=== PATIENT | male | born 1950 | race Caucasian/White ===

== ENCOUNTER → 2017-10-02 21:44 | Outpatient (CLI) | payer OTHER, MEDICARE, SELFPAY ==
[2017-10-02 22:01] LABS: Absolute Lymphocyte Count 2.99 X10^3/ul (0.83-4.51); Absolute Neutrophil Count 3.7 X10^3/uL (2.0-7.7); Basophil# 0.03 X10^3/uL; Basophil% 0.4 % (0-1); Eosinophil# 0.13 X10^3/uL; Eosinophils% 1.7 % (0-5); Hematocrit 38.5 % (40-54); Hemoglobin 12.8 g/dl (13.0-16.5); Lymphocyte # 2.99 X10^3/ul (4.0); Lymphocyte % 39.9 % (19-41); Mean Corp Hgb Conc 33.2 g/gl (32-36); Mean Corpuscular Volume 90.4 fL (80-94); Monocyte# 0.62 X10^3/uL; Monocyte% 8.3 % (0-10); Neutrophil # 3.71 X10^3/uL (2.7-7.7); Neutrophil % 49.6 % (47-70); Platelet Count 204 K/mm3 (150-450); RBC Distribution Width CV 13.9 % (11.6-14.6); RBC Distribution Width SD 45.6 fl (35.1-43.9); Red Blood Count 4.26 M/mm3 (4.6-6.2); White Blood Count 7.5 K/mm3 (4.4-11.0)
[2017-10-02 22:18] LABS: PSA,Total - Annual Screen 8.93 ng/mL (0.00-4.00)
[2017-10-02 22:22] LABS: POSITIVE COUNT NO; POSITIVE DIFFERENTIAL NO; POSITIVE MORPHOLOGY NO
[2017-10-04 11:11] LABS: PSA, Free 1.65 ng/mL; PSA, Free % 20.4 % (.); PSA, Total Ultrasensitive 8.1 ng/mL (0.0-4.0)
== END ==
PROVIDERS: Visit Provider Nurse Practitioner
DX: N40.0 Benign prostatic hyperplasia without lower urinary tract symptoms (principal); R97.20 Elevated prostate specific antigen [PSA]; D64.9 Anemia, unspecified
CPT/HCPCS: 84153; 84154; 85025; G0103

== ENCOUNTER → 2018-03-19 23:19 | Outpatient (CLI) | payer OTHER, MEDICARE, SELFPAY ==
[2018-03-22 09:53] LABS: PSA, Free 2.08 ng/mL; PSA, Free % 25.7 % (.); PSA, Total Ultrasensitive 8.1 ng/mL (0.0-4.0)
--- OUTSIDE RECORDS SUMMARY | 2018-05-22 00:01 | XMS RPT_ITS ---
:1950 Author Organization [facility] Care Team Providers Name Role Phone Alfonso Baptiste [facility] Attending Unavailable Alfonso Baptiste [facility] Referring Unavailable Alfonso Baptiste [facility] Primary Care Unavailable Alfonso Baptiste [facility] Attending Unavailable Alfonso Baptiste [facility] Primary Care Unavailable Alfonso Baptiste [facility] Attending Unavailable Alfonso Baptiste [facility] Referring Unavailable PADILLA FENTON MD Attending Unavailable ALFONSO BAPTISTE Primary Care Unavailable PADILLA FENTON MD Attending Unavailable BAPTISTE, ALFONSO Primary Care Unavailable LENNY GOODMAN MD Attending Unavailable BAPTISTE, ALFONSO Primary Care Unavailable LENNY GOODMAN MD Attending Unavailable BAPTISTE, ALFONSO Primary Care Unavailable JOSSY CISSE, PADILLA Attending Unavailable BAPTISTE, ALFONSO Primary Care Unavailable JOSSY CISES, PADILLA Attending Unavailable BAPTISTE, ALFONSO Primary Care Unavailable PROBLEMS PROBLEMS DATE TYPE CONDITION / CODE ATTENDING STATUS SOURCE 03/20/2018 Unknown N40.0 - Benign Baptiste, Active [place] prostatic Alfonso [facility] hyperplasia Hospital without lower Repository urinary tract symptoms / N40.0(ICD-10) 03/20/2018 Unknown R97.20 - Elevated Baptiste, Active [place] prostate specific Alfonso [facility] Community antigen [PSA] / Hospital R97.20(ICD-10) Repository 10/03/2017 Unknown D64.9 - Anemia, Baptiste, Active [place] unspecified / Alfonso [facility] Community D64.9(ICD-10) Hospital Repository PROCEDURES PROCEDURES No Procedure Records FoundRESULTS RESULTS OFFICE VISIT Observed: 03/22/2018 Status: F Source: [place] 6:40 PM [facility] REPOSITORY [facility] [address] [place] [address] OFFICE VISIT Date of Service: 03/22/18 MR#: [id number] Acct: [id number] Name: IMTIAZ POSADAS Jr. Rep #: [id number] : 1950 Provider: ALON Baptiste Age/Sex: 67/M Location: [facility] Status: Signed Intake Vital Signs03/22/18 Height 5 ft 9 in 03/22/18 Weight: 190 lb Intake Visit Reasons: RX REFILL Accompanied by: self Is patient in pain?: No Allergies Penicillins Allergy (Severe, Verified 03/20/18 17:16) RASH Qmohzha-Mnk-Lgr Reductase Inhibitor Allergy (Severe, Verified 03/20/18 17:16) MUSCLE ACHES Medications VITAMIN E See Rx Instructions .ROUTE .COMPLEX 03/20/18 [History Confirmed 03/20/18] amlodipine 10 mg tablet 10 mg PO DAILY 03/20/18 [History Confirmed 03/20/18] ascorbic acid (vitamin C) 500 mg capsule mg PO cap 03/20/18 [History Confirmed 03/20/18] aspirin 325 mg tablet 325 mg PO DAILY 03/20/18 [History Confirmed 03/20/18] cholecalciferol (vitamin D3) 1,000 unit capsule 1,000 unit PO DAILY 03/20/18 [History Confirmed 03/20/18] coenzyme Q10 100 mg capsule 100 mg PO DAILY 03/20/18 [History Confirmed 03/20/18] meclizine 12.5 mg tablet 12.5 mg PO TID PRN 03/20/18 [History Confirmed 03/20/18] niacin ER 500 mg tablet,extended release 24 hr 500 mg PO QHS 03/20/18 [History Confirmed 03/20/18] vitamin B complex tablet 1 tab PO DAILY 03/20/18 [History Confirmed 03/20/18] atorvastatin 40 mg tablet 40 mg PO DAILY #30 tab 03/22/18 [Rx Confirmed 03/22/18] lisinopril 10 mg tablet 10 mg PO DAILY #30 tab 03/22/18 [Rx Confirmed 03/22/18] metoprolol tartrate 25 mg tablet 25 mg PO BID #60 tab 03/22/18 [Rx Confirmed 03/22/18] rivaroxaban 20 mg tablet 20 mg PO DAILY #30 tab 03/22/18 [Rx Confirmed 03/22/18] tamsulosin 0.4 mg capsule 0.8 mg PO DAILY #60 cap 03/22/18 [Rx Confirmed 03/22/18] [facility] Medical History 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 (Acute) S/P triple vessel bypass (Acute) Social History Smoking Status: Current every day smoker second hand exposure: Yes alcohol intake: current substance use type: does not use HPI HPI (General) HPI HPI: KEN POSADAS, is a 67 M who presents to the office today for medication refills doing well no c/o feels well. Done with PT and still does his exercises and lifting weights . working on finding words and puzzles ROS Const Constitutional: No anorexia, body ache, chills, excessive sweating, fatigue, fever(s), frequent falls, headache(s), decreased energy, malaise, night sweats, snoring, weakness, weight change, sleep problems, abnormal sleep pattern, change in appetite or other Eyes Eyes: No blurry vision, change in vision, double vision, discharge, dry eyes, bulging eyes, floaters, visual disturbances, eye pain, light sensitivity, spots in vision, tunnel vision or other ENT ENT: No headache(s), abnormal hearing, ear pain, ear discharge, ear pressure, hearing loss, tinnitus, dizziness/vertigo, balance problems, nosebleed/epistaxis, nasal congestion, nasal obstruction, nose pain, sinus pressure, sinus pain, nasal discharge, post nasal drip, facial pain, dental pain, dry mouth, difficulty swallowing, bad breath, hoarseness, lip swelling, mouth lesions, mouth pain, neck pain, sore throat, tongue swelling, throat swelling or other Resp Respiratory: No snoring, cough, change in phlegm color, chest congestion, excessive phlegm production, hemoptysis, pain on inspiration, shortness of breath, pain with cough, stridor, wheezing or other Cardio Cardiology: No excessive sweating, chest pain at rest, chest pain with exertion, leg pain with exertion, shortness of breath, dyspnea on exertion, generalized swelling, irregular heart rhythm, lightheadedness, orthopnea, radiating jaw, neck or arm pain, fast heart rate, slow heart rate, palpitations or other Gastro GI: No other, No Difficulty Swallowing, No abdominal pain, No belching, No bloating, No change in bowel habits, No change in stool character, No coffee ground emesis, No constipation, No cramping, No diarrhea, No heartburn, No feeling full early, No excessive flatus, No incontinent of stools, No Vomiting blood/hematemesis, No Blood in stool, No loose stools, No Black,tarry stools, No nausea/dyspepsia, No pain with swallowing, No vomiting, No hemorrhoids, No rectal pain Genitourinary: No urinary frequency, difficulty urinating, burning urination, painful urination, urinary urgency or blood in urine Musc Musculoskeletal: No neck pain, abnormal walking, joint pain, back pain, deformity, joint swelling, limited range of motion, loss of height, muscle cramps, muscle weakness, decreased muscle mass, body aches, numbness, radiating pain into limb, stiffness, tingling or other Skin Skin: No acne, hair loss, change in hair, nail changes, boil, change in skin color, dry skin, redness, excessive hair growth, yellowing of the skin, lesions, itching, rash, skin pain, skin ulcer, sores, skin swelling, wounds or other Breast Breast: No other Neuro Neurology: No frequent falls, headache(s), weakness, visual disturbances, abnormal hearing, abnormal walking, numbness, tingling, abnormal movements, abnormal speech, behavioral changes, confusion, unsteady gait/balance, dizziness, lack of coordination, loss of vision, memory loss, restless legs, fainting, tremor(s) or other Psych Psychiatric: No abnormal sleep pattern, No change in appetite, No behavioral changes, No confusion, No memory loss, No lack of enjoyment, No anxiety, No depression, No difficulty concentrating, No hopelessness, No irritability, No mood swings, No panic attacks, No paranoia, No Thoughts of harming yourself/Others, No hallucinations, No other Endo Endo: No excessive sweating, No fatigue, No other Aller/Imm Allergy/Immunologic: No lip swelling, tongue swelling, throat swelling, wheezing or itchy eyes Exam Const Constitutional: Yes cooperative, Yes healthy appearing Orientation: Yes alert, awake and oriented x3 Chest Chest palpation AND inspection: Yes normal inspection of the chest Resp Effort AND Inspection: No stridor Auscultation: Yes clear to auscultation bilaterally Cardio Palpitation: Yes normal PMI Rate: Yes regular rate Rhythm: Yes regular rhythm GI Inspection: Yes normal to inspection Auscultation: Yes normal bowel sounds Rectal Exam: No hemorrhoids Extrem General: Yes normal to inspection Neuro General: Yes alert and oriented x3 Motor: No weakness Psych Appearance: Positive grossly normal Mood: Positive congruent mood Affect: Positive normal affect Assessment AND Plan Problems 1. Benign prostatic hyperplasia without lower urinary tract symptoms N40.0 2. Essential hypertension I10 3. Mixed hyperlipidemia E78.2 4. Anemia, unspecified type D64.9 Patient Instructions continue the medications as prescribed follow up as needed Will call with the lab results Orders Orders: Medications New: Discontinued: Coding Level of Care Code Off vis,est,level 3 Diagnoses Benign prostatic hyperplasia without lower urinary tract symptoms N40.0 Lower urinary tract symptom presence: symptoms absent Essential hypertension I10 Hypertension type: essential hypertension Mixed hyperlipidemia E78.2 Hyperlipidemia type: mixed hyperlipidemia Anemia, unspecified type D64.9 Anemia type: unspecified type 03/22/18 1840 <Electronically signed by Alfonso STANLEYC> Date Alfonso BRANDT CC: CBC W/DIFF, AUTOMATED Collected: 03/22/2018 Status: F Source: [place] 5:25 PM [facility] REPOSITORY TYPE CODE TESTS RESULT OUT OF RANGE REFERENCE UNITS LAB L100.1000 4.4-11.0 K/mm3 Normal WBC 7.6 LAB L100.1200 4.6-6.2 M/mm3 Normal RBC 4.63 LAB L100.1300 13.0-16.5 g/dl Normal HGB 14.0 LAB L100.1400 40-54 % Normal HCT 42.8 LAB L100.1500 80-94 fL Normal MCV 92.4 LAB L100.1600 27.0-32.0 pg Normal MCH 30.2 LAB L100.1700 32-36 g/gl Normal MCHC 32.7 LAB L100.1810 11.6-14.6 % Normal RDW CV 13.1 LAB L100.1820 35.1-43.9 fl Normal RDW SD 43.7 LAB L100.1900 150-450 K/mm3 Normal PLT 164 LAB L100.2000 6.2-12.0 fl Normal MPV 11.1 LAB L100.2100 47-70 % Normal NEUT% 55.4 LAB L100.2200 19-41 % Normal LY% 32.7 LAB L100.2300 0-10 % Normal MONO% 9.2 LAB L100.2400 0-5 % Normal EO% 2.0 LAB L100.2500 0-1 % Normal BASO% 0.4 LAB L100.2550 0.0-0.9 % Normal IM GRAN % 0.300 Result Comment: IG% - Immature Granulocytes (promyelocytes, myelocytes and metamyelocytes) > 1% indicates that a LEFT SHIFT is Present. LAB L100.2620 2.0-7.7 X10 3/uL Normal Absolute Neut 4.2 LAB L100.2720 0.83-4.51 X10 3/ul Normal Absolute Lymph 2.49 Performed By: #### L100.0100, L500.4050, L500.4100 #### [facility] [address] [place], [place], [address] COMPREHENSIVE METABOLIC Collected: 03/22/2018 Status: F Source: [place] [facility] 5:25 PM [facility] REPOSITORY TYPE CODE TESTS RESULT OUT OF RANGE REFERENCE UNITS LAB L501.0100 74-106 mg/dL Normal GLU 88 Result Comment: Please note revised GLUCOSE reference range effective 2017. LAB L501.1000 7-18 mg/dL High BUN 25 LAB L501.1100 0.70-1.30 mg/dL High CREAT,SERUM 1.48 Result Comment: The validity of the calculated GFR AND GFRAA in patients over 70 years has not been determined. Clinical correlation is essential. LAB L501.1110 >60 mL/min Low EST GFR 50 Result Comment: Non- GFR Calc LAB L501.1115 >60 mL/min Normal EST GFR - AA 61 Result Comment: GFR Calc LAB L501.1300 10-20 RATIO Normal BUN/CRE 16.9 LAB L501.1500 6.4-8.2 g/dL T Normal PROT 7.7 LAB L501.1800 3.2-5.0 g/dL Normal ALB 4.2 LAB L501.1950 2.2-4.2 g/dL Normal GLOB 3.5 LAB L501.2000 0.9-2.4 RATIO Normal A/G 1.2 LAB L501.2200 8.5-10.1 mg/dL CA Normal 8.9 LAB L501.4100 15-37 U/L Normal AST 31 LAB L501.4305 45-117 U/L Normal ALK P 74 LAB L501.4405 16-61 U/L High ALT 62 LAB L501.4600 0.20-1.00 mg/dL T Normal BILI 0.60 LAB L501.5300 136-145 mmol/L NA Normal 139 LAB L501.5600 3.5-5.1 mmol/L K Normal 4.2 LAB L501.5900 98-107 mmol/L CL Normal 106 LAB L501.6100 21.0-32.0 mmol/L Normal CO2 26.0 LAB L501.6200 5-15 Normal GAP 7 Performed By: #### L100.0100, L500.4050, L500.4100 #### [facility] [address] [place], [place], [address] LIPID PROFILE Collected: 03/22/2018 Status: F Source: [place] 5:25 PM [facility] REPOSITORY TYPE CODE TESTS RESULT OUT OF RANGE REFERENCE UNITS LAB L501.4900 200 mg/dL Normal CHOL 152 Result Comment: <200 mg/dL Desirable 200-240 mg/dL Borderline >240 mg/dL High Risk LAB L501.5000 mg/dL High TRIG 248 Result Comment: The drugs N-Acetylcysteine and Metamizole may falsely depress this assay. Serum Triglycerides Reference Interval Normal <150 mg/dL Borderline high 150 - 199 mg/dL High 200 - 499 mg/dL Very High > or = 500 mg/dL LAB L501.6400 mg/dL Low HDL 35 Result Comment: The drugs N-Acetylcysteine and Metamizole may falsely depress this assay. Reference Range HDL <40 mg/dL Low HDL Cholesterol HDL >or= 60 mg/dL High HDL Cholesterol LAB L501.6500 0-130 mg/dL Normal LDL 67 LAB L501.6600 5-40 mg/dL High VLDL 50 Performed By: #### L100.0100, L500.4050, L500.4100 #### [facility] [address] [place], [address] PSA TOTAL+%FREE Collected: 03/19/2018 Status: F Source: [place] 5:10 PM [facility] REPOSITORY TYPE CODE TESTS RESULT OUT OF RANGE REFERENCE UNITS LAB L3110.0700 0.0-4.0 ng/mL High PSA, 8.1 TOTAL Result Comment: Aileen ECLIA methodology. According to the [employer], Serum PSA should decrease and remain at undetectable levels after radical prostatectomy. The AUA defines biochemical recurrence as an initial PSA value 0.2 ng/mL or greater followed by a subsequent confirmatory PSA value 0.2 ng/mL or greater. Values obtained with different assay methods or kits cannot be used interchangeably. Results cannot be interpreted as absolute evidence of the presence or absence of malignant disease. LAB L3110.0800 N/A ng/mL Normal PSA, 2.08 FREE Result Comment: Aileen ECLIA methodology. LAB L3110.0900 . % Normal PSA, FREE 25.7 % Result Comment: The table below lists the probability of prostate cancer for men with non-suspicious LIU results and total PSA between 4 and 10 ng/mL, by patient age (Louie et al, CATHERINE 1998, 279:1542). % Free PSA 50-64 yr 65-75 yr 0.00-10.00% 56% 55% 10.01-15.00% 24% 35% 15.01-20.00% 17% 23% 20.01-25.00% 10% 20% >25.00% 5% 9% Please note: Louie et al did not make specific recommendations regarding the use of percent free PSA for any other population of men. Performed at: [facility] [address] [id number] Director Biologics: Robbie Mulligan PhD, Phone: [phone] Performed By: #### L3110.0500 #### [facility] (refer to report for specific site) refer to report for address and phone number AMB OFFICE-PROGRESS Observed: 12/11/2017 Status: F Source: [facility] NOTES-PROVIDER 8:39 AM [facility] REPOSITORY Patient: IMTIAZ POSADAS Age: 67 years Sex: Male : 1950 Associated Diagnoses: None Author: JOSSY CISSE, [facility] Visit Information Visit type: Scheduled follow-up. Accompanied by: No one. Source of history: Self. History limitation: None. Chief Complaint 12/10/2017 10:21 EDT HLD, CAD History of Present Illness Cuauhtemoc is here for follow-up for his coronary artery disease hypertension and hyperlipidemia. He lost to 60% of his vision in the right eye and his balance is getting better and is looks much michael r since last visit. He is able to walk, drive and take care of the cooking in the kitchen and does household work. No chest pain no shortness of breath no jaw pain no lightheadedness but feels rather unsteady at times. Blood pressure 138/73 and is very compliant with his diet and medications. He is beginning to accept that he had a stroke but is recovering pretty well. Review of Systems Constitutional: Negative. Eye: Negative. Ear/Nose/Mouth/Throat: Negative. Respiratory: No shortness of breath, No cough, No wheezing. Cardiovascular: No chest pain, No palpitations, No peripheral edema. Gastrointestinal: No nausea, No vomiting, No heartburn, No abdominal pain. Genitourinary: Negative. Hematology/Lymphatics: Negative. Endocrine: Negative. Immunologic: Negative. Musculoskeletal: Negative. Integumentary: Negative. Psychiatric: Negative. Health Status Allergies: Allergic Reactions (All) Severity Not Documented Penicillins- Childhood rxn -rash. Canceled/Inactive Reactions (All) No Known Medication Allergies, Allergies (1) Active Reaction penicillins childhood rxn -rash Current medications: (Selected) Prescriptions Prescribed Antivert 12.5 mg oral tablet: 12.5 mg = 1 tabs, ORAL, TID, PRN: as needed for dizziness, 90 tabs, 0 Refill(s) Flomax 0.4 mg oral capsule: 0.8 mg = 2 caps, ORAL, QHS, 60 caps, 0 Refill(s) Xarelto 20 mg oral tablet: 20 mg = 1 tabs, ORAL, DAILY WITH SUPPER, 30 tabs, 0 Refill(s) atorvastatin 40 mg oral tablet: 40 mg = 1 tabs, ORAL, DAILY, 30 tabs, 0 Refill(s) lisinopril 10 mg oral tablet: 10 mg = 1 tabs, ORAL, DAILY, 30 tabs, 0 Refill(s) metoprolol tartrate 25 mg oral tablet: 25 mg = 1 tabs, ORAL, BID, 60 tabs, 0 Refill(s) senna 17.2 mg oral tablet: 34.4 mg, ORAL, QHS, 2 tabs oral at bedtime, PRN: as needed for constipation, 60 tabs, 0 Refill(s) Documented Medications Documented Tylenol 325 mg oral capsule: 650 mg, Nasogastric Tube, [id number], PRN: as needed for pain, 0 Refill(s) amLODIPine 10 mg oral tablet: 10 mg = 1 tabs, ORAL, DAILY, 90 tabs, 3 Refill(s) aspirin 81 mg oral tablet, chewable: 81 mg = 1 tabs, ORAL, DAILY WITH BREAKFAST, 0 Refill(s) Problem list: Active Problems (7) At risk for falls CAD (coronary artery disease) Cerebrovascular accident (CVA) HLD (hyperlipidemia) HTN (hypertension) Retinal disorder S/p CABG (coronary artery bypass graft) Histories Past Medical History: No qualifying data available Family History: Father High blood pressure.... Mother High blood pressure.... Procedure history: Transesophageal Echocardiogram. ([id number]) on 11/03/2016 at 66 Years. Cardioversion. ([id number]) on 11/03/2016 at 66 Years. Coronary Artery Bypass Graft (CABG). ([id number]) on 10/27/2016 at 66 Years. Comments: 10/27/2016 12:27 - Daren Diop RN RIGHT RADIAL ARTERY HARVEST. Coronary Angiograms. ([id number]) on 10/26/2016 at 66 Years. laser rt eye. Comments: 10/26/2016 18:50 - Tere Helton RN 4 mo cardiac stents x2. Comments: 10/26/2016 18:51 - Tere Helton RN 13 yr ago Social History Social & Psychosocial Habits Alcohol 10/26/2016 Use: Current Type: Beer Frequency: 1-2 times per week Exercise 01/04/2017 Risk Assessment: Regular exercise Home/Environment 10/26/2016 Lives with: Spouse *Living Situation Prior to Admission Home/Independent Home equipment: None Monitoring Equipment in home bp machine *Special Services and Community Resources Prior to Admission None *Mobility Assistance Prior to Admission Independent Home Barriers None *Will patient require additional/new services upon discharge Yes Comment: ss for dc planning. going for open heart in am - 10/26/2016 18:49 - Tere Helton RN Other 06/13/2017 Name: caffiene Comment: 2-3 cups coffee daily - 06/13/2017 14:14 - Phyllis Griffin MA Substance Abuse 10/26/2016 Risk Assessment: Denies Substance Abuse Tobacco 10/26/2016 Use: Former smoker Type: Cigarettes Stopped at age: 29 Years *Exposure to Tobacco Smoke No Exposure Comment: stopped cigars 1 yr ago - 10/26/2016 18:48 - Danie RN, Tere Domestic Concerns 10/26/2016 Feels highly stressed: No *Requesting to speak to someone regarding stress No Emotional Support Available Yes Coping Effective *Patient's Responsibilities Driving, Hobbies/Play/Sports, Housework, Laundry, Meal preparation, Yard work *Financial Concerns Regarding Hospitalization/Discharge No Financial Concerns No *Requesting to speak to someone regarding financial concerns No Concern for family members at home: No Major illness in household: No *Family/Friends available to help: Yes . Physical Examination Temperature 97 (10:22) Systolic Blood Pressure No result Diastolic Blood Pressure No result Pulse 64 (10:22) SpO2 No result Respiratory Rate No result VS/Measurements Documented vital signs: Blood Pressure ( Systolic 138 mmHg, Diastolic 73 mmHg ) General: Alert and oriented, No acute distress. Eye: Normal conjunctiva, Vision unchanged. HENT: Normal hearing. Neck: Supple, Non-tender, No carotid bruit, No jugular venous distention, No lymphadenopathy. Respiratory: Lungs are clear to auscultation, Breath sounds are equal, Symmetrical chest wall expansion. Cardiovascular: Normal rate, No gallop, Good pulses equal in all extremities, Normal peripheral perfusion, No edema. Bruit: None. Gastrointestinal: Soft, Non-tender, Normal bowel sounds. Genitourinary: No costovertebral angle tenderness. Musculoskeletal: No tenderness, No swelling. Integumentary: Warm, Dry. Neurologic: Alert, Normal sensory, Normal motor function, Cranial Nerves II-XII are grossly intact. Review / Management No qualifying data available Impression and Plan 1.CAD 2.CABG and status post AF but now in sinus 3.Right cerebellar CVA: recovering well 4.Hypertension 5.Hyperlipidemia 6.Continue current activity 7.Continue current medicatoins 8.Follow up in six months 9.Copy to Alfonso Baptiste PROVIDER LETTER - Observed: 12/11/2017 Status: F Source: [facility] AMBULATORY 8:34 AM [facility] REPOSITORY ALFONSO BAPTISTE, [address] [facility] [address] [place] [id number] RE: IMTIAZ CUAUHTEMOC - 1950 12/10/2017 Dear ALFONSO BAPTISTE This document is confidential and intended solely for the use of the individual or entity to which they are addressed. If you are not the named addressee, please disregard and do not disseminate, distr ibute or copy this information. If you are not the intended recipient you are notified that any disclosure of this information and its contents are strictly prohibited. If you have any questions about this document, please contact the office. Sincerely, Rachel Reynolds [facility] The following document(s) were included in the letter: December 10, 2017 15:13:00 EDT - (12/10/2017) Cardiiology Office Notes OFFICE VISIT Observed: 10/11/2017 Status: F Source: [place] 1:30 PM [facility] REPOSITORY [facility] [address] [place] [address] OFFICE VISIT Date of Service: 10/02/17 MR#: [id number] Acct: [id number] Name: KEN POSADAS Rep #: [id number] : 1950 Provider: [place] Nurse RN Age/Sex: 67/M Location: [facility] Status: Signed Intake Intake Visit Reasons: blood draw HPI HPI (General) HPI HPI: KEN POSADAS, is a 67 M who presents to the office today for Assessment AND Plan Orders Orders: 10/11/17 1330 <Electronically signed by Alfonso BRANDT> Date Alfonso BRANDT CC: PSA,TOTAL - ANNUAL Collected: 10/02/2017 Status: F Source: [place] SCREEN 5:20 PM [facility] REPOSITORY TYPE CODE TESTS RESULT OUT OF REFERENCE UNITS RANGE LAB L501.9910 0.00-4.00 ng/mL High PSA,TOT 8.93 SCREEN Result Comment: This test was performed using the TPSA assay method for the Towi chemistry system. Values obtained with different assay methods cannot be used interchangably. When changing PSA assays in the course of monitoring a patient, additional sequential testing should be carried out to confirm baseline values. Performed By: #### L501.9910 #### [facility] [address] [place], [address] #### L3110.0500 #### [facility] (refer to report for specific site) refer to report for address and phone number PSA TOTAL+%FREE Collected: 10/02/2017 Status: F Source: [place] 5:20 PM [facility] REPOSITORY TYPE CODE TESTS RESULT OUT OF RANGE REFERENCE UNITS LAB L3110.0700 0.0-4.0 ng/mL High PSA, 8.1 TOTAL Result Comment: Aileen ECLIA methodology. According to the [employer], Serum PSA should decrease and remain at undetectable levels after radical prostatectomy. The AUA defines biochemical recurrence as an initial PSA value 0.2 ng/mL or greater followed by a subsequent confirmatory PSA value 0.2 ng/mL or greater. Values obtained with different assay methods or kits cannot be used interchangeably. Results cannot be interpreted as absolute evidence of the presence or absence of malignant disease. LAB L3110.0800 N/A ng/mL Normal PSA, 1.65 FREE Result Comment: Aileen ECLIA methodology. LAB L3110.0900 . % Normal PSA, FREE 20.4 % Result Comment: The table below lists the probability of prostate cancer for men with non-suspicious LIU results and total PSA between 4 and 10 ng/mL, by patient age (Louie et al, CATHERINE 1998, 279:1542). % Free PSA 50-64 yr 65-75 yr 0.00-10.00% 56% 55% 10.01-15.00% 24% 35% 15.01-20.00% 17% 23% 20.01-25.00% 10% 20% >25.00% 5% 9% Please note: Louie et al did not make specific recommendations regarding the use of percent free PSA for any other population of men. Performed at: [facility] [id number] Director Biologics: Robbie Mulligan PhD, Phone: [phone] Performed By: #### L501.9910 #### [facility] [place], [address] #### L3110.0500 #### [facility] (refer to report for specific site) refer to report for address and phone number CBC W/DIFF, AUTOMATED Collected: 10/02/2017 Status: F Source: [place] 5:20 PM [facility] REPOSITORY TYPE CODE TESTS RESULT OUT OF RANGE REFERENCE UNITS LAB L100.1000 4.4-11.0 K/mm3 Normal WBC 7.5 LAB L100.1200 4.6-6.2 M/mm3 Low RBC 4.26 LAB L100.1300 13.0-16.5 g/dl Low HGB 12.8 LAB L100.1400 40-54 % Low HCT 38.5 LAB L100.1500 80-94 fL Normal MCV 90.4 LAB L100.1600 27.0-32.0 pg Normal MCH 30.0 LAB L100.1700 32-36 g/gl Normal MCHC 33.2 LAB L100.1810 11.6-14.6 % Normal RDW CV 13.9 LAB L100.1820 35.1-43.9 fl High RDW SD 45.6 LAB L100.1900 150-450 K/mm3 Normal PLT 204 LAB L100.2000 6.2-12.0 fl Normal MPV 11.0 LAB L100.2100 47-70 % Normal NEUT% 49.6 LAB L100.2200 19-41 % Normal LY% 39.9 LAB L100.2300 0-10 % Normal MONO% 8.3 LAB L100.2400 0-5 % Normal EO% 1.7 LAB L100.2500 0-1 % Normal BASO% 0.4 LAB L100.2550 0.0-0.9 % Normal IM GRAN % 0.100 Result Comment: IG% - Immature Granulocytes (promyelocytes, myelocytes and metamyelocytes) > 1% indicates that a LEFT SHIFT is Present. LAB L100.2620 2.0-7.7 X10 3/uL Normal Absolute Neut 3.7 LAB L100.2720 0.83-4.51 X10 3/ul Normal Absolute Lymph 2.99 Performed By: #### L100.0100 #### [facility] [address] [facility] [facility], [address] [facility] OFFICE-PROGRESS Observed: 06/18/2017 Status: F Source: [facility] NOTES-PROVIDER 8:39 AM [facility] REPOSITORY Patient: IMTIAZ POSADAS Age: 66 years Sex: Male : 1950 Associated Diagnoses: None Author: JOSSY CISSE, PADILLA Visit Information Visit type: Scheduled follow-up. Accompanied by: No one. Source of history: Self. History limitation: None. Chief Complaint History of Present Illness This is follow uop visit for Imtiaz for his CAD and CABG and he is doing much better now. He completely recovered from his CVA though his balance is not perfect yet. He id driving now but his blood press ure is high today at 150/85 and I am going to increase his amlodipine to 10mg. He remains in sinus. No chest pain or dyspnea or palpitations. Review of Systems Constitutional: Negative. Eye: Negative. Ear/Nose/Mouth/Throat: Negative. Respiratory: No shortness of breath, No cough, No wheezing. Cardiovascular: No chest pain, No palpitations, No peripheral edema. Gastrointestinal: No nausea, No vomiting, No heartburn, No abdominal pain. Genitourinary: Negative. Hematology/Lymphatics: Negative. Endocrine: Negative. Immunologic: Negative. Musculoskeletal: Negative. Integumentary: Negative. Psychiatric: Negative. Health Status Allergies: Allergic Reactions (All) Severity Not Documented Penicillins- Childhood rxn -rash. Canceled/Inactive Reactions (All) No Known Medication Allergies, Allergies (1) Active Reaction penicillins childhood rxn -rash Current medications: (Selected) Prescriptions Prescribed Antivert 12.5 mg oral tablet: 12.5 mg = 1 tabs, ORAL, TID, PRN: as needed for dizziness, 90 tabs, 0 Refill(s) Flomax 0.4 mg oral capsule: 0.8 mg = 2 caps, ORAL, QHS, 60 caps, 0 Refill(s) Xarelto 20 mg oral tablet: 20 mg = 1 tabs, ORAL, DAILY WITH SUPPER, 30 tabs, 0 Refill(s) amLODIPine 5 mg oral tablet: 5 mg = 1 tabs, ORAL, DAILY, 30 tabs, 0 Refill(s) atorvastatin 40 mg oral tablet: 40 mg = 1 tabs, ORAL, DAILY, 30 tabs, 0 Refill(s) lisinopril 10 mg oral tablet: 10 mg = 1 tabs, ORAL, DAILY, 30 tabs, 0 Refill(s) metoprolol tartrate 25 mg oral tablet: 25 mg = 1 tabs, ORAL, BID, 60 tabs, 0 Refill(s) senna 17.2 mg oral tablet: 34.4 mg, ORAL, QHS, 2 tabs oral at bedtime, PRN: as needed for constipation, 60 tabs, 0 Refill(s) Documented Medications Documented Senokot 8.6 mg oral tablet: 17.2 mg = 2 tabs, ORAL, QHS, PRN: Constipation, 0 Refill(s) Tylenol 325 mg oral capsule: 650 mg, Nasogastric Tube, [id number], PRN: as needed for pain, 0 Refill(s) amLODIPine 10 mg oral tablet: 10 mg = 1 tabs, ORAL, DAILY, 90 tabs, 3 Refill(s) aspirin 81 mg oral tablet, chewable: 81 mg = 1 tabs, ORAL, DAILY WITH BREAKFAST, 0 Refill(s) Problem list: Active Problems (7) At risk for falls CAD (coronary artery disease) Cerebrovascular accident (CVA) HLD (hyperlipidemia) HTN (hypertension) Retinal disorder S/p CABG (coronary artery bypass graft) Histories Past Medical History: No qualifying data available Family History: Father High blood pressure.... Mother High blood pressure.... Procedure history: Transesophageal Echocardiogram. (23908) on 11/03/2016 at 66 Years. Cardioversion. (98480) on 11/03/2016 at 66 Years. Coronary Artery Bypass Graft (CABG). (20161) on 10/27/2016 at 66 Years. Comments: 10/27/2016 12:27 - Daren Diop RN RIGHT RADIAL ARTERY HARVEST. Coronary Angiograms. (77633) on 10/26/2016 at 66 Years. laser rt eye. Comments: 10/26/2016 18:50 - Tere Helton RN 4 mo cardiac stents x2. Comments: 10/26/2016 18:51 - Tere Helton RN 13 yr ago Social History Social & Psychosocial Habits Alcohol 10/26/2016 Use: Current Type: Beer Frequency: 1-2 times per week Exercise 01/04/2017 Risk Assessment: Regular exercise Home/Environment 10/26/2016 Lives with: Spouse *Living Situation Prior to Admission Home/Independent Home equipment: None Monitoring Equipment in home bp machine *Special Services and Community Resources Prior to Admission None *Mobility Assistance Prior to Admission Independent Home Barriers None *Will patient require additional/new services upon discharge Yes Comment: for dc planning. going for open heart in am - 10/26/2016 18:49 - Tere Helton RN Other 06/13/2017 Name: caffiene Comment: 2-3 cups coffee daily - 06/13/2017 14:14 - Gaby FRANCO Phyllis Hunter Substance Abuse 10/26/2016 Risk Assessment: Denies Substance Abuse Tobacco 10/26/2016 Use: Former smoker Type: Cigarettes Stopped at age: 29 Years *Exposure to Tobacco Smoke No Exposure Comment: stopped cigars 1 yr ago - 10/26/2016 18:48 - Tere Helton RN Domestic Concerns 10/26/2016 Feels highly stressed: No *Requesting to speak to someone regarding stress No Emotional Support Available Yes Coping Effective *Patient's Responsibilities Driving, Hobbies/Play/Sports, Housework, Laundry, Meal preparation, Yard work *Financial Concerns Regarding Hospitalization/Discharge No Financial Concerns No *Requesting to speak to someone regarding financial concerns No Concern for family members at home: No Major illness in household: No *Family/Friends available to help: Yes . Physical Examination No qualifying data available. VS/Measurements Documented vital signs: Blood Pressure ( Systolic 150 mmHg, Diastolic 85 mmHg ) General: Alert and oriented, No acute distress. Eye: Normal conjunctiva, Vision unchanged. HENT: Normal hearing. Neck: Supple, Non-tender, No carotid bruit, No jugular venous distention, No lymphadenopathy. Respiratory: Lungs are clear to auscultation, Breath sounds are equal, Symmetrical chest wall expansion. Cardiovascular: Normal rate, No gallop, Good pulses equal in all extremities, Normal peripheral perfusion, No edema. Bruit: None. Gastrointestinal: Soft, Non-tender, Normal bowel sounds. Genitourinary: No costovertebral angle tenderness. Musculoskeletal: No tenderness, No swelling. Integumentary: Warm, Dry. Neurologic: Alert, Normal sensory, Normal motor function, Cranial Nerves II-XII are grossly intact. Review / Management No qualifying data available Impression and Plan 1.CAD 2.CABG and status post AF but now in sinus 3.Right cerebellar CVA: recovering well 4.Hypertension 5.Hyperlipidemia 6.Will continue physical therapy 7.Continue current medicatoins 8.Follow up in six months but BP check in one month 9.Copy to Alfonso Baptiste PROVIDER LETTER - Observed: 06/18/2017 Status: F Source: [facility] 8:39 AM [facility] REPOSITORY ALFONSO BAPTISTE, [address] [facility] [address] [place] [address] RE: IMTIAZ POSADAS - 1950 06/13/2017 Dear ALFONSO BAPTISTE This document is confidential and intended solely for the use of the individual or entity to which they are addressed. If you are not the named addressee, please disregard and do not disseminate, distr ibute or copy this information. If you are not the intended recipient you are notified that any disclosure of this information and its contents are strictly prohibited. If you have any questions about this document, please contact the office. Sincerely, Gaby FRANCO, [facility] The following document(s) were included in the letter: June 13, 2017 03:39:00 EDT - (06/13/2017) Cardiiology Office Notes PROGRESS Observed: 05/24/2017 Status: COMPLETED Source: [place] 10:12 AM [facility] REPOSITORY HNO ID: [id number] Author: Que Pederson Nr-Cup Trimming Machine Operator Service: (none) Author Type: (none) Type: Progress Notes Filed: 05/24/2017 10:13 AM Note Text: Noted Encounter now closed. PROGRESS Observed: 05/16/2017 Status: COMPLETED Source: [place] 12:13 PM [facility] REPOSITORY HNO ID: [id number] Author: Kip Barry Service: (none) Author Type: Physician Type: Progress Notes Filed: 05/24/2017 10:13 AM Note Text: >>> The notes/labs/tests related to this encounter have been reviewed. >>>. I concur PROGRESS Observed: 05/16/2017 Status: COMPLETED Source: [place] 10:55 AM [facility] REPOSITORY HNO ID: [id number] Author: Que Pederson Nr-Cup Trimming Machine Operator Service: (none) Author Type: (none) Type: Progress Notes Filed: 05/24/2017 10:13 AM Note Text: PHMA TEAMLET DOCUMENTATION Provider Action/FYI: Patient has not been seen in office since 11/14/2012. Per PCP remove from PCP list. PSR Action/FYI: NA Teamlet has identified patient by name and date of . Team: Diana Pereira MA; Riddhi Kimball RN and TRAV Enrique ? Last Office Visit:11/14/2012 ? Next Office Visit: Visit date not found ? Last BP/Labs: Blood Pressure: Last 3 Encounter BP Readings: Date: BP: 11/16/2016 143/83 11/14/2012 176/92 11/30/2011 128/84 Lipids: Cholesterol, Total (mg/dL) Date Value 08/29/2011 203 02/09/2011 209 HDL Cholesterol (mg/dL) Date Value 08/29/2011 39 02/09/2011 47 LDL Cholesterol (mg/dL) Date Value 08/29/2011 140 LDL Calculated (mg/dL) Date Value 02/09/2011 144 05/28/2008 82 Triglyceride (mg/dL) Date Value 08/29/2011 119 02/09/2011 92 HGB A1C: No results found for: HBA1C TSH: TSH (uU/mL) Date Value 08/29/2011 3.200 02/09/2011 5.310 ) Care Gap: CVD - Needs Lipid panel, has not had one in the last year. No PCP appointment in last year Plan: Remove PCP name from record Routing encounter to PCP to approve removal of PCP from record. [facility] CNPTOUTREACH Observed: 05/16/2017 Status: COMPLETED Source: [place] 12:00 AM [facility] REPOSITORY Patient Outreach (INTMBR) IMTIAZ POSADAS ([id number]) 1950 M Date Time Provider Department 05/16/17 QUE PEDERSON (JOAN) ALFRED During your visit today, we recorded the following information about you: Que Sherwood 05/24/2017 10:13 AM Signed LOCATED WITHIN [facility] TEAMLET DOCUMENTATION Provider Action/FYI: Patient has not been seen in office since 11/14/2012. Per PCP remove from PCP list. PSR Action/FYI: NA Teamlet has identified patient by name and date of . Team: Diana Pereira MA; Riddhi Kimball RN and TRAV Enrique ? Last Office Visit:11/14/2012 ? Next Office Visit: Visit date not found ? Last BP/Labs: Blood Pressure: Last 3 Encounter BP Readings: Date: BP: 11/16/2016 143/83 11/14/2012 176/92 11/30/2011 128/84 Lipids: Cholesterol, Total (mg/dL) Date Value 08/29/2011 203 02/09/2011 209 HDL Cholesterol (mg/dL) Date Value 08/29/2011 39 02/09/2011 47 LDL Cholesterol (mg/dL) Date Value 08/29/2011 140 LDL Calculated (mg/dL) Date Value 02/09/2011 144 05/28/2008 82 Triglyceride (mg/dL) Date Value 08/29/2011 119 02/09/2011 92 HGB A1C: No results found for: HBA1C TSH: TSH (uU/mL) Date Value 08/29/2011 3.200 02/09/2011 5.310 ) Care Gap: CVD - Needs Lipid panel, has not had one in the last year. No PCP appointment in last year Plan: Remove PCP name from record Routing encounter to PCP to approve removal of PCP from record. Que Pederson [facility] Kip Barry MD 05/24/2017 10:13 AM Signed ANDgt;ANDgt;ANDgt; The notes/labs/tests related to this encounter have been reviewed. ANDgt;ANDgt;ANDgt;. I concur [facility] 05/24/2017 10:13 AM Signed Noted Encounter now closed. Allergies As of Date: 05/16/2017 Noted Allergy Reaction PENICILLINS 08/09/2009 Date Reviewed: 11/17/2016 Reviewed by: Mayco Kerr) HEATH Martinez - Fully Assessed Reason for Visit: PHMA/Care Gap Outreach [7076] Cmt: Remove PCP from record no visit since 11/14/2012 Prescriptions as of 05/16/2017 Sig: ASPIRIN 81 MG CHEWABLE TABLET Take 81 mg by mouth once dahiana* AMIODARONE 200 MG TABLET Take 200 mg by mouth once hasmukh* HYDROCODONE 5 MG-ACETAMINOPHE* Take 1 tablet by mouth every * DILTIAZEM SR 120 MG 24 HR CAP Take 120 mg by mouth once hasmukh* COENZYME Q10 100 MG CAPSULE Take 100 mg by mouth once hasmukh* XARELTO ORAL Take by mouth. LISINOPRIL 40 MG TABLET Take 2 tablets by mouth once * CLONIDINE HCL 0.2 MG TABLET Take 1 tablet by mouth twice * METOPROLOL SUCCINATE ER 100 M* Take 2 tablets by mouth once * Patient taking differently: Take 25 mg by mouth twice hasmukh* * ASCORBIC ACID (VITAMIN C) 500* Take 1 tablet by mouth once d* * CHOLECALCIFEROL (VITAMIN D3) * Take 1 capsule by mouth once * * VIT B COMPLEX-FOLIC ACID 0.4 * Take by mouth daily * OMEGA 1-IBZ-VBH-FISH OIL 1,00* Take one by mouth daily * UBIDECARENONE-OMEGA 3-VIT E 5* Take by mouth daily * RESVERATROL 100 MG CAPSULE 37.5mg daily * CALCIUM 500 MG TABLET Take 1 tablet by mouth twice * Problem List As Of Date 05/16/2017 Noted Resolved CAD (Coronary Artery Disease) [I25.10] Hyperlipidemia [E78.5] HTN (Hypertension) [I10] Encounter Status:Closed by QUE PHAN on 05/24/17 ALLERGIES ALLERGIES DATE TYPE / CODE NAME / CODE REACTION SEVERITY SOURCE 03/20/2018 Drug Penicillins/F001 Rash [facility] Allergy/416 017858(RXNORM) Hospital 933746(SNOM Repository ED CT) 03/20/2018 Drug Lvknrdo-Sfo-Yda MUSCLE ACHES [facility] Allergy/416 [facility] 081402(SNOM Inhibitor/S15088 Repository ED CT) 0095(RXNORM) ENCOUNTERS ENCOUNTERS ADMIT/DISCHARGE ACCOUNT NUMBER ADMITTING ENCOUNTER LOCATION SOURCE CLASS 03/22/2018 [id number] Ambulatory [facility] ding:[facility]SPEC Repository 03/19/2018 [id number] Ambulatory [facility] ding:[facility]SPEC Repository 12/10/2017 [id number] [facility] Repository 12/10/2017/12/11/19 [id number] [facility] 18 ing:AMBCARMR General oom: EX02 Health Center Repository 10/02/2017 [id number] Ambulatory [facility] ding:[facility]SPEC Repository 06/13/2017/06/14/19 [id number] [address] [facility] 18 ing:AMBCARMR General oom: 01 Health Center Repository 05/26/2017/05/27/19 [id number] Ambulatory [id number] [facility] 18 g:[facility] Repository 05/17/2017/05/18/19 [id number] [facility] 18 ing:[facility] Repository 03/29/2017/04/25/19 [id number] Ambulatory [id number] [facility] 18 g:[facility] Repository PAYERS PAYERS ENCOUNTER GUARANTOR PAYER SUBSCRIBER SOURCE 03/22/2018 IMTIAZ Yvette Primary Haily MOFFETTDARCY [address] Insurance:[facility]: [facility] [id number] [id number] Number: Repository [address]Nyb: [phone] [id number] [phone] () Date:[id number], [place] [address]DL: 03/22/2018 Secondary IMTIAZ Linda Insurance:MEDICARE Jr.: Community PART A [facility] Number: [id number] Hospital [id number] Repository Date:2018-03-22 03/22/2018 Tertiary NOT GIVENUNK Alexei Insurance:SELF PAY [facility] Number: Effective Repository Date:2018-03-22 03/19/2018 KEN G Primary Haily MOFFETTDARCY [id number] Insurance:[facility]: [facility] [id number] [place], [place] [address], [place] Number: Repository [address]Qvd: [phone] [id number] [phone] () Date:8579-00-67RL [address] [place] [address]GA: 03/19/2018 Secondary KEN G CARRIKER [place] Insurance:MEDICARE .: Community PART A BPolicy Number: [id number] Hospital [id number] Repository Date:2018-03-19 03/19/2018 Tertiary NOT GIVENUNK Alexei Insurance:SELF PAY [facility] Number: Effective Repository Date:2018-03-19 12/10/2017 IMTIAZ Crawford Primary HAILY NAJERA [facility] CARRIKERDOB: Insurance:UNITED CARRIKERDOB: General Health [facility] [id number] [place] Number: Effective [place], [place] Date:2008-02-27 - [place], [place] [address]Mow: [phone] [phone]~No Email [phone] () Name:CPDank BOX AddressTel: [address] [place] [address] [id number]: [phone] (WP) 12/10/2017 Secondary IMTIAZ Mann Insurance:MEDICAREPoli CARRIKERDOB: General Health cy Number: Effective [id number] Center Date:2008-02-27 - [place] Repository [id number], [place] Name:ALISSA [id number]~[email or web address] Email AddressTel: () (WP) 12/10/2017 IMTIAZ Crawford Primary HAILY NAJERA [facility] CARRIKERDOB: Insurance:UNITED CARRIKERDOB: General Health [facility] [id number] Center LUZ Number: Effective [place], [place] Date:2008[birth year]02-27 [place], [place] [address]Oga: [phone]~No Email [phone] () Name:TEDDY BLANCHARD AddressTel: [address]LLST[address] [place] [address] [phone]: [phone] (WP) 12/10/2017 Secondary IMTIAZ Yvette Mann Insurance:MEDICAREPoli CARRIKERDOB: General Health cy Number: Effective [id number] Center Date:2008-02-27 - [facility] Repository [id number], [place] Name:ALISSA [email or web address] Email AddressTel: () (WP) 10/02/2017 KEN G Primary Haily POSADAS Jr.649 [facility] [address]Kovity [id number] Number: Repository [address]Hhb: [phone] [id number] [phone] () Date:6912-06-30[address], [place] [address]QT: 10/02/2017 Secondary KEN G CARRIDARCY [place] Insurance:MEDICARE Jr.: Community PART A BPolicy Number: [id number] Hospital [id number] Repository Date:2017-10-02 10/02/2017 Tertiary NOT GIVENUNK Alexei Insurance:SELF PAY [facility] Number: Effective Repository Date:2017-10-02
== END ==
PROVIDERS: Family Provider Nurse Practitioner; PCP Nurse Practitioner; Referring Provider Nurse Practitioner; Visit Provider Nurse Practitioner
DX: N40.0 Benign prostatic hyperplasia without lower urinary tract symptoms (principal); R97.20 Elevated prostate specific antigen [PSA]
CPT/HCPCS: 84153; 84154

== ENCOUNTER → 2018-03-22 23:15 | Outpatient (CLI) | payer OTHER, MEDICARE, SELFPAY ==
[2018-03-22 16:55] VITALS: BMI 28.0
[2018-03-22 23:26] LABS: Absolute Lymphocyte Count 2.49 X10^3/ul (0.83-4.51); Absolute Neutrophil Count 4.2 X10^3/uL (2.0-7.7); Basophil# 0.03 X10^3/uL; Basophil% 0.4 % (0-1); Eosinophil# 0.15 X10^3/uL; Hematocrit 42.8 % (40-54); Lymphocyte # 2.49 X10^3/ul (4.0); Lymphocyte % 32.7 % (19-41); Mean Corp Hgb Conc 32.7 g/gl (32-36); Mean Corpuscular Hgb 30.2 pg (27.0-32.0); Mean Corpuscular Volume 92.4 fL (80-94); Mean Platelet Vol. 11.1 fl (6.2-12.0); Monocyte% 9.2 % (0-10); Neutrophil # 4.22 X10^3/uL (2.7-7.7); Neutrophil % 55.4 % (47-70); POSITIVE COUNT NO; POSITIVE DIFFERENTIAL NO; POSITIVE MORPHOLOGY NO; Platelet Count 164 K/mm3 (150-450); RBC Distribution Width CV 13.1 % (11.6-14.6); RBC Distribution Width SD 43.7 fl (35.1-43.9); Red Blood Count 4.63 M/mm3 (4.6-6.2); White Blood Count 7.6 K/mm3 (4.4-11.0)
[2018-03-22 23:39] LABS: ALB/GLOB Ratio 1.2 RATIO (0.9-2.4); AST(SGOT) 31 U/L (15-37); Alanine Aminotransfer ALT/SGPT 62 U/L (16-61); Albumin, Serum 4.2 g/dL (3.2-5.0); Alkaline Phosphatase 74 U/L (45-117); Anion Gap 7 (5-15); BUN 25 mg/dL (7-18); BUN/Creat Ratio 16.9 RATIO (10-20); Calcium,Total 8.9 mg/dL (8.5-10.1); Chloride 106 mmol/L (98-107); Cholesterol 152 mg/dL (200); Creatinine, Serum 1.48 mg/dL (0.70-1.30); EST Glomerular Filtration Rate 50 mL/min (>60); Est Glom Filt Rate - Afr Amer 61 mL/min (>60); Globulin 3.5 g/dL (2.2-4.2); Glucose 88 mg/dL (74-106); High Density Lipoprotein 35 mg/dL; Potassium 4.2 mmol/L (3.5-5.1); Protein, Total 7.7 g/dL (6.4-8.2); Sodium Level 139 mmol/L (136-145); Triglycerides 248 mg/dL; Very Low Density Lipoprotein 50 mg/dL (5-40)
== END ==
PROVIDERS: Referring Provider Nurse Practitioner; Visit Provider Nurse Practitioner
DX: I10 Essential (primary) hypertension (principal); E78.5 Hyperlipidemia, unspecified
CPT/HCPCS: 80053; 80061; 85025

== ENCOUNTER → 2019-03-14 21:17 | Outpatient (CLI) | payer OTHER, MEDICARE, SELFPAY ==
[2019-03-14 16:32] VITALS: BMI 27.3
[2019-03-14 21:21] LABS: Absolute Lymphocyte Count 2.37 X10^3/uL (0.83-4.51); Basophil# 0.04 X10^3/uL; Basophil% 0.6 % (0-1); Eosinophil# 0.16 X10^3/uL; Eosinophils% 2.2 % (0-5); Hematocrit 39.4 % (40-54); Hemoglobin 12.9 g/dL (13.0-16.5); Lymphocyte # 2.37 X10^3/ul (4.0); Lymphocyte % 32.6 % (19-41); Mean Corp Hgb Conc 32.7 g/dL (32-36); Mean Corpuscular Hgb 30.4 pg (27.0-32.0); Mean Corpuscular Volume 92.7 fL (80-94); Monocyte# 0.65 X10^3/uL; NRBC Flagged by Analyzer 0 % (0-5); Neutrophil # 4.03 X10^3/uL (2.7-7.7); Neutrophil % 55.5 % (47-70); Platelet Count 178 K/mm3 (150-450); RBC Distribution Width CV 12.7 % (11.6-14.6); RBC Distribution Width SD 43.3 fl (35.1-43.9); Red Blood Count 4.25 M/mm3 (4.6-6.2); White Blood Count 7.3 K/mm3 (4.4-11.0)
[2019-03-14 21:38] LABS: ALB/GLOB Ratio 1.2 RATIO (0.9-2.4); AST(SGOT) 24 U/L (15-37); Alanine Aminotransfer ALT/SGPT 42 U/L (16-61); Albumin, Serum 3.9 g/dL (3.2-5.0); Alkaline Phosphatase 62 U/L (45-117); Anion Gap 3 (5-15); BUN 19 mg/dL (7-18); Calcium,Total 8.5 mg/dL (8.5-10.1); Chloride 107 mmol/L (98-107); Cholesterol 122 mg/dL (200); Creatinine, Serum 1.19 mg/dL (0.70-1.30); EST Glomerular Filtration Rate 65 mL/min (>60); Est Glom Filt Rate - Afr Amer 78 mL/min (>60); Globulin 3.3 g/dL (2.2-4.2); Glucose 93 mg/dL (74-106); High Density Lipoprotein 37 mg/dL; PSA,Total- Diagnostic 9.25 ng/mL (0.0-4.0); Potassium 4.3 mmol/L (3.5-5.1); Protein, Total 7.2 g/dL (6.4-8.2); Sodium Level 139 mmol/L (136-145); Triglycerides 190 mg/dL; Very Low Density Lipoprotein 38 mg/dL (5-40)
== END ==
PROVIDERS: PCP Nurse Practitioner; Visit Provider Nurse Practitioner
DX: E78.5 Hyperlipidemia, unspecified (principal); I10 Essential (primary) hypertension; N40.0 Benign prostatic hyperplasia without lower urinary tract symptoms
CPT/HCPCS: 80053; 80061; 84153; 85025

== ENCOUNTER → 2020-04-01 22:24 | Outpatient (CLI) | payer OTHER, MEDICARE, SELFPAY ==
[2020-04-01 16:32] VITALS: BMI 25.2
[2020-04-01 22:42] LABS: Absolute Lymphocyte Count 2.57 X10^3/uL (0.83-4.51); Absolute Neutrophil Count 3.8 X10^3/uL (2.0-7.7); Basophil# 0.04 X10^3/uL; Basophil% 0.6 % (0-1); Eosinophil# 0.08 X10^3/uL; Eosinophils% 1.1 % (0-5); Hematocrit 37.4 % (40-54); Hemoglobin 12.8 g/dL (13.0-16.5); Lymphocyte # 2.57 X10^3/ul (4.0); Lymphocyte % 36.8 % (19-41); Mean Corp Hgb Conc 34.2 g/dL (32-36); Mean Corpuscular Hgb 31.9 pg (27.0-32.0); Mean Corpuscular Volume 93.3 fL (80-94); Mean Platelet Vol. 10.9 fl (6.2-12.0); Monocyte# 0.51 X10^3/uL; Monocyte% 7.3 % (0-10); NRBC Flagged by Analyzer 0 % (0-5); Neutrophil # 3.76 X10^3/uL (2.7-7.7); Neutrophil % 53.9 % (47-70); Platelet Count 197 K/mm3 (150-450); RBC Distribution Width CV 12.4 % (11.6-14.6); RBC Distribution Width SD 42.9 fl (35.1-43.9); Red Blood Count 4.01 M/mm3 (4.6-6.2)
[2020-04-01 22:58] LABS: ALB/GLOB Ratio 1.4 RATIO (0.9-2.4); AST(SGOT) 33 U/L (15-37); Alanine Aminotransfer ALT/SGPT 51 U/L (16-61); Albumin, Serum 4.2 g/dL (3.2-5.0); Alkaline Phosphatase 61 U/L (45-117); Anion Gap 6 (5-15); BUN 16 mg/dL (7-18); BUN/Creat Ratio 13.2 RATIO (10-20); Calcium,Total 9.1 mg/dL (8.5-10.1); Chloride 105 mmol/L (98-107); Cholesterol 141 mg/dL (200); Creatinine, Serum 1.21 mg/dL (0.70-1.30); EST Glomerular Filtration Rate 63 mL/min (>60); Est Glom Filt Rate - Afr Amer 77 mL/min (>60); Glucose 84 mg/dL (74-106); High Density Lipoprotein 45 mg/dL; PSA,Total - Annual Screen 7.97 ng/mL (0.00-4.00); Potassium 3.9 mmol/L (3.5-5.1); Protein, Total 7.2 g/dL (6.4-8.2); Sodium Level 138 mmol/L (136-145); Triglycerides 110 mg/dL; Very Low Density Lipoprotein 22 mg/dL (5-40)
== END ==
PROVIDERS: PCP Nurse Practitioner; Visit Provider Nurse Practitioner
DX: E78.5 Hyperlipidemia, unspecified (principal); I10 Essential (primary) hypertension; N40.0 Benign prostatic hyperplasia without lower urinary tract symptoms
CPT/HCPCS: 80053; 80061; 84153; 85025; G0103

== ENCOUNTER → 2020-04-29 21:44 | Outpatient (CLI) | payer OTHER, MEDICARE, SELFPAY ==
[2020-04-28 18:05] VITALS: BMI 25.2
[2020-04-29 22:02] LABS: Absolute Neutrophil Count 3.4 X10^3/uL (2.0-7.7); Basophil# 0.03 X10^3/uL; Basophil% 0.4 % (0-1); Eosinophil# 0.11 X10^3/uL; Eosinophils% 1.6 % (0-5); Hematocrit 40.7 % (40-54); Hemoglobin 13.3 g/dL (13.0-16.5); Lymphocyte % 41.1 % (19-41); Mean Corp Hgb Conc 32.7 g/dL (32-36); Mean Corpuscular Hgb 30.9 pg (27.0-32.0); Mean Corpuscular Volume 94.7 fL (80-94); Mean Platelet Vol. 11.4 fl (6.2-12.0); Monocyte# 0.47 X10^3/uL; Monocyte% 6.9 % (0-10); NRBC Flagged by Analyzer 0 % (0-5); Neutrophil # 3.39 X10^3/uL (2.7-7.7); Neutrophil % 49.7 % (47-70); Platelet Count 183 K/mm3 (150-450); RBC Distribution Width CV 12.3 % (11.6-14.6); RBC Distribution Width SD 43.1 fl (35.1-43.9); White Blood Count 6.8 K/mm3 (4.4-11.0)
[2020-04-29 22:39] LABS: PSA,Total- Diagnostic 9.11 ng/mL (0.0-4.0)
== END ==
PROVIDERS: PCP Nurse Practitioner; Visit Provider Nurse Practitioner
DX: D64.9 Anemia, unspecified (principal); N40.0 Benign prostatic hyperplasia without lower urinary tract symptoms; R97.20 Elevated prostate specific antigen [PSA]
CPT/HCPCS: 84153; 85025

== ENCOUNTER → 2020-06-07 22:38 | Outpatient (CLI) | payer OTHER, MEDICARE, SELFPAY ==
[2020-06-07 16:37] VITALS: BMI 25.7
[2020-06-07 22:52] LABS: Absolute Neutrophil Count 6.8 X10^3/uL (2.0-7.7); Basophil# 0.04 X10^3/uL; Basophil% 0.4 % (0-1); Eosinophil# 0.24 X10^3/uL; Eosinophils% 2.7 % (0-5); Hematocrit 30.2 % (40-54); Hemoglobin 9.6 g/dL (13.0-16.5); Lymphocyte % 13.5 % (19-41); Mean Corp Hgb Conc 31.8 g/dL (32-36); Mean Corpuscular Hgb 31.3 pg (27.0-32.0); Mean Corpuscular Volume 98.4 fL (80-94); Monocyte# 0.56 X10^3/uL; Monocyte% 6.3 % (0-10); NRBC Flagged by Analyzer 0 % (0-5); Neutrophil # 6.81 X10^3/uL (2.7-7.7); Neutrophil % 76.7 % (47-70); Platelet Count 294 K/mm3 (150-450); RBC Distribution Width CV 13.2 % (11.6-14.6); RBC Distribution Width SD 47.2 fl (35.1-43.9); Red Blood Count 3.07 M/mm3 (4.6-6.2); White Blood Count 8.9 K/mm3 (4.4-11.0)
[2020-06-07 23:14] LABS: ALB/GLOB Ratio 0.8 RATIO (0.9-2.4); AST(SGOT) 140 U/L (15-37); Alanine Aminotransfer ALT/SGPT 457 U/L (16-61); Albumin, Serum 2.9 g/dL (3.2-5.0); Alkaline Phosphatase 157 U/L (45-117); Anion Gap 7 (5-15); BUN 23 mg/dL (7-18); BUN/Creat Ratio 15.4 RATIO (10-20); Calcium,Total 8.6 mg/dL (8.5-10.1); Chloride 101 mmol/L (98-107); Creatinine, Serum 1.49 mg/dL (0.70-1.30); EST Glomerular Filtration Rate 50 mL/min (>60); Est Glom Filt Rate - Afr Amer 60 mL/min (>60); Globulin 3.6 g/dL (2.2-4.2); Glucose 111 mg/dL (74-106); Potassium 4.6 mmol/L (3.5-5.1); Protein, Total 6.5 g/dL (6.4-8.2); Sodium Level 133 mmol/L (136-145); Thyroid Stim Hormone (TSH) 2.52 uIU/mL (0.358-3.74)
[2020-06-10 16:15] LABS: SAR-COV-2 IGA ANTIBODY Negative (Negative)
== END ==
PROVIDERS: PCP Nurse Practitioner; Visit Provider Nurse Practitioner
DX: Z20.822 Contact with and (suspected) exposure to COVID-19 (principal); N40.0 Benign prostatic hyperplasia without lower urinary tract symptoms; R53.83 Other fatigue; R42 Dizziness and giddiness; R06.00 Dyspnea, unspecified; D64.9 Anemia, unspecified
CPT/HCPCS: 80053; 83970; 84153; 84443; 85025; 86769

== ENCOUNTER → 2020-06-23 21:19 | Outpatient (CLI) | payer OTHER, MEDICARE, SELFPAY ==
[2020-06-07 16:37] VITALS: BMI 25.7
== END ==
PROVIDERS: Visit Provider Nurse Practitioner
DX: R97.20 Elevated prostate specific antigen [PSA] (principal); N40.0 Benign prostatic hyperplasia without lower urinary tract symptoms
CPT/HCPCS: 84153

== ENCOUNTER → 2020-07-29 10:38 | Outpatient (CLI) | payer OTHER, MEDICARE, SELFPAY ==
[2020-06-07 16:37] VITALS: BMI 25.7
--- NOTE | 2020-07-29 | IMM_PTH ---
PATIENT: IMTIAZ POSADAS Jr. LOC: [facility] U#:[id number] AGE/SX: 74/M ROOM: RE07/29/[address]: Dr. Romel Jo MD : 1950 BED: DIS: SPEC #: [id number] RECD: 07/30/20 13:07 STATUS: ARLEN YAN #: [id number] DAVE: 07/29/20 00:[address]: Romel Jo DEPT: IMMUNOHISTOCHEMISTRY RECD BY: Clara Arguello Tissues: D - PROSTATE LEFT Procedures: P40 (add) 34BE12 (initial) PHYSICIAN & INSTITUTION [place] [address] SPECIMEN INFORMATION: Tissue Source: Clinical Info: Elevated PSA Specimen Number: [id number] CPT code: 58216, 47559 METHODOLOGY: Deparaffinized sections of prefer/formalin-fixed tissue or PAP/DQ stained slides are incubated with monoclonal/polyclonal antibodies/oligonucleotide probes. Localization is made via biotin free immunoperoxidase method. Appropriate controls are performed and reacted as expected. Results on target cell population are indicated in the following table: RESULTS: ANTIBODY / CLONE RESULT Block D P40 (BC28) negative 34BE12 (34BE12) negative These tests were developed and their performance characteristics determined by [facility]. They may not have been cleared or approved by the U.S. Food and Drug Administration. The FDA has determined that such clearance or approval is not necessary. The above immunohistochemical/dualISH markers are ordered and reviewed by the Pathologist. INTERPRETATION: D. Left prostate, apex, core biopsy: A minute focus of adenocarcinoma. SJ:angel 08/02/2020 Case has been reviewed in consultation with Dr. Zuñiga who concurs with the above diagnosis. IDC:AM
--- NOTE | 2020-07-29 08:00 | PROSBIL_PTH ---
PATIENT: IMTIAZ POSADAS Jr. LOC: [facility] U#:[id number] AGE/SX: 74/M ROOM: RE07/29/[address]: Dr. Romel Jo MD : 1950 BED: DIS: SPEC #: [id number] RECD: 07/29/20 10:31 STATUS: ARLEN YAN #: [id number] DAVE: 07/29/20 08:[address]: Romel Jo DEPT: SURGICAL PATHOLOGY RECD BY: Roque Cadet Tissues: A - PROSTATE RIGHT B - PROSTATE RIGHT C - PROSTATE RIGHT D - PROSTATE LEFT E - PROSTATE LEFT F - PROSTATE LEFT Procedures: PROSTATE BX HEADER OPERATION: Prostate biopsy PRE-OP DIAGNOSIS: Elevated PSA TISSUE SUBMITTED: A - Right apex, B - Right mid, C - Right base, D - Left apex, E - Left mid, F - Left base MICROSCOPIC DIAGNOSIS A. Right prostate, apex, core biopsy: Prostatic tissue, negative for malignancy. B. Right prostate, mid, core biopsy: Prostatic tissue, negative for malignancy. Focal mild chronic inflammation and minimal acute inflammation. C. Right prostate, base, core biopsy: Prostatic tissue, negative for malignancy. D. Left prostate, apex, core biopsy: A minute focus of adenocarcinoma. [place] grade: 3+3=6 Number of cores involved: 1/2 Proportion of tissue involved: <5% Perineural invasion: Not identified. Greatest tumor length: <0.1 cm See comment. E. Left prostate, mid, core biopsy: Prostatic tissue, negative for malignancy. F. Left prostate, base, core biopsy: Focal high-grade prostatic intraepithelial neoplasia (HGPIN). Focal mild chronic inflammation. SJ:angel 08/02/2020 COMMENT D. Immunohistochemistry ([id number]) supports the above diagnosis. Case has been reviewed in consultation with Dr. Zuñiga who concurs with the above diagnosis. IDC:AM MICROSCOPIC DESCRIPTION Slides are reviewed. GROSS DESCRIPTION A - Received is one container designated prostate, right apex. The specimen consists of two elongated fragments of light hussein-white soft tissue each measuring 1.1 cm in length and 0.1 cm in diameter. The specimen is totally submitted in one cassette. B - Received is one container designated prostate, right mid. The specimen consists of two elongated fragments of light hussein-white soft tissue measuring 1.1 and 1.5 cm in length and 0.1 cm in diameter. The specimen is totally submitted in one cassette. C - Received is one container designated prostate, right base. The specimen consists of two elongated fragments of light hussein-white soft tissue each measuring 1.4 cm in length and 0.1 cm in diameter. The specimen is totally submitted in one cassette. D - Received is one container designated prostate, left apex. The specimen consists of two elongated fragments of light hussein-white soft tissue measuring 1 and 1.3 cm in length and 0.1 cm in diameter. The specimen is totally submitted in one cassette. E - Received is one container designated prostate, left mid. The specimen consists of two elongated fragments of light hussein-white soft tissue each measuring 0.7 cm in length and 0.1 cm in diameter. The specimen is totally submitted in one cassette. F - Received is one container designated prostate, left base. The specimen consists of two elongated fragments of light hussein-white soft tissue each measuring 1 cm in length and 0.1 cm in diameter. The specimen is totally submitted in one cassette. / SJ:rg 07/29/20 TC:0 CPT: G0146
== END ==
PROVIDERS: Referring Provider Urology; Visit Provider Urology
DX: R97.20 Elevated prostate specific antigen [PSA] (principal)
CPT/HCPCS: 88305; 88341; 88342; G0416

== ENCOUNTER → 2020-11-11 21:38 | Outpatient (CLI) | payer OTHER, MEDICARE, SELFPAY ==
[2020-11-11 22:34] LABS: PSA,Total- Diagnostic 9.77 ng/mL (0.0-4.0)
== END ==
PROVIDERS: Visit Provider Nurse Practitioner
DX: R97.20 Elevated prostate specific antigen [PSA] (principal)
CPT/HCPCS: 84153

== ENCOUNTER 2021-04-19 22:32 | Outpatient (CLI) | payer MEDICARE, SELFPAY ==
[2021-04-19 22:56] LABS: Absolute Lymphocyte Count 2.52 X10^3/uL (0.83-4.51); Absolute Neutrophil Count 3.3 X10^3/uL (2.0-7.7); Basophil# 0.04 X10^3/uL; Basophil% 0.6 % (0-1); Eosinophils% 1.6 % (0-5); Hematocrit 40.2 % (40-54); Hemoglobin 13.4 g/dL (13.0-16.5); Lymphocyte # 2.52 X10^3/ul (0.83-4.51); Lymphocyte % 39.3 % (19-41); Mean Corp Hgb Conc 33.3 g/dL (32-36); Mean Corpuscular Hgb 31.3 pg (27.0-32.0); Mean Corpuscular Volume 93.9 fL (80-94); Monocyte# 0.47 X10^3/uL; Monocyte% 7.3 % (0-10); NRBC Flagged by Analyzer 0 % (0-5); Neutrophil # 3.28 X10^3/uL (2.7-7.7); Platelet Count 198 K/mm3 (150-450); RBC Distribution Width CV 12.9 % (11.6-14.6); RBC Distribution Width SD 44.5 fl (35.1-43.9); Red Blood Count 4.28 M/mm3 (4.6-6.2); White Blood Count 6.4 K/mm3 (4.4-11.0)
[2021-04-19 23:24] LABS: ALB/GLOB Ratio 1.2 RATIO (0.9-2.4); AST(SGOT) 51 U/L (15-37); Alanine Aminotransfer ALT/SGPT 96 U/L (16-61); Albumin, Serum 4.1 g/dL (3.2-5.0); Alkaline Phosphatase 79 U/L (45-117); Anion Gap 7 (5-15); BUN 16 mg/dL (7-18); BUN/Creat Ratio 15.2 RATIO (10-20); Calcium,Total 9.5 mg/dL (8.5-10.1); Chloride 103 mmol/L (98-107); Cholesterol 144 mg/dL (200); Creatinine, Serum 1.05 mg/dL (0.70-1.30); EST Glomerular Filtration Rate 74 mL/min (>60); Est Glom Filt Rate - Afr Amer 90 mL/min (>60); Globulin 3.3 g/dL (2.2-4.2); Glucose 89 mg/dL (74-106); High Density Lipoprotein 46 mg/dL; Potassium 4.1 mmol/L (3.5-5.1); Protein, Total 7.4 g/dL (6.4-8.2); Sodium Level 138 mmol/L (136-145); Triglycerides 98 mg/dL; Very Low Density Lipoprotein 20 mg/dL (5-40)
== END 2021-04-19 23:59 | disposition home or self-care (01) ==
PROVIDERS: Visit Provider Nurse Practitioner
DX: I10 Essential (primary) hypertension (principal); D64.9 Anemia, unspecified; E78.2 Mixed hyperlipidemia; N40.0 Benign prostatic hyperplasia without lower urinary tract symptoms
CPT/HCPCS: 80053; 80061; 84153; 85025

== ENCOUNTER 2021-05-24 10:16 | Outpatient (CLI) | payer MEDICARE, SELFPAY ==
--- NOTE | 2021-05-24 10:23 | MRI_ITS ---
STUDY: MR PELVIS WITH T WITHOUT CONTRAST REASON FOR EXAM: Male, 70 years old. ELEVATED PROSTATE SPECIFIC ANTIGEN TECHNIQUE: Standardized fat and water weighted pulse sequences were obtained in all 3 orthogonal planes, pre-and post contrast administration. 15ml DOTAEM contrast material was administered intravenously for the contrast portion of the examination. COMPARISON: None. FINDINGS: Normal urinary bladder. Normal visualized colon. There is a right inguinal hernia containing fat. There is no bowel involvement. There is no incarceration. There is no findings suggesting that this is causing a bowel obstruction. Bilateral testicular hydroceles Prostate gland: The anterior fibromuscular stroma and central zone appear intact but is diffusely heterogeneous. There is a 18 mm area of low T2 signal in the left transitional zone with irregular margins. Se 5 IM: 15. This does enhance. There is low ADC and increased DWI signal in the mass. Rectum is unremarkable. Levator ani muscle is not disrupted. The distal urethra is surrounded by the low T2 signal intensity muscle which is the external urethral sphincter as noted on the coronal images. The penile bulb is embraced by an intact inferomedial levator ani muscle. No areas of abnormal enhancement. Normal visualized neurovascular bundles. There is no pelvic fluid. There is no pelvic mass lesion or lymphadenopathy. MRI/Pelvis W/WO Contrast IMPRESSION: Left prostate mass. Assessment: PIRADS 4 - High. Clinically significant cancer is likely to be present. Bilateral testicular hydroceles Electronically Signed: Rolando Couch MD at 16:01 EDT Reading Location ID and State: [facility] / [place] , Service support ,
[2021-05-24 10:51] LABS: CREATININE FINGERSTICK 0.6 mg/dL (0.70-1.30); EGFR FINGERSTICK > 60.0000 mL/min (>60)
== END 2021-05-24 23:59 | disposition home or self-care (01) ==
PROVIDERS: PCP Nurse Practitioner; Referring Provider Urology; Visit Provider Urology
DX: R97.20 Elevated prostate specific antigen [PSA] (principal); Z85.46 Personal history of malignant neoplasm of prostate
CPT/HCPCS: 72197; A9575

== ENCOUNTER → 2021-06-27 | Outpatient (CLI) | payer MEDICARE, SELFPAY ==
--- NOTE | 2021-06-27 08:00 | PROSBIL_PTH ---
PATIENT: IMTIAZ POSADAS Jr. LOC: [facility] U#:[id number] AGE/SX: 70/M ROOM: RE06/27/[address]: Dr. Romel Jo MD : 1950 BED: DIS: 06/27/2021 SPEC #: [id number] RECD: 06/27/21 16:08 STATUS: ARLEN HEREDIA #: [id number] DAVE: 06/27/21 08:[address]: Romel Jo DEPT: SURGICAL PATHOLOGY RECD BY: Joya Mccord ENTERED: 06/28/21 08:16 SP TYPE: PROST BX CALISTA DR: Mickie Driver, VENEER SANDER-C Tissues: A - PROSTATE RIGHT B - PROSTATE RIGHT C - PROSTATE RIGHT Procedures: PROSTATE BX HEADER OPERATION: Prostate biopsy PRE-OP DIAGNOSIS: Elevated PSA R97.20 TISSUE SUBMITTED: A - Left apex, B - Left mid, C - Left base MICROSCOPIC DIAGNOSIS A. Left prostate, apex, core biopsy: Prostatic tissue, negative for malignancy. Focal mild acute and chronic inflammation. B. Left prostate, mid, core biopsy: Prostatic tissue, negative for malignancy. C. Left prostate, base, core biopsy: Prostatic tissue, negative for malignancy. Focal mild acute and chronic inflammation. SJ:rg 06/29/2021 COMMENT Please make reference to previous specimen ([id number]) left prostate, apex, core biopsy with diagnosis of ?a minute focus of adenocarcinoma? and left prostate, base, core biopsy with diagnosis of ?focal high-grade prostatic intraepithelial neoplasia.? MICROSCOPIC DESCRIPTION Slides are reviewed. GROSS DESCRIPTION A - Received is one container designated prostate, left apex. The specimen consists of two elongated fragments of light hussein-white soft tissue measuring 1 and 1.7 cm in length and 0.1 cm in diameter. The specimen is totally submitted in one cassette. B - Received is one container designated prostate, left mid. The specimen consists of three elongated fragments of light hussein-white soft tissue measuring 1 to 1.5 cm in length and 0.1 cm in diameter. The specimen is totally submitted in one cassette. C - Received is one container designated prostate, left base. The specimen consists of two elongated fragments of light hussein-white soft tissue measuring 1 and 1.5 cm in length and 0.1 cm in diameter. The specimen is totally submitted in one cassette. / SJ:rg 06/28/2021 TC:3 CPT: G0146
== END | disposition home or self-care (01) ==
LOC: LABSPEC 16:10
PROVIDERS: PCP Nurse Practitioner; Visit Provider Urology
DX: R97.20 Elevated prostate specific antigen [PSA] (principal)
CPT/HCPCS: 88305; G0416

== ENCOUNTER → 2022-01-06 | Outpatient (CLI) | payer MEDICARE, SELFPAY ==
[2022-01-06 22:23] LABS: PSA,Total- Diagnostic 6.58 ng/mL (0.0-4.0)
== END | disposition home or self-care (01) ==
PROVIDERS: PCP Nurse Practitioner; Visit Provider Nurse Practitioner
DX: N40.0 Benign prostatic hyperplasia without lower urinary tract symptoms (principal)
CPT/HCPCS: 84153

== ENCOUNTER → 2022-04-11 | Outpatient (CLI) | payer MEDICARE, SELFPAY ==
[2022-04-11 22:23] LABS: Absolute Lymphocyte Count 2.62 X10^3/uL (0.83-4.51); Basophil# 0.02 X10^3/uL; Basophil% 0.3 % (0-1); Eosinophil# 0.08 X10^3/uL; Eosinophils% 1.3 % (0-5); Hematocrit 40.3 % (40-54); Hemoglobin 13.5 g/dL (13.0-16.5); Lymphocyte # 2.62 X10^3/ul (0.83-4.51); Lymphocyte % 41.9 % (19-41); Mean Corp Hgb Conc 33.5 g/dL (32-36); Mean Corpuscular Hgb 31.5 pg (27.0-32.0); Mean Corpuscular Volume 94.2 fL (80-94); Mean Platelet Vol. 11.7 fl (6.2-12.0); Monocyte# 0.53 X10^3/uL; Monocyte% 8.5 % (0-10); NRBC Flagged by Analyzer 0 % (0-5); Neutrophil # 2.99 X10^3/uL (2.7-7.7); Neutrophil % 47.8 % (47-70); Platelet Count 181 K/mm3 (150-450); RBC Distribution Width CV 12.3 % (11.6-14.6); RBC Distribution Width SD 42.7 fl (35.1-43.9); Red Blood Count 4.28 M/mm3 (4.6-6.2); White Blood Count 6.3 K/mm3 (4.4-11.0)
[2022-04-11 22:45] LABS: ALB/GLOB Ratio 1.2 RATIO (0.9-2.4); AST(SGOT) 28 U/L (15-37); Alanine Aminotransfer ALT/SGPT 47 U/L (16-61); Alkaline Phosphatase 78 U/L (45-117); Anion Gap 6 (5-15); BUN 17 mg/dL (7-18); BUN/Creat Ratio 13.4 RATIO (10-20); Calcium,Total 8.9 mg/dL (8.5-10.1); Chloride 103 mmol/L (98-107); Cholesterol 108 mg/dL (200); Creatinine, Serum 1.27 mg/dL (0.70-1.30); EST Glomerular Filtration Rate 60 mL/min (>60); Est Glom Filt Rate - Afr Amer 72 mL/min (>60); Globulin 3.4 g/dL (2.2-4.2); Glucose 112 mg/dL (74-106); High Density Lipoprotein 30 mg/dL; PSA,Total - Annual Screen 7.88 ng/mL (0.00-4.00); Potassium 3.9 mmol/L (3.5-5.1); Protein, Total 7.4 g/dL (6.4-8.2); Sodium Level 138 mmol/L (136-145); Triglycerides 183 mg/dL; Very Low Density Lipoprotein 37 mg/dL (5-40)
== END | disposition home or self-care (01) ==
PROVIDERS: PCP Nurse Practitioner; Visit Provider Nurse Practitioner
DX: I10 Essential (primary) hypertension (principal); D64.9 Anemia, unspecified; E78.2 Mixed hyperlipidemia; N40.0 Benign prostatic hyperplasia without lower urinary tract symptoms
CPT/HCPCS: 80053; 80061; 84153; 85025; G0103

== ENCOUNTER → 2022-12-19 | Outpatient (CLI) | payer MEDICARE, SELFPAY ==
[2022-12-19 23:02] LABS: PSA,Total- Diagnostic 4.95 ng/mL (0.0-4.0)
[2022-12-22 13:07] LABS: PSA, Free 0.75 ng/mL; PSA, Free % 18.3 % (.); PSA, Total 4.1 ng/mL (0.0-4.0)
== END | disposition home or self-care (01) ==
PROVIDERS: PCP Nurse Practitioner; Visit Provider Nurse Practitioner
DX: N40.0 Benign prostatic hyperplasia without lower urinary tract symptoms (principal)
CPT/HCPCS: 84153

== ENCOUNTER → 2023-05-11 | Outpatient (CLI) | payer MEDICARE, SELFPAY ==
--- OUTSIDE RECORDS SUMMARY | 2023-05-11 22:24 | XMS RPT_ITS | CCD ---
Author Name Unknown Address [address] [place] [address] Organization [facility] Care Team Providers Care Director Of Digital Platforms Name Role Phone Nicole Campo Ruthann Unavailable Unavailable SilaEriny Ruthann Unavailable Unavailable Erin Campoy Ruthann Unavailable Unavailable FREE, TEXT ENTRY Unavailable Unavailable PADILLA FENTON Unavailable Unavaila PADILLA Magana Unavailable Unavaila PADILLA Magana MD Attending Unavail able [facility] Primary Care Unavailable PADILLA FENTON MD Attending Unavail able [facility] Unavailable TRINH APODACA MD Attending Unavailable [facility] Unavailable PADILLA FENTON MD Attending Unavail able [facility] Primary Care Unavailable Allergies Allergy Classification Reported Allergen(s) Allergy Type Date of Onset Reaction(s) Facility (1 source) Penicillins; Translations: [PENICILLINS] Propensity to adverse reactions to drug (disorder) 0 [facility] Other [place] Rep[facility] Problems Active Problems Problem Classification Problem Date Documented Date Episodic/Chronic Cardiac dysrhythmias (1 source) Unspecified atrial flutter; Translations: [Unspecified atrial flutter] Onset: 11-17-2016 Chronic Cardiac dysrhythmias (1 source) Cardiac dysrhythmias Onset: 01-16-2017 Coronary atherosclerosis and other heart disease (1 source) Coronary atherosclerosis and other heart disease Onset: 01-16-2017 Essential hypertension (1 source) Essential hypertension Onset: 01-16-2017 Headache, including migraine (1 source) Headache, including migraine Onset: 01-16-2017 Unclassified (1 source) Ataxia, unspecified / R27.0(ICD-10) Onset: 01-16-2017 Unclassified (1 source) Obstructive hydrocephalus / G91.1(ICD-10) Onset: 01-16-2017 Unclassified (1 source) Dysphagia, oropharyngeal phase / R13.12(ICD-10) Onset: 01-16-2017 Unclassified (1 source) Unspecified atrial flutter / I48.92(ICD-10) Onset: 01-16-2017 Unclassified (2 sources) Cereb infrc due to unsp occls or stenos of right cereblr art / I63.541(ICD-10) Onset: 01-16-2017 Unclassified (1 source) Compression of brain / G93.5(ICD-10) Onset: 01-16-2017 Unclassified (1 source) Cerebral edema / G93.6(ICD-10) Onset: 01-16-2017 Unclassified (1 source) Athscl heart disease of [place] coronary artery w/o ang pctrs / I25.10(ICD-10) Onset: 01-16-2017 Unclassified (1 source) 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) Onset: 01-16-2017 Unclassified (1 source) Nausea with vomiting, unspecified / R11.2(ICD-10) Onset: 01-16-2017 Unclassified (1 source) Unspecified ptosis of right eyelid / H02.401(ICD-10) Onset: 01-16-2017 Unclassified (1 source) Other forms of nystagmus / H55.09(ICD-10) Onset: 01-16-2017 Unclassified (1 source) Encephalopathy, unspecified / G93.40(ICD-10) Onset: 01-16-2017 Unclassified (1 source) NIHSS score 2 / R29.702(ICD-10) Onset: 01-16-2017 Unclassified (1 source) Retention of urine, unspecified / R33.9(ICD-10) Onset: 01-16-2017 Unclassified (1 source) Personal history of nicotine dependence / Z87.891(ICD-10) Onset: 01-16-2017 Unclassified (1 source) FPC (current) use of aspirin / Z79.82(ICD-10) Onset: 01-16-2017 Unclassified (1 source) Presence of aortocoronary bypass graft / Z95.1(ICD-10) Onset: 01-16-2017 Unclassified (1 source) Presence of coronary angioplasty implant and graft / Z95.5(ICD-10) Onset: 01-16-2017 Unclassified (1 source) Allergy status to penicillin / Z88.0(ICD-10) Onset: 01-16-2017 Unclassified (1 source) buttermilk drier operator (current) use of anticoagulants / Z79.01(ICD-10) Onset: 01-16-2017 Past or Other Problems Problem Classification Problem Date Documented Da te Episodic/Chronic Unclassified (1 source) Cereb infrc due to unsp occls or stenos of right cereblr art; Translations: [Cereb infrc due to unsp occls or stenos of right cereblr art] Onset: 01-11-2017 Results Test Name Value Interpretation Reference Range Facil ity Encounters Encounter Date Encounter Type Care Provider Facility Start: 12-11-2022 End: 12-12-2022 ambulatory PADILLA FENTON MD Facility:[facility] Start: 06-12-2022 End: 06-13-2022 ambulatory PADILLA FENTON MD Facility:[facility] Start: 04-05-2022 End: 04-05-2022 Emergency department patient visit TRINH APODACA MD Facility:[id number] Start: 01-11-2017 End: 01-16-2017 Evaluation and management of inpatient Nicole Ruthann Annea Facility:[facility] Start: 11-17-2016 End: 11-17-2016 [facility] PADILLA FENTON [facility] Procedures Date Procedure Procedure Detail Performing Clinician Start: 01-13-2017 Introduction of Nutr itional Substance into Upper GI, Via Natural or Artificial Opening Nicole Sila Start: 01-12-2017 Insertion of Infusio n Device into Right Subclavian Vein, Percutaneous Approach Nicole Sila Payers Date Payer Category Payer Medicare 2008 Unknown 2008 Unknown [id number] 1950 Unknown [id number] 1950 Unknown [id number] 1950 Unknown [id number] 1950 Unknown [id number] Private Health Insurance [id number] Clinical Note 04-05-2022 Note Date & Type Note Facility 04-05-2022 Note Covid-19 Infection Covid-19 infection is caused by a new type of coronavirus. Most coronaviruses cause mild illness (several cause a form of the common cold), but this particular type seems to cause a more severe illness in a larger portion of the population. And because it is a new type, no one already has an immunity to it, like many of us do to the types that cause the common cold. For that reason, it is thought that many, many people will become sick with this new virus and currently about 10% of those people are becoming very sick. SYMPTOMS Covid-19 infection causes: ? Fever. ? Muscle aches and pains. ? Joint aches and pains. ? Runny nose. ? Cough. ? Shortness of Breath. ? Diarrhea. ? Nausea and/or Vomiting. ? Loss of taste or smell. ? Headache These symptoms do not respond to antibiotics because the infection is not caused by bacteria. * If you have chest pain, severe headache, nausea/vomiting, shortness of breath or other potentially life-threatening problems, go to the nearest emergency department or call 911. * HOME CARE INSTRUCTIONS Instructions for patients discharged home with confirmed COVID19 and their caregivers Limit your contact with others: 1. Stay home except to get medical care. You should restrict activities outside your home, except for getting medical care. Do not go to work, school, or public areas. Avoid using public transportation, ride-sharing, or taxis. 2. Separate yourself from other people in your home. As much as possible, you should stay in a specific room and away from other people in your home. Also, you should use a separate bathroom, if available. Visitors who do not have an essential need to be in the home should not visit. 3. Restrict contact with pets and other animals. When possible, have another member of your household care for your animals while you are sick. Avoid petting, snuggling, being kissed or licked, and sharing food. If you must care for your pet or be around animals while you are sick, wash your hands before and after you interact with pets and wear a facemask. 4. Make sure that shared spaces in the home have good air flow, such as by an air conditioner or an opened window, weather permitting. Medical care: 1. Monitor your symptoms. Seek prompt medical attention if your illness is worsening (e.g., difficulty breathing?). Before seeking care, call your healthcare provider and tell them that you have, or are being evaluated for, COVID-19. Put on a facemask before you enter the facility. Ask your healthcare provider to call the local or state health department. 2. If you have a medical emergency and need to call 911, notify the dispatch personnel that you have, or are being evaluated for COVID-19. If possible, put on a facemask before emergency medical services arrive. Strictly follow personal hygiene procedures: 1. Wear a facemask when you are around other people (in the same room) or pets and before you enter a healthcare provider?s office. If you are not able to wear a facemask (for example, because it causes trouble breathing), then people who live with you should not stay in the same room with you, or they should wear a facemask if they enter your room. 2. Cover your coughs and sneezes. Cover your mouth and nose with a tissue when you cough or sneeze. Throw used tissues in a lined trash can. Immediately wash your hands with soap and water for at least 20 seconds or, if soap and water are not available, clean your hands with an alcohol-based hand music engineer that contains at least 60% alcohol. 3. Clean your hands often. Wash your hands often with soap and water for at least 20 seconds, especially after blowing your nose, coughing, or sneezing; going to the bathroom; and before eating or preparing food. If soap and water are not readily available, use an alcohol-based hand music engineer with at least 60% alcohol, covering all surfaces of your hands and rubbing them together until they feel dry. Soap and water are the best option if hands are visibly dirty. Avoid touching your eyes, nose, and mouth with unwashed hands. Strictly follow household hygiene procedures: 1. Avoid sharing personal household items such as dishes, drinking glasses, cups, eating utensils, towels, or bedding with other people or pets in your home. After using these items, they should be washed thoroughly with soap and water 2. Clean all ?high-touch? surfaces every day, including counters, tabletops, doorknobs, bathroom fixtures, toilets, phones, keyboards, tablets, and bedside tables. Also, clean any surfaces that may have blood, stool, or body fluids on them. Use a household cleaning spray or wipe, according to the label instructions 3. Wash laundry thoroughly. Immediately remove and wash clothes or bedding that have blood, stool, or body fluids on them. Read and follow directions on labels of laundry or clothing items and detergent. In general, using a (more content not included)... [facility] Clinical Note 04-05-2022 Note Date & Type Note Facility 04-05-2022 Note ED Nursing Discharge Summary Entered On: 04/05/2022 11:59 EST Performed On: 04/05/2022 11:50 EST by Lynn Freitas RN [facility] [id number] ED IV's : No IV ED IV Site Assessment : No IV ED Vitals Completed : Yes ED Final Assessment Completed : Yes ED Progress Note Completed : Yes Complete all PRN/Pain response forms? : N/A ED Disassociate Patient from Monitor : Yes Updated Depart Time : Yes ED Belongings sent w patient [id number] : Not applicable Lynn Freitas RN - 04/05/2022 11:58 EST Education Instructions given to : Patient TeachBack Methodology : Explanation, Printed Material Barriers to Learning : None evident Lynn Freitas RN - 04/05/2022 11:58 EST ED Assistance Summary Assistance Given? : No Lynn Freitas RN - 04/05/2022 11:[address] [facility] Summary Purpose Family History No Family History Records FoundNo Family History Records FoundNo Family History Records FoundNo Family History Records Found Advance Directives No Advanced Directives Records FoundNo Advanced Directives Records FoundNo Advanced Directives Records FoundNo Advanced Directives Records Found Additional Source Comments (unrecognized sect ion and content) No Status Records FoundNo Status Records FoundNo Status Records FoundNo Status Records Found INFORMATION SOURCE (unrecogn ized section and content) DATE CREATED AUTHOR AUTHOR'S ORGANIZ ATION 08/22/2017 [facility] DATE CREATED AUTHOR AUTHOR'S ORGANIZ ATION 08/30/2017 [facility] DATE CREATED AUTHOR AUTHOR'S ORGANIZ ATION 12/26/2022 [facility] FOR RECORDS PERTAINING TO PATIENTS WHO ARE OR HAVE BEEN ENROLLED IN A CHEMICAL DEPENDENCY/SUBSTANCEABUSE PROGRAM, SOME INFORMATION MAY BE OMITTED. This clinical summary was aggregated from multiple sources. Caution should be exercised in using it in the provision of clinical care. This summary normalizes information from multiple sources, and as a consequence, information in this document may materially change the coding, format and clinical context of patient data. In addition, data may be omitted in some cases. CLINICAL DECISIONS SHOULD BE BASED ON THE PRIMARY CLINICAL RECORDS. [employer] provides no warranty or guarantee of the accuracy or completeness of information in this document.
[2023-05-11 22:34] LABS: Absolute Lymphocyte Count 2.52 X10^3/uL (0.83-4.51); Absolute Neutrophil Count 4.5 X10^3/uL (2.0-7.7); Basophil# 0.04 X10^3/uL; Basophil% 0.5 % (0-1); Eosinophil# 0.05 X10^3/uL; Eosinophils% 0.7 % (0-5); Hematocrit 39.9 % (40-54); Hemoglobin 13.3 g/dL (13.0-16.5); Lymphocyte # 2.52 X10^3/ul (0.83-4.51); Lymphocyte % 33.4 % (19-41); Mean Corp Hgb Conc 33.3 g/dL (32-36); Mean Corpuscular Hgb 31.4 pg (27.0-32.0); Mean Corpuscular Volume 94.1 fL (80-94); Mean Platelet Vol. 10.8 fl (6.2-12.0); Monocyte# 0.47 X10^3/uL; Monocyte% 6.2 % (0-10); NRBC Flagged by Analyzer 0 % (0-5); Neutrophil # 4.45 X10^3/uL (2.7-7.7); Neutrophil % 59.1 % (47-70); Platelet Count 201 K/mm3 (150-450); RBC Distribution Width CV 13.1 % (11.6-14.6); RBC Distribution Width SD 44.9 fl (35.1-43.9); Red Blood Count 4.24 M/mm3 (4.6-6.2); White Blood Count 7.5 K/mm3 (4.4-11.0)
[2023-05-11 22:51] LABS: ALB/GLOB Ratio 1.2 RATIO (0.9-2.4); AST(SGOT) 27 U/L (15-37); Alanine Aminotransfer ALT/SGPT 50 U/L (16-61); Alkaline Phosphatase 70 U/L (45-117); Anion Gap 6 (5-15); BUN 20 mg/dL (7-18); BUN/Creat Ratio 14.2 RATIO (10-20); Calcium,Total 8.8 mg/dL (8.5-10.1); Chloride 104 mmol/L (98-107); Cholesterol 114 mg/dL (200); Creatinine, Serum 1.41 mg/dL (0.70-1.30); EST Glomerular Filtration Rate 53 mL/min (>60); Est Glom Filt Rate - Afr Amer 64 mL/min (>60); Globulin 3.2 g/dL (2.2-4.2); Glucose 102 mg/dL (74-106); High Density Lipoprotein 42 mg/dL; PSA,Total - Annual Screen 4.47 ng/mL (0.00-4.00); Potassium 3.9 mmol/L (3.5-5.1); Protein, Total 7.2 g/dL (6.4-8.2); Sodium Level 138 mmol/L (136-145); Triglycerides 102 mg/dL; Very Low Density Lipoprotein 20 mg/dL (5-40)
== END | disposition home or self-care (01) ==
PROVIDERS: PCP Nurse Practitioner; Visit Provider Nurse Practitioner
DX: D64.9 Anemia, unspecified (principal); E78.5 Hyperlipidemia, unspecified; I10 Essential (primary) hypertension; R74.8 Abnormal levels of other serum enzymes; R97.20 Elevated prostate specific antigen [PSA]; N40.0 Benign prostatic hyperplasia without lower urinary tract symptoms
CPT/HCPCS: 80053; 80061; 84153; 85025; G0103

== ENCOUNTER → 2023-10-01 | Outpatient (CLI) | payer MEDICARE, SELFPAY ==
[2023-10-01 22:36] LABS: PSA,Total- Diagnostic 3.37 ng/mL (0.0-4.0)
== END | disposition home or self-care (01) ==
PROVIDERS: PCP Nurse Practitioner; Referring Provider Nurse Practitioner; Visit Provider Nurse Practitioner
DX: N40.0 Benign prostatic hyperplasia without lower urinary tract symptoms (principal)
CPT/HCPCS: 84153

== ENCOUNTER → 2024-04-18 | Outpatient (CLI) | payer MEDICARE, SELFPAY ==
[2024-04-18 23:14] LABS: Absolute Lymphocyte Count 2.89 X10^3/uL (0.83-4.51); Absolute Neutrophil Count 3.6 X10^3/uL (2.0-7.7); Basophil# 0.04 X10^3/uL; Basophil% 0.6 % (0-1); Eosinophil# 0.12 X10^3/uL; Eosinophils% 1.7 % (0-5); Hemoglobin 12.9 g/dL (13.0-16.5); Lymphocyte # 2.89 X10^3/ul (0.83-4.51); Lymphocyte % 40.4 % (19-41); Mean Corp Hgb Conc 33.1 g/dL (32-36); Mean Corpuscular Hgb 31.6 pg (27.0-32.0); Mean Corpuscular Volume 95.6 fL (80-94); Mean Platelet Vol. 11.4 fl (6.2-12.0); Monocyte# 0.54 X10^3/uL; Monocyte% 7.5 % (0-10); NRBC Flagged by Analyzer 0 % (0-5); Neutrophil # 3.56 X10^3/uL (2.7-7.7); Neutrophil % 49.7 % (47-70); Platelet Count 200 K/mm3 (150-450); RBC Distribution Width CV 13.1 % (11.6-14.6); RBC Distribution Width SD 46.5 fl (35.1-43.9); Red Blood Count 4.08 M/mm3 (4.6-6.2); White Blood Count 7.2 K/mm3 (4.4-11.0)
[2024-04-18 23:29] LABS: ALB/GLOB Ratio 1.1 RATIO (0.9-2.4); AST(SGOT) 19 U/L (15-37); Alanine Aminotransfer ALT/SGPT 37 U/L (16-61); Albumin, Serum 3.8 g/dL (3.2-5.0); Alkaline Phosphatase 57 U/L (45-117); Anion Gap 5 (5-15); BUN 17 mg/dL (7-18); Calcium,Total 9.9 mg/dL (8.5-10.1); Chloride 105 mmol/L (98-107); Cholesterol 111 mg/dL (200); Creatinine, Serum 1.55 mg/dL (0.70-1.30); EST Glomerular Filtration Rate 47 mL/min (>60); Est Glom Filt Rate - Afr Amer 57 mL/min (>60); Globulin 3.4 g/dL (2.2-4.2); Glucose 98 mg/dL (74-106); High Density Lipoprotein 43 mg/dL; Potassium 3.8 mmol/L (3.5-5.1); Protein, Total 7.2 g/dL (6.4-8.2); Sodium Level 140 mmol/L (136-145); Triglycerides 132 mg/dL; Very Low Density Lipoprotein 26 mg/dL (5-40)
== END | disposition home or self-care (01) ==
PROVIDERS: PCP Nurse Practitioner; Referring Provider Nurse Practitioner; Visit Provider Nurse Practitioner
DX: D64.9 Anemia, unspecified (principal); E78.2 Mixed hyperlipidemia; I10 Essential (primary) hypertension
CPT/HCPCS: 80053; 80061; 85025

== ENCOUNTER → 2024-10-08 | Outpatient (CLI) | payer MEDICARE, SELFPAY ==
--- OUTSIDE RECORDS SUMMARY | 2024-10-08 22:05 | XMS RPT_ITS | CCD ---
Author Organization [facility] Care Team Providers Care Street Photographer Name Role Phone Nicole Campo Ruthann Unavailable Unavailable SilaEriny Ruthann Unavailable Unavailable Erin Campoy Ruthann Unavailable Unavailable FREE, TEXT ENTRY Unavailable Unavailable PADILLA COVARRUBIAS K Unavailable Unavaila ble SATISH PADILLA K Unavailable Unavaila ble Villa INDUSTRIAL WASTE TREATMENT TECHNICIAN, Alfonso Primary Care Unavailable Baptiste INDUSTRIAL WASTE TREATMENT TECHNICIAN, Alfonso Attending Unavailable Baptiste INDUSTRIAL WASTE TREATMENT TECHNICIAN, Alfonso Primary Care Unavailable Baptiste INDUSTRIAL WASTE TREATMENT TECHNICIAN, Alfonso Referring Unavailable Baptiste INDUSTRIAL WASTE TREATMENT TECHNICIAN, Alfonso Attending Unavailable Baptiste INDUSTRIAL WASTE TREATMENT TECHNICIAN, Alfonso Attending Unavailable Baptiste INDUSTRIAL WASTE TREATMENT TECHNICIAN, Alfonso Primary Care Unavailable Baptiste INDUSTRIAL WASTE TREATMENT TECHNICIAN, Alfonso Referring Unavailable Baptiste INDUSTRIAL WASTE TREATMENT TECHNICIAN-C, Alfonso Primary Care Provider Baptiste INDUSTRIAL WASTE TREATMENT TECHNICIAN-C, Alfonso Attending Provider [phone] Baptiste INDUSTRIAL WASTE TREATMENT TECHNICIAN-C, Alfonso Referring Provider BAPTISTE, ALFONSO Primary Care Unavailable PADILLA COVARRUBIAS MD Attending Unavail able BAPTISTE, ALFONSO Primary Care Unavailable BAPTISTE, ALFONSO Primary Care Unavailable PADILLA COVARRUBIAS MD Attending Unavail able Allergies Allergy Classification Reported Allergen(s) Allergy Type Date of Onset Reaction(s) Facility (8 sources) Penicillins; Translations: [PENICILLINS] Propensity to adverse reactions to drug (disorder) 0 RASH [facility] Other [place] [facility] (6 sources) Llmgjkv-Gtm-Sks Reductase Inhibitor; Translations: [Ebgpfgy-Bdr-Bsb Reductase Inhibitor] Allergy to substance [facility] Medic[facility] Current Medications Medication Drug Class(es) Dates Sig (Normalized) Sig (Original) amLODIPine 10 mg oral tablet (20 sources) Dihydropyridine Calcium Channel Tavon Start: 03-20-2018 End: 04-18-2024 take 1 tablet by mouth once daily Amlodipine 10 mg tablet Active 10 mg PO DAILY April 18, 2024 3:16pm ascorbic acid 500 mg oral capsule (6 sources) Vitamin C Start: 03-20-2018 Ascorbic Acid (Vitamin C) 500 mg capsule Active mg PO March 20, 2018 12:00am Start: 03-20-2018 Ascorbic Acid (Vitamin C) Active MG PO March 20, 2018 1:00am aspirin 81 mg delayed release oral tablet (12 sources) Platelet Aggregation Inhibitor, Nonsteroidal Anti-inflammatory Drug Start: 03-14-2019 take 1 tablet by mouth once daily Aspirin 81 mg tablet,delayed release (DR/EC) Active 81 mg PO DAILY March 14, 2019 12:00am Start: 03-20-2018 End: 03-14-2019 take 1 tablet by mouth once daily Aspirin 325 mg tablet Discontinued 325 mg PO DAILY March 20, 2018 12:00am March 14, 2019 4:35pm atorvastatin 40 mg oral tablet (20 sources) HMG-CoA Reductase Inhibitor Start: 03-20-2018 End: 04-18-2024 take 1 tablet by mouth once daily Atorvastatin 40 mg tablet Active 40 mg PO DAILY April 18, 2024 3:16pm cholecalciferol 0.025 mg oral capsule (6 sources) Vitamin D Start: 03-20-2018 take 1 capsule by mouth once daily Cholecalciferol (Vitamin D3) 1,000 unit capsule Active 1000 U PO DAILY March 20, 2018 12:00am ferrous sulfate 325 mg oral tablet (6 sources) Start: 03-14-2019 take 1 tablet by mouth once daily Ferrous Sulfate 325 mg (65 mg iron) tablet Active 325 mg PO DAILY March 14, 2019 12:00am finasteride 5 mg oral tablet (11 sources) 5-alpha Reductase Inhibitor Start: 04-11-2022 End: 04-18-2024 take 1 tablet by mouth once daily Finasteride 5 mg tablet Active 5 mg PO DAILY April 18, 2024 3:16pm lisinopril 10 mg oral tablet (20 sources) Angiotensin Converting Enzyme Inhibitor Start: 03-20-2018 End: 04-18-2024 take 1 tablet by mouth once daily Lisinopril 10 mg tablet Active 10 mg PO DAILY April 18, 2024 3:16pm metoprolol tartrate 25 mg oral tablet (20 sources) beta-Adrenergic Tavon Start: 03-20-2018 End: 04-18-2024 take 1 tablet by mouth twice daily Metoprolol Tartrate 25 mg tablet Active 25 mg PO TWICE A DAY 180 April 18, 2024 3:16pm tamsulosin hydrochloride 0.4 mg oral capsule (20 sources) alpha-Adrenergic Tavon Start: 03-20-2018 End: 04-18-2024 take 2 capsules by mouth once daily Tamsulosin 0.4 mg capsule Active 0.8 mg PO DAILY 180 April 18, 2024 3:16pm Start: 03-20-2018 End: 05-11-2023 take 0.8 mg by mouth once daily Tamsulosin Active 0.8 MG PO DAILY 180 May 11, 2023 3:17pm ubidecarenone 100 mg oral capsule (6 sources) Start: 03-20-2018 Coenzyme Q10 (Coq-10) 100 mg capsule Active 100 mg PO DAILY March 20, 2018 12:00am Vitamin B Complex (5 sources) Start: 03-20-2018 take 1 tablet by mouth once daily Vitamin B Complex Active 1 TABLET PO DAILY March 20, 2018 6:22pm Start: 03-20-2018 take 1 tablet by mouth once da dale Vitamin B Complex Active 1 TABLET PO DAILY March 20, 2018 1:00am Start: 03-20-2018 take 1 tablet by mouth once da dale Vitamin B Complex Active 1 TABLET PO DAILY March 20, 2018 12:00am Vitamin B Complex tablet (1 source) Start: 03-20-2018 Vitamin B Comp romel tablet Active 1 {tbl} PO DAILY March 20, 2018 12:00am Vitamin E (6 sources) Start: 03-20-2018 VITAMIN E Acti ve 0 .ROUTE .COMPLEX March 20, 2018 6:23pm 1 PO DAILY ; Start: 03-20-2018 VITAMIN E Acti ve 0 .ROUTE .COMPLEX March 20, 2018 1:00am 1 PO DAILY ; Start: 03-20-2018 VITAMIN E Acti ve 0 .ROUTE .COMPLEX March 20, 2018 12:00am 1 PO DAILY ; Completed/Discontinued Medications Medication Drug Class(es) Dates Sig (Normalized) Sig (Original) cephalexin 500 mg oral capsule (6 sources) Cephalosporin Antibacterial Start: 03-14-2019 End: 03-24-2019 take 1 capsule by mouth twice daily Cephalexin 500 mg capsule Discontinued 500 mg PO TWICE A DAY 15 12March 14, 2019 12:00am March 23, 2019 12:00am March 24, 2019 12:07am ciprofloxacin 500 mg oral tablet (7 sources) Quinolone Antimicrobial Start: 05-18-2023 End: 04-18-2024 take 1 tablet by mouth twice daily Ciprofloxacin Hcl (Cipro) 500 mg tablet Discontinued 500 mg PO TWICE A DAY 60 May 17, 2023 11:00pm April 18, 2024 3:15pm Start: 04-30-2020 End: 05-04-2020 take 1 tablet by mouth twice daily Ciprofloxacin Hcl (Cipro) 500 mg tablet Discontinued 500 mg PO TWICE A DAY 60 April 30, 2020 12:00am May 04, 2020 4:43pm gabapentin 300 mg oral capsule (20 sources) Anti-epileptic Agent Start: 03-14-2019 End: 04-18-2024 take 1 capsule by mouth three times daily Gabapentin 300 mg capsule Discontinued 300 mg PO THREE TIMES A DAY 270 May 11, 2023 2:17pm April 18, 2024 3:15pm meclizine hydrochloride 12.5 mg oral tablet (6 sources) Antiemetic Start: 03-20-2018 End: 03-14-2019 take 1 tablet by mouth three times daily as needed Meclizine 12.5 mg tablet Discontinued 12.5 mg PO THREE TIMES A DAY as needed March 20, 2018 12:00am March 14, 2019 4:36pm 24 hr niacin 500 mg extended release oral tablet (6 sources) Nicotinic Acid Start: 03-20-2018 End: 03-14-2019 take 1 tablet by mouth every twenty-four hours at bedtime Niacin (Niaspan Extended-Release) 500 mg tablet extended release 24 hr Discontinued 500 mg PO AT BEDTIME March 20, 2018 12:00am March 14, 2019 4:36pm rivaroxaban 20 mg oral tablet (20 sources) Factor Xa Inhibitor Start: 03-20-2018 End: 04-18-2024 take 1 tablet by mouth once daily Rivaroxaban (Xarelto) 20 mg tablet Discontinued 20 mg PO DAILY July 12, 2021 1:40pm April 11, 2022 4:56pm sulfamethoxazole 800 mg / trimethoprim 160 mg oral tablet (6 sources) Dihydrofolate Reductase Inhibitor Antibacterial, Sulfonamide Antimicrobial Start: 05-04-2020 End: 06-07-2020 Sulfamethoxazole- Trimethoprim 800-160 mg tablet Discontinued 1 {tbl} PO TWICE A DAY 60 May 04, 2020 12:00am June 07, 2020 4:02pm Start: 05-04-2020 End: 06-07-2020 take 1 tablet by mouth twice daily Sulfamethoxazole-Trimethoprim Discontinu ed 1 TABLET PO TWICE A DAY 60 May 04, 2020 1:00am June 07, 2020 5:02pm traZODone hydrochloride 50 mg oral tablet (6 sources) Serotonin Reuptake Inhibitor Start: 03-20-2018 End: 03-22-2018 take 1 tablet by mouth once daily Trazodone 50 mg tablet Discontinued 50 mg PO DAILY March 20, 2018 12:00am March 22, 2018 5:04pm Problems Active Problems Problem Classification Problem Date Documented Date Episodic/Chronic Cardiac dysrhythmias (1 source) Unspecified atrial flutter; Translations: [Unspecified atrial flutter] Onset: 11-17-2016 Chronic Cardiac dysrhythmias (1 source) Cardiac dysrhythmias Onset: 01-16-2017 Conditions associated with dizziness or vertigo (6 sources) Dizziness; Translations: [Dizziness and giddiness] 06-07-2020 Episodic Coronary atherosclerosis and other heart disease (1 source) Coronary atherosclerosis and other heart disease Onset: 01-16-2017 Deficiency and other anemia (6 sources) Anemia; Translations: [Anemia, unspecified] 06-08-2020 Episodic Deficiency and other anemia (1 source) Anemia, unspecified; Translations: [Anemia, unspecified] Onset: 05-01-2024 Episodic Disorders of lipid metabolism (6 sources) Hyperlipidemia; Translations: [Hyperlipidemia, unspecified] 03-22-2018 Chronic Essential hypertension (6 sources) Hypertensive disorder; Translations: [Essential (primary) hypertension] 03-22-2018 Chronic Essential hypertension (1 source) Essential hypertension Onset: 01-16-2017 Headache, including migraine (1 source) Headache, including migraine Onset: 01-16-2017 Hyperplasia of prostate (7 sources) Benign prostatic hyperplasia; Translations: [Benign prostatic hyperplasia without lower urinary tract symptoms] Onset: 11-01-2023 06-08-2020 Chronic Other circulatory disease (6 sources) Low blood pressure; Translations: [Hypotension, unspecified] 06-07-2020 Episodic Other liver diseases (6 sources) Liver enzymes abnormal; Translations: [Abnormal levels of other serum enzymes] 06-08-2020 Episodic Other lower respiratory disease (6 sources) Dyspnea; Translations: [Dyspnea, unspecified] 06-08-2020 Episodic Other nervous system disorders (6 sources) Neuropathy; Translations: [Polyneuropathy, unspecified] 04-01-2020 Chronic Other screening for suspected conditions (not mental disorders or infectious disease) (9 sources) Raised prostate specific antigen; Translations: [Elevated prostate specific antigen [PSA]] 06-08-2020 Episodic Other upper respiratory infections (6 sources) Acute maxillary sinusitis; Translations: [Acute maxillary sinusitis, unspecified] 03-14-2019 Episodic Unclassified (1 source) Ataxia, unspecified / R27.0(ICD-10) [...] Unclassified (1 source) Athscl heart disease of [place] coronary artery w/o ang pctrs / I25.10(ICD-10) [...] / Z87.891(ICD-10) Onset: 01-16-2017 Unclassified (1 source) USP (current) use of aspirin / Z79.82(ICD-10) Onset: 01-16-2017 Unclassified (1 source) Presence of aortocoronary bypass graft / Z95.1(ICD-10) Onset: 01-16-2017 Unclassified (1 source) Presence of coronary angioplasty implant and graft / Z95.5(ICD-10) Onset: 01-16-2017 Unclassified (1 source) Allergy status to penicillin / Z88.0(ICD-10) Onset: 01-16-2017 Unclassified (1 source) termite inspector (current) use of anticoagulants / Z79.01(ICD-10) Onset: 01-16-2017 Past or Other Problems Problem Classification Problem Date Documented Da te Episodic/Chronic Unclassified (1 source) Cereb infrc due to unsp occls or stenos of right cereblr art; Translations: [Cereb infrc due to unsp occls or stenos of right cereblr art] Onset: 01-11-2017 Unclassified (4 sources) [address] [employer] 09-26-2021 Unclassified (4 sources) 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 Vision Issues The patient reports anxiety due to an upcoming laser surgery on his eye. He describes his vision as 'not good' and mentions that the issue is related to a cloudy sack from a previous cataract surgery. He recently received an injection on Sunday and is scheduled for the laser procedure today at 10:15 AM. The patient hopes this will improve his vision. His left eye is reported to be in good condition. Cardiac Health . He has not had a stress test since he had a CABG 8 years ago. The patient denies experiencing any chest pain, jaw pain, shoulder pain, or palpitations. He continues to take Xarelto as prescribed. The patient's heart rate is under control and regular, with no immediate need for changes in his cardiac management. Physical Activity The patient remains physically active, working out a couple of times a week. He reports no changes in his balance and is able to drive comfortably, although his family member often drives when they are together for added comfort. The patient can walk heel-to-toe without stumbling or losing balance. Physical Exam: Vitals & Measurements Temperature Temporal (F): 98.1 degF (06/05/24 08:14:00) Apical Heart Rate: 60 bpm (06/05/24 08:14:00) Height/Length Measured: 175 cm (06/05/24 08:14:00) Weight Measured: 76 kg (06/05/24 08:14:00) Body Mass Index Measured: 24.82 kg/m2 (06/05/24 08:14:00) Weight Measured - lbs2: 168 lb (06/05/24 08:14:00) Height/Length Measured - in2: 69 in (06/05/24 08:14:00) Body Mass Index Measured English2: 24.81 kg/m2 (06/05/24 08:14:00) BSA: 1.92 m2 (06/05/24 08:14:00) Ht/Wt Measurement Refused by Patient?2: No (06/05/24 08:14:00) Depression Screening Scores: Initial Depression Screen Score: 0 (06/05/24 08:14:00) Fall Risk Assessment: Is the patient ambulatory (mobile): Yes (06/05/24 08:14:00) Have you had a fall within the past: No (06/05/24 08:14:00) Have you had 2 or more falls in the past: No (06/05/24 08:14:00) NECK: JVP is not elevated: Good carotid pulses and no bruit CVS; Normal heart sounds. No murmur and no gallop. No rub BP: 125/75 mm Hg LUNGS: No rhonchi and no wheeze: Clear breath sounds ADOMEN: Benign EXTREMITIES: Good distal pulses. No edema of legs Medication Reconciliation: What How Much When Instructions Unchanged acetaminophen (Tylenol 325 mg oral capsule) 650 Milligram Nasogastric Tube EVERY SIX HOURS as needed for as needed for pain Unchanged amLODIPine (amLODIPine 10 mg oral tablet) 1 Tabs Oral DAILY Unchanged aspirin (aspirin 81 mg oral tablet, chewable) 1 Tabs Oral DAILY WITH BREAKFAST Unchanged atorvastatin (atorvastatin 40 mg oral tablet) 1 Tabs Oral DAILY Unchanged lisinopril (lisinopril 10 mg oral tablet) 1 Tabs Oral DAILY Unchanged metoprolol (metoprolol tartrate 25 mg oral tablet) 1 Tabs Oral TWICE A DAY Unchanged rivaroxaban (Xarelto 20 mg oral tablet) 1 Tabs Oral DAILY WITH EVENING MEAL Unchanged tamsulosin (Flomax 0.4 mg oral capsule) 2 Capsules Oral AT BEDTIME Assessment/Plan: 1. CAD (coronary artery disease) I25.10: Will plan for a stress test on his next visit. 2. S/P CABG (coronary artery bypass graft) Z95.1:RAMOS-LAD GOOD and Radial composite graft to PDA and OM 3. HTN (hypertension) I10: on amlodipine and lisinopril 4. HLD (hyperlipidemia) E78.5. On lipitor 5. CVA (cerebrovascular accident) I63.9 6. Atrial fibrillation I48.91, takes xarelto 7. Vasovagal episode R55 8. He will continue current medications as specified above and I will see him again in 6 months time Problem List/Past Medical History: Ongoing Atrial fibrillation CAD (coronary artery disease) Cerebrovascular accident (CVA) CVA (cerebrovascular accident) Dizziness Dyspnea HLD (hyperlipidemia) HLD (hyperlipidemia) HTN (hypertension) Low blood pressure Retinal disorder S/p CABG (coronary artery bypass graft) S/P CABG (coronary artery bypass graft) Vasovagal episode Procedure/Surgical History: Cardioversion.: 11/03/16 Transesophageal Echocardiogram.: 11/03/16 Coronary Artery Bypass Graft (CABG).: 10/27/16 Coronary Angiograms.: 10/26/16 laser rt eye cardiac stents x2 Allergies: penicillins childhood rxn -rash Social History: Alcohol Use:Current Type:Beer Frequency:1-2 times per week Domestic Concerns Feels highly stressed:No *Requesting to speak to someone regarding stressNo Emotional Support AvailableYes CopingEffective *Patient's ResponsibilitiesDriving, Hobbies/Play/Sports, Housework, Laundry, Meal preparation, Yard work *Financial Concern (more content not included)... [facility] Provider Letter - Ambulatory on 06-10-2024 Provider Letter - Ambulatory ALFONSO BAPTISTE, [address] [id number] RE: FADI POSADAS - 1950 06/05/2024 Dear ALFONSO BAPTISTE This document is confidential and intended solely for the use of the individual or entity to which they are addressed. If you are not the named addressee, please disregard and do not disseminate, distribute or copy this information. If you are not the intended recipient you are notified that any disclosure of this information and its contents are strictly prohibited. If you have any questions about this document, please contact the office. Sincerely, Rachel Reynolds MA [facility] The following document(s) were included in the letter: June 05, 2024 15:11:00 EDT - (06/05/2024) *.AMB Office Visit Note Normal [facility] Absolute neutrophil countOrd ered By: Alfonso Baptiste on 04-18-2024 Neutrophils (Bld) [#/Vol] 3.6 10*3/uL 2.0-7.7 [facility] Albumin to globulin ratioOrd ered By: Alfonso Baptiste on 04-18-2024 Albumin/Globulin [Mass ratio] 1.1 {ratio} 0.9-2.4 [facility] Basophil percentageOrdered B y: Alfonso Baptiste on 04-18-2024 Basophils/100 WBC (Bld) 0.6 % 0-1 [facility] Bilirubin, totalOrdered By: Alfonso Baptiste on 04-18-2024 Bilirubin [Mass/Vol] 1.00 mg/dL 0.20-1.00 [facility] Comment on above: For patients on eltr ombopag therapy, use of [facility]ension [facility] TBIL is not recommended. Blood urea nitrogen (BUN)/cr eatinine ratioOrdered By: Alfonso Baptiste on 04-18-2024 Urea nitrogen/Creatinine [Mass ratio] 11.0 mg/mg 10 [facility] CBC W/Diff, Automatedon 03-30 Absolute Lymph 2.89 X10 3/uL Normal 0.83-4.51 [facility] Comment on above: Performed By: #### L 500.4050, L500.4100, L100.0100 #### [facility] [address] [place], [address] Absolute Neut 3.6 X10 3/uL Normal 2.0-7.7 [facility] Comment on above: Performed By: #### L 500.4050, L500.4100, L100.0100 #### [facility] [address] [place], [address] Basophils/100 WBC (Bld) 0.6 % Normal 0-1 [facility] Comment on above: Performed By: #### L 500.4050, L500.4100, L100.0100 #### [facility] [address] [place], [address] Eosinophils/100 WBC (Bld) 1.7 % Normal 0-5 [facility] Comment on above: Performed By: #### L 500.4050, L500.4100, L100.0100 #### [facility] [address] [place], [address] Erythrocyte distribution width (RBC) [Ratio] 13.1 % Normal 11.6-14.6 [facility] Comment on above: Performed By: #### L 500.4050, L500.4100, L100.0100 #### [facility] [address] [place], [address] Hematocrit (Bld) [Volume fraction] 39.0 % Low 40-54 [facility] Comment on above: Performed By: #### L 500.4050, L500.4100, L100.0100 #### [facility] [address] [place], [address] Hemoglobin (Bld) [Mass/Vol] 12.9 g/dL Low 13.0-16.5 [facility] Comment on above: Performed By: #### L 500.4050, L500.4100, L100.0100 #### [facility] [address] [place], [address] IG% 0.100 Normal 0.0-0.9 [facility] Comment on above: Result Comment: IG% - Immature Granulocytes (promyelocytes, myelocytes and metamyelocytes) > 1% indicates that a LEFT SHIFT is Present. Performed By: #### L 500.4050, L500.4100, L100.0100 #### [facility] [address] [place], [address] Lymphocytes/100 WBC (Bld) 40.4 % Normal 19-41 [facility] Comment on above: Performed By: #### L 500.4050, L500.4100, L100.0100 #### [facility] [address] [place], [address] MCH (RBC) [Entitic mass] 31.6 pg Normal 27.0-32.0 [facility] Comment on above: Performed By: #### L 500.4050, L500.4100, L100.0100 #### [facility] [address] [place], [address] MCHC (RBC) [Mass/Vol] 33.1 g/dL Normal 32-36 [facility] Comment on above: Performed By: #### L 500.4050, L500.4100, L100.0100 #### [facility] [address] [place], [address] MCV (RBC) [Entitic vol] 95.6 fL High 80-94 [facility] Comment on above: Performed By: #### L 500.4050, L500.4100, L100.0100 #### [facility] [address] [place], [address] Monocytes/100 WBC (Bld) 7.5 % Normal 0-10 [facility] Comment on above: Performed By: #### L 500.4050, L500.4100, L100.0100 #### [facility] [address] [place], [address] Neutrophils/100 WBC (Bld) 49.7 % Normal 47-70 [facility] Comment on above: Performed By: #### L 500.4050, L500.4100, L100.0100 #### [facility] [address] [place], [address] Nucleated RBC (Bld) [#/Vol] 0 10*3/uL Normal 0-5 [facility] Comment on above: Performed By: #### L 500.4050, L500.4100, L100.0100 #### [facility] [address] [place], [address] Platelet mean volume (Bld) [Entitic vol] 11.4 fL Normal 6.2-12.0 [facility] Comment on above: Performed By: #### L 500.4050, L500.4100, L100.0100 #### [facility] [address] [place], [address] Platelets (Bld) [#/Vol] 200 10*3/uL Normal 150-450 [facility] Comment on above: Performed By: #### L 500.4050, L500.4100, L100.0100 #### [facility] [address] [place], [address] RBC (Bld) [#/Vol] 4.08 10*6/uL Low 4.6-6.2 [facility] Comment on above: Performed By: #### L 500.4050, L500.4100, L100.0100 #### [facility] [address] [place], [address] RDW SD 46.5 fl High 35.1-43.9 [facility] Comment on above: Performed By: #### L 500.4050, L500.4100, L100.0100 #### [facility] [address] [place], [address] WBC (Bld) [#/Vol] 7.2 10*3/uL Normal 4.4-11.0 [facility] Comment on above: Performed By: #### L 500.4050, L500.4100, L100.0100 #### [facility] [address] [place], [address] Carbon dioxide measurementOr dered By: Alfonso Baptiste on 04-18-2024 CO2 [Moles/Vol] 31.0 mmol/L 21.0-32.0 [facility] Chloride measurementOrdered By: Alfonso Baptiste on 04-18-2024 Chloride [Moles/Vol] 105 mmol/L 98-107 [facility] Comprehensive Metabolic Prof ilon 04-18-2024 Albumin [Mass/Vol] 3.8 g/dL Normal 3.2-5.0 [facility] Comment on above: Performed By: #### L 500.4050, L500.4100, L100.0100 #### [facility] [address] [place], [address] Albumin/Globulin [Mass ratio] 1.1 {ratio} Normal 0.9-2.4 [facility] Comment on above: Performed By: #### L 500.4050, L500.4100, L100.0100 #### [facility] [address] [place], [address] ALK P 57 U/L Normal 45-117 [facility] Comment on above: Performed By: #### L 500.4050, L500.4100, L100.0100 #### [facility] [address] [place], [address] ALT [Catalytic activity/Vol] 37 U/L Normal 16-61 [facility] Comment on above: Performed By: #### L 500.4050, L500.4100, L100.0100 #### [facility] [address] [place], [address] AST [Catalytic activity/Vol] 19 U/L Normal 15-37 [facility] Company Comment on above: Performed By: #### L 500.4050, L500.4100, L100.0100 #### [facility] [address] [place], [address] Bilirubin [Mass/Vol] 1.00 mg/dL Normal 0.20-1.00 [facility] Comment on above: Result Comment: For patients on eltrombopag therapy, use of Dimension [facility] TBIL is not recommended. Performed By: #### L 500.4050, L500.4100, L100.0100 #### [facility] [address] [place], [address] BUN/CRE 11.0 RATIO Normal 10-20 [facility] Comment on above: Performed By: #### L 500.4050, L500.4100, L100.0100 #### [facility] [address] [place], [address] CA,Total 9.9 mg/dL Normal 8.5-10.1 [facility] Comment on above: Performed By: #### L 500.4050, L500.4100, L100.0100 #### [facility] [address] [place], [address] Chloride [Moles/Vol] 105 mmol/L Normal 98-107 [facility] Comment on above: Performed By: #### L 500.4050, L500.4100, L100.0100 #### [facility] [address] [place], [address] CO2 [Moles/Vol] 31.0 mmol/L Normal 21.0-32.0 [facility] Comment on above: Performed By: #### L 500.4050, L500.4100, L100.0100 #### [facility] [address] [place], [address] Creatinine [Mass/Vol] 1.55 mg/dL High 0.70-1.30 [facility] Comment on above: Result Comment: The validity of the calculated GFR GFRAA in patients over 70 years has not been determined. Clinical correlation is essential. Performed By: #### L 500.4050, L500.4100, L100.0100 #### [facility] [address] [place], [address] EST GFR - AA 57 mL/min Low >60 [facility] Comment on above: Result Comment: Afri can Dutch GFR Calc Performed By: #### L 500.4050, L500.4100, L100.0100 #### [facility] [address] [place], [address] GAP 5 Normal 5-15 [facility] Comment on above: Performed By: #### L 500.4050, L500.4100, L100.0100 #### [facility] [address] [place], [address] GFR/1.73 sq M.predicted among non-blacks MDRD (S/P/Bld) [Vol rate/Area] 47 mL/min/{1.73_m2} Low >60 [facility] Comment on above: Result Comment: Non- GFR Calc Performed By: #### L 500.4050, L500.4100, L100.0100 #### [facility] [address] [place], [address] Globulin (S) [Mass/Vol] 3.4 g/dL Normal 2.2-4.2 [facility] Comment on above: Performed By: #### L 500.4050, L500.4100, L100.0100 #### [facility] [address] [place], [address] Glucose [Mass/Vol] 98 mg/dL Normal 74-106 [facility] Comment on above: Performed By: #### L 500.4050, L500.4100, L100.0100 #### [facility] [address] [place], [address] Potassium [Moles/Vol] 3.8 mmol/L Normal 3.5-5.1 [facility] Comment on above: Performed By: #### L 500.4050, L500.4100, L100.0100 #### [facility] [address] [place], [address] Sodium [Moles/Vol] 140 mmol/L Normal 136-145 [facility] Comment on above: Performed By: #### L 500.4050, L500.4100, L100.0100 #### [facility] [address] [place], [address] T PROT 7.2 g/dL Normal 6.4-8.2 [facility] Comment on above: Performed By: #### L 500.4050, L500.4100, L100.0100 #### [facility] [address] [place], [address] Urea nitrogen [Mass/Vol] 17 mg/dL Normal 7-18 [facility] Comment on above: Performed By: #### L 500.4050, L500.4100, L100.0100 #### [facility] [address] [place], [place], [id number] Eosinophil percentageOrdered By: Alfonso Baptiste on 04-18-2024 Eosinophils/100 WBC (Bld) 1.7 % 0-5 [facility] Erythrocyte distribution wid th ratioOrdered By: Alfonso Baptiste on 04-18-2024 Erythrocyte distribution width (RBC) [Ratio] 13.1 % 11.6-14.6 [facility] Erythrocyte distribution wid th standard deviationOrdered By: Alfonso Baptiste on 04-18-2024 Erythrocyte distribution width (RBC) [Entitic vol] 46.5 fL High 35.1-43.9 [facility] Estimated glomerular filtrat ion rate (GFR) AmericanOrdered By: Alfonso Baptiste on 04-18-2024 Estimated GFR (MDRD) Amer 57 mL/min Low >60 [facility] Comment on above: GFR Calc Glomerular filtration rate ( GFR) estimationOrdered By: Alfonso Baptiste on 04-18-2024 Estimated GFR (MDRD) Non-Af Amer 47 mL/min Low >60 [facility] Comment on above: Non- GFR Calc Glucose measurementOrdered B y: Alfonso Baptiste on 04-18-2024 Glucose [Mass/Vol] 98 mg/dL 74-106 [facility] Hematocrit Auto (Bld) [Volum e fraction]Ordered By: Alfonso Baptiste on 04-18-2024 Hematocrit (Bld) [Volume fraction] 39.0 % Low 40-54 [facility] Hemoglobin measurementOrdere d By: Alfonso Baptiste on 04-18-2024 Hemoglobin (Bld) [Mass/Vol] 12.9 g/dL Low 13.0-16.5 [facility] High density lipoprotein (HD L) measurementOrdered By: Alfonso Baptiste on 04-18-2024 Cholesterol in HDL [Mass/Vol] 43 mg/dL >40 [facility] Comment on above: The drugs N-Acetylcy steine and Metamizole may falsely depress this assay. Reference Range HDL <40 mg/dL Low HDL Cholesterol HDL >or= 60 mg/dL High HDL Cholesterol Immature granulocytes/100 WB C Auto (Bld)Ordered By: Alfonso Baptiste on 04-18-2024 Immature granulocytes/100 WBC (Bld) 0.100 % 0.0-0.9 [facility] Comment on above: IG% - Immature Granu locytes (promyelocytes, myelocytes and metamyelocytes) > 1% indicates that a LEFT SHIFT is Present. Laboratory - Chemistry and C hemistry - challengeOrdered By: Alfonso Baptiste on 04-18-2024 AST [Catalytic activity/Vol] 19 U/L 15-37 [facility] Lipid Profileon 04-18-2024 Cholesterol [Mass/Vol] 111 mg/dL Normal 200 [facility] Comment on above: Result Comment: <200 mg/dL Desirable 200-240 mg/dL Borderline >240 mg/dL High Risk Performed By: #### L 500.4050, L500.4100, L100.0100 #### [facility] [address] [place], [address] Cholesterol in HDL [Mass/Vol] 43 mg/dL Normal [facility] Comment on above: Result Comment: The drugs N-Acetylcysteine and Metamizole may falsely depress this assay. Reference Range HDL <40 mg/dL Low HDL Cholesterol HDL >or= 60 mg/dL High HDL Cholesterol Performed By: #### L 500.4050, L500.4100, L100.0100 #### [facility] [address] [place], [address] Cholesterol in LDL [Mass/Vol] 42 mg/dL Normal 0-130 [facility] Comment on above: Performed By: #### L 500.4050, L500.4100, L100.0100 #### [facility] [address] [place], [address] Cholesterol in VLDL [Mass/Vol] 26 mg/dL Normal 5-40 [facility] Comment on above: Performed By: #### L 500.4050, L500.4100, L100.0100 #### [facility] [address] [place], [address] Triglyceride [Mass/Vol] 132 mg/dL Normal [facility] Comment on above: Result Comment: The drugs N-Acetylcysteine and Metamizole may falsely depress this assay. Serum Triglycerides Reference Interval Normal <150 mg/dL Borderline high 150 - 199 mg/dL High 200 - 499 mg/dL Very High > or = 500 mg/dL Performed By: #### L 500.4050, L500.4100, L100.0100 #### [facility] [address] [place], [place], [id number] Low density lipoprotein (LDL ) cholesterol measurementOrdered By: Alfonso Baptiste on 04-18-2024 Cholesterol in LDL [Mass/Vol] 42 mg/dL 0-130 [facility] Lymphocytes Auto (Unsp spec) [#/Vol]Ordered By: Alfonso Baptiste on 04-18-2024 Lymphocytes (Bld) [#/Vol] 2.89 10*3/uL 0.83-4.51 [facility] Lymphocytes/100 WBC Auto (Un sp spec)Ordered By: Alfonso Baptiste on 04-18-2024 Lymphocytes/100 WBC (Bld) 40.4 % 19-41 [facility] MCV (mean corpuscular volume ) determinationOrdered By: Alfonso Baptiste on 04-18-2024 MCV (RBC) [Entitic vol] 95.6 fL High 80-94 [facility] Mean corpuscular hemoglobin (MCH) determinationOrdered By: Alfonso Baptiste on 04-18-2024 MCH (RBC) [Entitic mass] 31.6 pg 27.0-32.0 [facility] Mean corpuscular hemoglobin concentration (MCHC) determinationOrdered By: Alfonso Baptiste on 04-18-2024 MCHC (RBC) [Mass/Vol] 33.1 g/dL 32-36 [facility] Mean platelet volume determi nationOrdered By: Alfonso Baptiste on 04-18-2024 Platelet mean volume (Bld) [Entitic vol] 11.4 fL 6.2-12.0 [facility] Monocyte percentageOrdered B y: Alfonso Baptiste on 04-18-2024 Monocytes/100 WBC (Bld) 7.5 % 0-10 [facility] Neutrophil percentageOrdered By: Alfonso Baptiste on 04-18-2024 Neutrophils/100 WBC (Bld) 49.7 % 47-70 [facility] Nucleated red blood cell per centageOrdered By: Alfonso Baptiste on 04-18-2024 Nucleated RBC/100 WBC (Bld) [Ratio] 0 % 0-5 [facility] Platelet countOrdered By: Do ra Baptiste on 04-18-2024 Platelets (Bld) [#/Vol] 200 10*3/uL 150-450 [facility] Potassium measurementOrdered By: Alfonso Baptiste on 04-18-2024 Potassium [Moles/Vol] 3.8 mmol/L 3.5-5.1 [facility] RBC Auto (Bld) [#/Vol]Ordere d By: Alfonso Baptiste on 04-18-2024 RBC (Bld) [#/Vol] 4.08 10*6/uL Low 4.6-6.2 [facility] Serum anion gap measurementO rdered By: Alfonso Baptiste on 04-18-2024 Anion gap [Moles/Vol] 5 mmol/L 5-15 [facility] Serum globulin measurementOr dered By: Alfonso Baptiste on 04-18-2024 Globulin (S) [Mass/Vol] 3.4 g/dL 2.2-4.2 [facility] Serum or plasma alanine lopez otransferase (ALT) measurementOrdered By: Alfonso Baptiste on 04-18-2024 ALT [Catalytic activity/Vol] 37 U/L 16-61 [facility] Serum or plasma albumin kirsty urement (mass/volume)Ordered By: Alfonso Baptiste on 04-18-2024 Albumin [Mass/Vol] 3.8 g/dL 3.2-5.0 [facility] Serum or plasma alkaline radha sphatase measurementOrdered By: Alfonso Baptiste on 04-18-2024 ALP [Catalytic activity/Vol] 57 U/L 45-117 [facility] Serum or plasma calcium kirsty urement (mass/volume)Ordered By: Alfonso Baptiste on 04-18-2024 Calcium [Mass/Vol] 9.9 mg/dL 8.5-10.1 [facility] Serum or plasma cholesterol measurement (mass/volume)Ordered By: Alfonso Baptiste on 04-18-2024 Cholesterol [Mass/Vol] 111 mg/dL <200 [facility] Comment on above: <200 mg/dL Desirable 200-240 mg/dL Borderline >240 mg/dL High Risk Serum or plasma creatinine m easurement (mass/volume)Ordered By: Alfonso Baptiste on 04-18-2024 Creatinine [Mass/Vol] 1.55 mg/dL High 0.70-1.30 [facility] Comment on above: The validity of the calculated GFR & GFRAA in patients over 70 years has not been determined. Clinical correlation is essential. Serum or plasma urea nitroge n measurement (mass/volume)Ordered By: Alfonso Baptiste on 04-18-2024 Urea nitrogen [Mass/Vol] 17 mg/dL 7-18 [facility] Sodium levelOrdered By: Alfonso Baptiste on 04-18-2024 Sodium [Moles/Vol] 140 mmol/L 136-145 [facility] Total proteinOrdered By: Lavon Baptiste on 04-18-2024 Protein [Mass/Vol] 7.2 g/dL 6.4-8.2 [facility] Triglycerides measurementOrd ered By: Alfonso Baptiste on 04-18-2024 Triglyceride [Mass/Vol] 132 mg/dL <199 [facility] Comment on above: The drugs N-Acetylcy steine and Metamizole may falsely depress this assay.Serum Triglycerides Reference Interval Normal <150 mg/dL Borderline high 150 - 199 mg/dL High 200 - 499 mg/dL Very High > or = 500 mg/dL Very low density lipoprotein (VLDL) cholesterol measurementOrdered By: Alfonso Baptiste on 04-18-2024 VLDL Cholesterol 26 mg/dL 5-40 [facility] White blood cell (WBC) count Ordered By: Alfonso Baptiste on 04-18-2024 WBC (Bld) [#/Vol] 7.2 10*3/uL 4.4-11.0 [facility] Amb Office-Progress Notes-Pr ovideron 12-11-2023 Amb Office-Progress Notes-Provider FADI POSADAS :1950 Registration Date:12/10/2023 Chief Complaint CAD, AFIB History of Present Illness This is a follow-up visit for Mr. Posadas and he ignacia coronary disease CABG remote CVA atrial fibrillation hypertension and hyperlipidemia. His right eye is still bothering him but vision is okay. His balance is reasonably steady. He is very cautious when he is driving. Denies any chest pain jaw pain palpitations shortness of breath no lightheadedness dizziness. He is very compliant with his medications and he does exercise almost every day. BP: 122/74 mm Hg Physical Exam Vitals & Measurements Temperature Temporal (F): 98.3 degF (12/10/23 08:50:00) Apical Heart Rate: 58 bpm Low (12/10/23 08:50:00) Height/Length Measured: 175 cm (12/10/23 08:50:00) Weight Measured: 80 kg (12/10/23 08:50:00) Body Mass Index Measured: 26.12 kg/m2 (12/10/23 08:50:00) Weight Measured - lbs2: 176 lb (12/10/23 08:50:00) Height/Length Measured - in2: 69 in (12/10/23 08:50:00) Body Mass Index Measured English2: 25.99 kg/m2 (12/10/23 08:50:00) BSA: 1.97 m2 (12/10/23 08:50:00) Ht/Wt Measurement Refused by Patient?2: No (12/10/23 08:50:00) Depression Screening Scores Initial Depression Screen Score: 0 (12/10/23 08:50:00) Fall Risk Assessment Is the patient ambulatory (mobile): Yes (12/10/23 08:50:00) Have you had a fall within the past: No (12/10/23 08:50:00) Have you had 2 or more falls in the past: No (12/10/23 08:50:00) NECK: JVP is not elevated: Good carotid pulses and no bruit CVS; Normal heart sounds. No murmur and no gallop. No rub LUNGS: No rhonchi and no wheeze: Clear breath sounds ADOMEN: Benign EXTREMITIES: Good distal pulses. No edema of legs Medication Reconciliation What How Much When Instructions Unchanged acetaminophen (Tylenol 325 mg oral capsule) 650 Milligram Nasogastric Tube EVERY SIX HOURS as needed for as needed for pain Unchanged amLODIPine (amLODIPine 10 mg oral tablet) 1 Tabs Oral DAILY Unchanged aspirin (aspirin 81 mg oral tablet, chewable) 1 Tabs Oral DAILY WITH BREAKFAST Unchanged atorvastatin (atorvastatin 40 mg oral tablet) 1 Tabs Oral DAILY Unchanged lisinopril (lisinopril 10 mg oral tablet) 1 Tabs Oral DAILY Unchanged metoprolol (metoprolol tartrate 25 mg oral tablet) 1 Tabs Oral TWICE A DAY Unchanged rivaroxaban (Xarelto 20 mg oral tablet) 1 Tabs Oral DAILY WITH EVENING MEAL Unchanged tamsulosin (Flomax 0.4 mg oral capsule) 2 Capsules Oral AT BEDTIME Assessment/Plan 1. CAD (coronary artery disease) I25.10 2. S/P CABG (coronary artery bypass graft) Z95.1:RAMOS-LAD GOOD and Radial composite graft to PDA and OM 3. HTN (hypertension) I10: on amlodipine and lisinopril 4. HLD (hyperlipidemia) E78.5. On lipitor 5. CVA (cerebrovascular accident) I63.9 6. Atrial fibrillation I48.91, takes xarelto 7. Vasovagal episode R55 8.Continue current medications and follow up in six months. 9.Copy to Francia Baptiste Problem List/Past Medical History Ongoing Atrial fibrillation CAD (coronary artery disease) Cerebrovascular accident (CVA) CVA (cerebrovascular accident) Dizziness Dyspnea HLD (hyperlipidemia) HLD (hyperlipidemia) HTN (hypertension) Low blood pressure Retinal disorder S/p CABG (coronary artery bypass graft) S/P CABG (coronary artery bypass graft) Vasovagal episode Procedure/Surgical History Cardioversion.: 11/03/16 Transesophageal Echocardiogram.: 11/03/16 Coronary Artery Bypass Graft (CABG).: 10/27/16 Coronary Angiograms.: 10/26/16 laser rt eye cardiac stents x2 Allergies penicillins childhood rxn -rash Social History Alcohol Use:Current Type:Beer Frequency:1-2 times per week Domestic Concerns Feels highly stressed:No *Requesting to speak to someone regarding stressNo Emotional Support AvailableYes CopingEffective *Patient's ResponsibilitiesDriving, Hobbies/Play/Sports, Housework, Laundry, Meal preparation, Yard work *Financial Concerns Regarding Hospitalization/DischargeNo Financial ConcernsNo *Requesting to speak to someone regarding financial concernsNo Concern for family members at home:No Major illness in household:No *Family/Friends available to help:Yes Exercise - Regular exercise Home/Environment Lives with:Spouse *Living Situation Prior to AdmissionHome/Independent Home equipment:None Monitoring Equipment in homebp machine *Special Services and Community Resources Prior to AdmissionNone *Mobility Assistance Prior to AdmissionIndependent Home BarriersNone *Will patient require additional/new services upon discharge?Yes Other Name:caffiene Substance Abuse - Denies Substance Abuse Tobacco Use:Former smoker Type:Cigarettes Stopped at age:29Years *Exposure to Tobacco SmokeNo Exposure Family History High blood pressure....: Mother and Father. Health Status Family Member(s) Care Team Primary Care Physician KRISTEN (more content not included)... [facility] Provider Letter - Ambulatory on 12-11-2023 Provider Letter - Ambulatory ALFONSO BAPTISTE, [address] [place] [id number] RE: FADI POSADAS - 1950 12/10/2023 Dear ALFONSO BAPTISTE This document is confidential and intended solely for the use of the individual or entity to which they are addressed. If you are not the named addressee, please disregard and do not disseminate, distribute or copy this information. If you are not the intended recipient you are notified that any disclosure of this information and its contents are strictly prohibited. If you have any questions about this document, please contact the office. Sincerely, Rachel Reynolds MA [facility] The following document(s) were included in the letter: December 10, 2023 19:29:25 EDT - (12/10/2023) *.AMB Office Visit Note [facility] Ambulatory Clinical Summaryo n 12-10-2023 Ambulatory Clinical Summary FADI POSADAS :1950 Registration Date:12/10/2023 Ambulatory Visit Instructions Your Care Team Attending Physician - SATISH CISSE, PADILLA Primary Care Physician - BAPTISTE , ALFONSO Procedures Performed Cardioversion. (11/03/2016) Transesophageal Echocardiogram. (11/03/2016) Coronary Artery Bypass Graft (CABG). (10/27/2016) Coronary Angiograms. (10/26/2016) cardiac stents x2 laser rt eye Discharge Vitals Temperature (Temporal Artery) 98.3 DEGF Heart Rate (Apical) 58 Height 68.90 in (175 cm) Weight 176.40 lb (80 kg) BMI 26.12 Temperature Temporal (F): 98.3 degF (12/10/23 08:50:00) Apical Heart Rate: 58 bpm Low (12/10/23 08:50:00) Height/Length Measured: 175 cm (12/10/23 08:50:00) Weight Measured: 80 kg (12/10/23 08:50:00) Body Mass Index Measured: 26.12 kg/m2 (12/10/23 08:50:00) Weight Measured - lbs2: 176 lb (12/10/23 08:50:00) Height/Length Measured - in2: 69 in (12/10/23 08:50:00) Body Mass Index Measured English2: 25.99 kg/m2 (12/10/23 08:50:00) BSA: 1.97 m2 (12/10/23 08:50:00) Ht/Wt Measurement Refused by Patient?2: No (12/10/23 08:50:00) What to do next Scheduled Follow-Up Appointments Appointment Type Reason for visit Day With Date Time Where City[facility] Established Patient 1 6 MONTHS Padilla Covarrubias MD June 05, 2024 08:15 am EDT CARD [place] [id number] [facility] [address] [facility] ZIP:[address] Medications What How Much When Instructions Unchanged acetaminophen (Tylenol 325 mg oral capsule) 650 Milligram Nasogastric Tube EVERY SIX HOURS as needed for as needed for pain Unchanged amLODIPine (amLODIPine 10 mg oral tablet) 1 Tabs Oral DAILY Unchanged aspirin (aspirin 81 mg oral tablet, chewable) 1 Tabs Oral DAILY WITH BREAKFAST Unchanged atorvastatin (atorvastatin 40 mg oral tablet) 1 Tabs Oral DAILY Unchanged lisinopril (lisinopril 10 mg oral tablet) 1 Tabs Oral DAILY Unchanged metoprolol (metoprolol tartrate 25 mg oral tablet) 1 Tabs Oral TWICE A DAY Unchanged rivaroxaban (Xarelto 20 mg oral tablet) 1 Tabs Oral DAILY WITH EVENING MEAL Unchanged tamsulosin (Flomax 0.4 mg oral capsule) 2 Capsules Oral AT BEDTIME Allergies penicillins childhood rxn -rash Problems Ongoing - Any problem that you are currently receiving treatment for. Atrial fibrillation CAD (coronary artery disease) Cerebrovascular accident (CVA) CVA (cerebrovascular accident) Dizziness Dyspnea HLD (hyperlipidemia) HLD (hyperlipidemia) HTN (hypertension) Low blood pressure Retinal disorder S/p CABG (coronary artery bypass graft) S/P CABG (coronary artery bypass graft) Vasovagal episode Common Emergency Awareness Tips IS IT A STROKE? Act FAST and Check for these signs: FACE Does the face look uneven? ARM Does one arm drift down? SPEECH Does their speech sound strange? TIME Call at any sign of stroke Heart Attack Signs Chest discomfort: Most heart attacks involve discomfort in the center of the chest and lasts more than a few minutes, or goes away and comes back. It can feel like uncomfortable pressure, squeezing, fullness or pain. Discomfort in upper body: Symptoms can include pain or discomfort in one or both arms, back, neck, jaw or stomach. Shortness of breath: With or without discomfort. Other signs: Breaking out in a cold sweat, nausea, or lightheaded. Remember, MINUTES DO MATTER. If you experience any of these heart attack warning signs, call to get immediate medical attention! [facility] Comprehensive Intake - Texto n 12-10-2023 Comprehensive Intake - Text Comprehensive Intake Entered On: 12/10/2023 8:51 EDT Performed On: 12/10/2023 8:50 EDT by Rachel Reynolds MA Summary Chief Complaint : CAD, AFIB Advance Directive : No Bladder Control Issues? : No Urine Leakage? : No Presence or absence of urinary incontinence assessed : Yes CPT-II Medication list doc'd in medical record : Yes Influenza immunization administered or previously received : No Pneumococcal vaccine administered or previously received : No Rachel Reynolds MA - 12/10/2023 8:50 EDT Measurements Ht/Wt Measurement Refused by Patient? : No Weight Measured : 80 kg(Converted to: 176 lb 6 oz, 176.370 lb) Height/Length Measured : 175 cm(Converted to: 5 ft 9 in, 68.90 in) Body Mass Index Measured : 26.12 kg/m2 Body Mass Index documented : Yes Weight Measured - lbs : 176 lb(Converted to: 176 lb 0 oz, 80 kg) Height/Length Measured - in : 69 in(Converted to: 5 ft 9 in, 175 cm) Body Mass Index Measured Georgian : 25.99 kg/m2 BSA Georgian : 1.97 m2 Rodolfo FRANCORachel - 12/10/2023 8:50 EDT Vitals Require BP : No Apical Heart Rate : 58 bpm (LOW) Temperature Temporal (F) : 98.3 degF(Converted to: 37 degC) Pain Present : No actual or suspected pain Pain : 0 Pain severity quantified : No pain present Rodolfo FRANCORachel - 12/10/2023 8:50 EDT Infection Screening Travel outside [place] within past 21 days : No Positive COVID test in the last 10 days? : No Exposure to and/or close contact with a person who has a laboratory-confirmed COVID test within the last 48 hours. : No Reynolds MARachel - 12/10/2023 8:50 EDT Depression Screening Is patient currently : None of the Below Feeling Down, Depressed, Hopeless : Not at all Little Interest - Pleasure in Activities : Not at all Initial Depression Screen Score : 0 Depression Screening Score 0 : No Rodolfo FRANCORachel - 12/10/2023 8:50 EDT Problems (As Of: 12/10/2023 08:51:59 EDT) Problems(Active) At risk for falls (SNOMED CT :552023139 ) Name of Problem: At risk for falls ; Recorder: SYSTEM; Confirmation: Confirmed ; Classification: Nursing ; Code: [id number] ; Last Updated: 10/26/2016 18:39 EDT ; Life Cycle Date: 10/26/2016 ; Life Cycle Status: Active ; Vocabulary: SNOMED CT ; Comments: 10/26/2016 18:39 - SYSTEM Problem added automatically by system based on documentation of a admission to the hospital. Atrial fibrillation (SNOMED CT :43904791 ) Name of Problem: Atrial fibrillation ; Recorder: SATISH CISSE, PADILLA; Confirmation: Confirmed ; Classification: Medical ; Code: [id number] ; Contributor System: [employer] ; Last Updated: 12/30/2020 06:03 EDT ; Life Cycle Date: 12/30/2020 ; Life Cycle Status: Active ; Responsible Provider: PADILLA COVARRUBIAS MD; Vocabulary: SNOMED CT CAD (coronary artery disease) (SNOMED CT :3384471821 ) Name of Problem: CAD (coronary artery disease) ; Recorder: PADILLA COVARRUBIAS MD; Confirmation: Confirmed ; Classification: Medical ; Code: [id number] ; Contributor System: PowerChart ; Last Updated: 10/06/2016 10:23 EDT ; Life Cycle Date: 10/06/2016 ; Life Cycle Status: Active ; Responsible Provider: PADILLA COVARRUBIAS MD; Vocabulary: SNOMED CT Cerebrovascular accident (CVA) (SNOMED CT :844548512 ) Name of Problem: Cerebrovascular accident (CVA) ; Recorder: Yael Lopez LPN; Confirmation: Confirmed ; Classification: Medical ; Code: [id number] ; Contributor System: [employer] ; Last Updated: 01/16/2017 17:44 EST ; Life Cycle Status: Active ; Vocabulary: SNOMED CT CVA (cerebrovascular accident) (SNOMED CT :047092499 ) Name of Problem: CVA (cerebrovascular accident) ; Recorder: PADILLA COVARRUBIAS MD; Confirmation: Confirmed ; Classification: Medical ; Code: [id number] ; Contributor System: GeoVax[employer] ; Last Updated: 12/30/2020 06:02 EDT ; Life Cycle Date: 12/30/2020 ; Life Cycle Status: Active ; Responsible Provider: PADILLA COVARRUBIAS MD; Vocabulary: SNOMED CT Dizziness (SNOMED CT :4120825886 ) Name of Problem: Dizziness ; Recorder: Phyllis Griffin MA; Confirmation: Confirmed ; Classification: Medical ; Code: [id number] ; Contributor System: PowerChart ; Last Updated: 06/10/2020 08:50 EDT ; Life Cycle Date: 06/10/2020 ; Life Cycle Status: Active ; Responsible Provider: Phyllis Griffin MA; Vocabulary: SNOMED CT Dyspnea (SNOMED CT :961957954 ) Name of Problem: Dyspnea ; Recorder: Phyllis Griffin MA; Confirmation: Confirmed ; Classification: Medical ; Code: [id number] ; Contributor System: PowerChart ; Last Updated: 06/10/2020 08:51 EDT ; Life Cycle Date: 06/10/2020 ; Life Cycle Status: Active ; Responsible Provider: Phyllis Griffin MA; Vocabulary: SNOMED CT HLD (hyperlipidemia) (SNOMED CT :582990376 ) Name of Problem: HLD (hyperlipidemia) ; Recorder: SATISH CISSE PADILLA; Confirmation: Confirmed ; Classification: Medical ; Code: [id number] ; Contributor System: PowerChart ; Last Updated: 10/06/2016 10:24 EDT ; Life Cycle Date: 10/06/2016 ; Life Cycle Status: Active ; Responsible Provi (more content not included)... Normal [facility] PSA,Total- Diagnosticon 08-0 PSA, DIAGNOSTIC 3.37 ng/mL Normal 0.0-4.0 [facility] Comment on above: Result Comment: This test was performed using the TPSA assay method for the edulio chemistry system. Values obtained with different assay methods cannot be used interchangably. When changing PSA assays in the course of monitoring a patient, additional sequential testing should be carried out to confirm baseline values. Performed By: #### L 501.9940 #### [facility] [address] [place], [address] [facility] CARD Physician Progress Noteon 06-18-2023 [facility] CARD Physician Progress Note FADI POSADAS :1950 Registration Date:06/11/2023 Chief Complaint AFIB, CAD History of Present Illness Mr. Posadas is here for FUV for coronary artery disease s/p CABG, CVA, atrial fibrillation, hypertension and hyperlipidemia. Denies any chest pain, jaw pain, shoulder pain, palpitations, dizziness, lightheadedness. No shortness of breath. No swelling in ankles. stable. His blood pressure is good at 110/74. Remains on amlodipine & lisinopril. Remains with rate controlled afib on beta tavon. Physical Exam Vitals & Measurements Temperature Temporal (F): 97.7 degF (06/11/23 08:21:00) Apical Heart Rate: 66 bpm (06/11/23 08:21:00) Height/Length Measured: 175 cm (06/11/23 08:21:00) Weight Measured: 78 kg (06/11/23 08:21:00) Body Mass Index Measured: 25.47 kg/m2 (06/11/23 08:21:00) Weight Measured - lbs2: 171 lb (06/11/23 08:21:00) Height/Length Measured - in2: 69 in (06/11/23 08:21:00) Body Mass Index Measured English2: 25.25 kg/m2 (06/11/23 08:21:00) BSA: 1.94 m2 (06/11/23 08:21:00) Ht/Wt Measurement Refused by Patient?2: No (06/11/23 08:21:00) Depression Screening Scores No Depression Screening data available for this encounter. Fall Risk Assessment No Falls Risk Assessment data available for this encounter. NECK: JVP is not elevated. Good carotid pulses and no bruit. CVS: Normal heart sounds. No murmur and no gallop. No rub. LUNGS: No rhonchi and no wheeze. Clear breath sounds. ABDOMEN: Benign. EXTREMITIES: Good distal pulses. No edema of legs. Medication Reconciliation What How Much When Instructions Unchanged acetaminophen (Tylenol 325 mg oral capsule) 650 Milligram Nasogastric Tube EVERY SIX HOURS as needed for as needed for pain Contact prescribing physician if questions or concerns Unchanged amLODIPine (amLODIPine 10 mg oral tablet) 1 Tabs Oral DAILY Contact prescribing physician if questions or concerns Unchanged aspirin (aspirin 81 mg oral tablet, chewable) 1 Tabs Oral DAILY WITH BREAKFAST Contact prescribing physician if questions or concerns Unchanged atorvastatin (atorvastatin 40 mg oral tablet) 1 Tabs Oral DAILY Contact prescribing physician if questions or concerns Unchanged lisinopril (lisinopril 10 mg oral tablet) 1 Tabs Oral DAILY Contact prescribing physician if questions or concerns Unchanged metoprolol (metoprolol tartrate 25 mg oral tablet) 1 Tabs Oral TWICE A DAY Contact prescribing physician if questions or concerns Unchanged rivaroxaban (Xarelto 20 mg oral tablet) 1 Tabs Oral DAILY WITH EVENING MEAL Contact prescribing physician if questions or concerns Unchanged tamsulosin (Flomax 0.4 mg oral capsule) 2 Capsules Oral AT BEDTIME Contact prescribing physician if questions or concerns Assessment/Plan This Visit Diagnosis 1. CAD (coronary artery disease) I25.10 Stable on metoprolol, asa, lipitor. Ordered: 2. Atrial fibrillation I48.91 Rate controlled on metoprolol, xarelto. Ordered: 3. HTN (hypertension) I10 Well controlled on lisinopril, amlodipine & metoprolol. Ordered: 4. HLD (hyperlipidemia) E78.2 Remains on statins. Ordered: 5. S/p CABG (coronary artery bypass graft) Z95.1 Ordered: 6. CVA (cerebrovascular accident) I63.9 Continue current meds. Copy to MOLLY Baptiste. FUV in 6 months. Ordered: AMB Office/Outpt Est Pt Mod MDM / 30 min [id number], 06/11/2023 14:40:00 EDT, CAD (coronary artery disease) / Atrial fibrillation / HTN (hypertension) / HLD (hyperlipidemia) / S/p CABG (coronary artery bypass graft) / CVA (cerebrovascular accident) Problem List/Past Medical History Ongoing Atrial fibrillation CAD (coronary artery disease) Cerebrovascular accident (CVA) CVA (cerebrovascular accident) Dizziness Dyspnea HLD (hyperlipidemia) HLD (hyperlipidemia) HTN (hypertension) Low blood pressure Retinal disorder S/p CABG (coronary artery bypass graft) S/P CABG (coronary artery bypass graft) Vasovagal episode Procedure/Surgical History Cardioversion.: 11/03/16 Transesophageal Echocardiogram.: 11/03/16 Coronary Artery Bypass Graft (CABG).: 10/27/16 Coronary Angiograms.: 10/26/16 laser rt eye cardiac stents x2 Allergies penicillins childhood rxn -rash Social History Alcohol Use:Current Type:Beer Frequency:1-2 times per week Domestic Concerns Feels highly stressed:No *Requesting to speak to someone regarding stressNo Emotional Support AvailableYes CopingEffective *Patient's ResponsibilitiesDriving, Hobbies/Play/Sports, Housework, Laundry, Meal preparation, Yard work *Financial Concerns Regarding Hospitalization/DischargeNo Financial ConcernsNo *Requesting to speak to someone regarding financial concernsNo Concern for family members at home:No Major illness in household:No *Family/Friends available to help:Yes Exercise - Regular exercise Home/Environment Lives with:Spouse *Living Situation Prior to AdmissionHome/Independent (more content not included)... Normal [facility] Absolute lymphocyte countOrd ered By: Alfonso Baptiste on 05-11-2023 Lymphocytes Auto (Unsp spec) [#/Vol] 2.52 10*3/uL 0.83-4.51 [facility] Automated lymphocyte count a s percentage of total leukocytesOrdered By: Alfonso Baptiste on 05-11-2023 Lymphocytes/100 WBC Auto (Unsp spec) 33.4 % 19-41 [facility] Basophil percentageOrdered B y: Alfonso Baptiste on 05-11-2023 Basophils/100 WBC (Bld) 0.5 % 0-1 [facility] Bilirubin [Mass/Vol] 1.10 mg/dL 0.20-1.00 [facility] Comment on above: For patients on eltr ombopag therapy, use of Dimension [facility] TBIL is not recommended. Chloride [Moles/Vol] 104 mmol/L 98-107 [facility] Cholesterol [Mass/Vol] 114 mg/dL <200 [facility] Comment on above: <200 mg/dL Desirable 200-240 mg/dL Borderline >240 mg/dL High Risk Eosinophils/100 WBC (Bld) 0.7 % 0-5 [facility] Glucose [Mass/Vol] 102 mg/dL 74-106 [facility] Comment on above: Fasting Glucose resu lt from 100 to 125 mg/dL suggests IMPAIRED HOMEOSTASIS per A.D.A. criteria. Hemoglobin (Bld) [Mass/Vol] 13.3 g/dL 13.0-16.5 [facility] Monocytes/100 WBC (Bld) 6.2 % 0-10 [facility] Neutrophils (Bld) [#/Vol] 4.5 10*3/uL 2.0-7.7 [facility] Neutrophils/100 WBC (Bld) 59.1 % 47-70 [facility] Potassium [Moles/Vol] 3.9 mmol/L 3.5-5.1 [facility] Protein [Mass/Vol] 7.2 g/dL 6.4-8.2 [facility] Sodium [Moles/Vol] 138 mmol/L 136-145 [facility] Triglyceride [Mass/Vol] 102 mg/dL <199 [facility] Comment on above: The drugs N-Acetylcy steine and Metamizole may falsely depress this assay.Serum Triglycerides Reference Interval Normal <150 mg/dL Borderline high 150 - 199 mg/dL High 200 - 499 mg/dL Very High > or = 500 mg/dL WBC (Bld) [#/Vol] 7.5 10*3/uL 4.4-11.0 [facility] CBC W/Diff, Automatedon 04-26 Absolute Lymph 2.52 X10 3/uL Normal 0.83-4.51 [facility] Comment on above: Performed By: #### L 100.0100, L500.4100, L501.9910, L500.4050 #### [facility] [address] [place], [address] Absolute Neut 4.5 X10 3/uL Normal 2.0-7.7 [facility] Comment on above: Performed By: #### L 100.0100, L500.4100, L501.9910, L500.4050 #### [facility] [address] [place], [address] Basophils/100 WBC (Bld) 0.5 % Normal 0-1 [facility] Comment on above: Performed By: #### L 100.0100, L500.4100, L501.9910, L500.4050 #### [facility] [address] [place], [address] Eosinophils/100 WBC (Bld) 0.7 % Normal 0-5 [facility] Comment on above: Performed By: #### L 100.0100, L500.4100, L501.9910, L500.4050 #### [facility] [address] [place], [address] Erythrocyte distribution width (RBC) [Ratio] 13.1 % Normal 11.6-14.6 [facility] Comment on above: Performed By: #### L 100.0100, L500.4100, L501.9910, L500.4050 #### [facility] [address] [place], [address] Hematocrit (Bld) [Volume fraction] 39.9 % Low 40-54 [facility] Comment on above: Performed By: #### L 100.0100, L500.4100, L501.9910, L500.4050 #### [facility] [address] [place], [address] Hemoglobin (Bld) [Mass/Vol] 13.3 g/dL Normal 13.0-16.5 [facility] Comment on above: Performed By: #### L 100.0100, L500.4100, L501.9910, L500.4050 #### [facility] [address] [place], [address] IG% 0.100 Normal 0.0-0.9 [facility] Comment on above: Result Comment: IG% - Immature Granulocytes (promyelocytes, myelocytes and metamyelocytes) > 1% indicates that a LEFT SHIFT is Present. Performed By: #### L 100.0100, L500.4100, L501.9910, L500.4050 #### [facility] [address] [place], [address] Lymphocytes/100 WBC (Bld) 33.4 % Normal 19-41 [facility] Comment on above: Performed By: #### L 100.0100, L500.4100, L501.9910, L500.4050 #### [facility] [address] [place], [address] MCH (RBC) [Entitic mass] 31.4 pg Normal 27.0-32.0 [facility] Comment on above: Performed By: #### L 100.0100, L500.4100, L501.9910, L500.4050 #### [facility] [address] [place], [address] MCHC (RBC) [Mass/Vol] 33.3 g/dL Normal 32-36 [facility] Comment on above: Performed By: #### L 100.0100, L500.4100, L501.9910, L500.4050 #### [facility] [address] [place], [address] MCV (RBC) [Entitic vol] 94.1 fL High 80-94 [facility] Comment on above: Performed By: #### L 100.0100, L500.4100, L501.9910, L500.4050 #### [facility] [address] [place], [address] Monocytes/100 WBC (Bld) 6.2 % Normal 0-10 [facility] Comment on above: Performed By: #### L 100.0100, L500.4100, L501.9910, L500.4050 #### [facility] [address] [place], [address] Neutrophils/100 WBC (Bld) 59.1 % Normal 47-70 [facility] Comment on above: Performed By: #### L 100.0100, L500.4100, L501.9910, L500.4050 #### [facility] [address] [place], [address] Nucleated RBC (Bld) [#/Vol] 0 10*3/uL Normal 0-5 [facility] Comment on above: Performed By: #### L 100.0100, L500.4100, L501.9910, L500.4050 #### [facility] [address] [place], [address] Platelet mean volume (Bld) [Entitic vol] 10.8 fL Normal 6.2-12.0 [facility] Comment on above: Performed By: #### L 100.0100, L500.4100, L501.9910, L500.4050 #### [facility] [address] [place], [address] Platelets (Bld) [#/Vol] 201 10*3/uL Normal 150-450 [facility] Comment on above: Performed By: #### L 100.0100, L500.4100, L501.9910, L500.4050 #### [facility] [address] [place], [address] RBC (Bld) [#/Vol] 4.24 10*6/uL Low 4.6-6.2 [facility] Comment on above: Performed By: #### L 100.0100, L500.4100, L501.9910, L500.4050 #### [facility] [address] [place], [address] RDW SD 44.9 fl High 35.1-43.9 [facility] Comment on above: Performed By: #### L 100.0100, L500.4100, L501.9910, L500.4050 #### [facility] [address] [place], [address] WBC (Bld) [#/Vol] 7.5 10*3/uL Normal 4.4-11.0 [facility] Comment on above: Performed By: #### L 100.0100, L500.4100, L501.9910, L500.4050 #### [facility] [address] [place], [address] Comprehensive Metabolic Prof [facility] 05-11-2023 Albumin [Mass/Vol] 4.0 g/dL Normal 3.2-5.0 [facility] Comment on above: Performed By: #### L 100.0100, L500.4100, L501.9910, L500.4050 #### [facility] [address] [place], [address] Albumin/Globulin [Mass ratio] 1.2 {ratio} Normal 0.9-2.4 [facility] Comment on above: Performed By: #### L 100.0100, L500.4100, L501.9910, L500.4050 #### [facility] [address] [place], [address] ALK P 70 U/L Normal 45-117 [facility] Comment on above: Performed By: #### L 100.0100, L500.4100, L501.9910, L500.4050 #### [facility] [address] [place], [address] ALT [Catalytic activity/Vol] 50 U/L Normal 16-61 [facility] Comment on above: Performed By: #### L 100.0100, L500.4100, L501.9910, L500.4050 #### [facility] [address] [place], [address] AST [Catalytic activity/Vol] 27 U/L Normal 15-37 [facility] Comment on above: Performed By: #### L 100.0100, L500.4100, L501.9910, L500.4050 #### [facility] [address] [place], [address] Bilirubin [Mass/Vol] 1.10 mg/dL High 0.20-1.00 [facility] Comment on above: Result Comment: For patients on eltrombopag therapy, use of Dimension [facility] TBIL is not recommended. Performed By: #### L 100.0100, L500.4100, L501.9910, L500.4050 #### [facility] [address] [place], [address] BUN/CRE 14.2 RATIO Normal 10-20 [facility] Comment on above: Performed By: #### L 100.0100, L500.4100, L501.9910, L500.4050 #### [facility] [address] [place], [address] CA,Total 8.8 mg/dL Normal 8.5-10.1 [facility] Comment on above: Performed By: #### L 100.0100, L500.4100, L501.9910, L500.4050 #### [facility] [address] [place], [address] Chloride [Moles/Vol] 104 mmol/L Normal 98-107 [facility] Comment on above: Performed By: #### L 100.0100, L500.4100, L501.9910, L500.4050 #### [facility] [address] [place], [address] CO2 [Moles/Vol] 28.0 mmol/L Normal 21.0-32.0 [facility] Comment on above: Performed By: #### L 100.0100, L500.4100, L501.9910, L500.4050 #### [facility] [address] [place], [address] Creatinine [Mass/Vol] 1.41 mg/dL High 0.70-1.30 [facility] Comment on above: Result Comment: The validity of the calculated GFR GFRAA in patients over 70 years has not been determined. Clinical correlation is essential. Performed By: #### L 100.0100, L500.4100, L501.9910, L500.4050 #### [facility] [address] [place], [address] EST GFR - AA 64 mL/min Normal >60 [facility] Comment on above: Result Comment: Afri can Dutch GFR Calc Performed By: #### L 100.0100, L500.4100, L501.9910, L500.4050 #### [facility] [address] [place], [address] GAP 6 Normal 5-15 [facility] Comment on above: Performed By: #### L 100.0100, L500.4100, L501.9910, L500.4050 #### [facility] [address] [place], [address] GFR/1.73 sq M.predicted among non-blacks MDRD (S/P/Bld) [Vol rate/Area] 53 mL/min/{1.73_m2} Low >60 [facility] Comment on above: Result Comment: Non- GFR Calc Performed By: #### L 100.0100, L500.4100, L501.9910, L500.4050 #### [facility] [address] [place], [address] Globulin (S) [Mass/Vol] 3.2 g/dL Normal 2.2-4.2 [facility] Comment on above: Performed By: #### L 100.0100, L500.4100, L501.9910, L500.4050 #### [facility] [address] [place], [address] Glucose [Mass/Vol] 102 mg/dL Normal 74-106 [facility] Comment on above: Result Comment: Fast ing Glucose result from 100 to 125 mg/dL suggests IMPAIRED HOMEOSTASIS per A.D.A. criteria. Performed By: #### L 100.0100, L500.4100, L501.9910, L500.4050 #### [facility] [address] [place], [address] Potassium [Moles/Vol] 3.9 mmol/L Normal 3.5-5.1 [facility] Comment on above: Performed By: #### L 100.0100, L500.4100, L501.9910, L500.4050 #### [facility] [address] [place], [address] Sodium [Moles/Vol] 138 mmol/L Normal 136-145 [facility] Comment on above: Performed By: #### L 100.0100, L500.4100, L501.9910, L500.4050 #### [facility] [address] [place], [address] T PROT 7.2 g/dL Normal 6.4-8.2 [facility] Comment on above: Performed By: #### L 100.0100, L500.4100, L501.9910, L500.4050 #### [facility] [address] [place], [address] Urea nitrogen [Mass/Vol] 20 mg/dL High 7-18 [facility] Comment on above: Performed By: #### L 100.0100, L500.4100, L501.9910, L500.4050 #### [facility] [address] [place], [address] Determination of erythrocyte mean corpuscular volume (MCV)Ordered By: Alfonso Baptiste on 05-11-2023 MCV (RBC) [Entitic vol] 94.1 fL 80-94 [facility] Erythrocyte distribution wid th ratioOrdered By: Alfonso Baptiste on 05-11-2023 Erythrocyte distribution width (RBC) [Ratio] 13.1 % 11.6-14.6 [facility] Erythrocyte distribution wid th standard deviationOrdered By: Alfonso Baptiste on 05-11-2023 Erythrocyte distribution width (RBC) [Entitic vol] 44.9 fL 35.1-43.9 [facility] Hematocrit Auto (Bld) [Volum e fraction]Ordered By: Alfonso Baptiste on 05-11-2023 Hematocrit (Bld) [Volume fraction] 39.9 % 40-54 [facility] Immature granulocytes/100 WB C Auto (Bld)Ordered By: Alfonso Baptiste on 05-11-2023 Immature granulocytes/100 WBC (Bld) 0.100 % 0.0-0.9 [facility] Comment on above: IG% - Immature Granu locytes (promyelocytes, myelocytes and metamyelocytes) > 1% indicates that a LEFT SHIFT is Present. Laboratory - Chemistry and C hemistry - challengeOrdered By: Alfonso Baptiste on 05-11-2023 Albumin/Globulin [Mass ratio] 1.2 {ratio} 0.9-2.4 [facility] ALP [Catalytic activity/Vol] 70 U/L 45-117 [facility] ALT [Catalytic activity/Vol] 50 U/L 16-61 [facility] Cholesterol in HDL [Mass/Vol] 42 mg/dL >40 [facility] Comment on above: The drugs N-Acetylcy steine and Metamizole may falsely depress this assay. Reference Range HDL <40 mg/dL Low HDL Cholesterol HDL >or= 60 mg/dL High HDL Cholesterol Cholesterol in LDL [Mass/Vol] 52 mg/dL 0-130 [facility] CO2 [Moles/Vol] 28.0 mmol/L 21.0-32.0 [facility] Globulin (S) [Mass/Vol] 3.2 g/dL 2.2-4.2 [facility] Urea nitrogen/Creatinine [Mass ratio] 14.2 mg/mg 10-20 [facility] - Hematology and Cell countsOrdered By: Alfonso Baptiste on 05-11-2023 MCH (RBC) [Entitic mass] 31.4 pg 27.0-32.0 [facility] MCHC (RBC) [Mass/Vol] 33.3 g/dL 32-36 [facility] Nucleated RBC/100 WBC (Bld) [Ratio] 0 % 0-5 [facility] Platelet mean volume (Bld) [Entitic vol] 10.8 fL 6.2-12.0 [facility] Platelets (Bld) [#/Vol] 201 10*3/uL 150-450 [facility] Lipid Profileon 05-11-2023 Cholesterol [Mass/Vol] 114 mg/dL Normal 200 [facility] Comment on above: Result Comment: <200 mg/dL Desirable 200-240 mg/dL Borderline >240 mg/dL High Risk Performed By: #### L 100.0100, L500.4100, L501.9910, L500.4050 #### [facility] [address] [place], [address] Cholesterol in HDL [Mass/Vol] 42 mg/dL Normal [facility] Comment on above: Result Comment: The drugs N-Acetylcysteine and Metamizole may falsely depress this assay. Reference Range HDL <40 mg/dL Low HDL Cholesterol HDL >or= 60 mg/dL High HDL Cholesterol Performed By: #### L 100.0100, L500.4100, L501.9910, L500.4050 #### [facility] [address] [place], [address] Cholesterol in LDL [Mass/Vol] 52 mg/dL Normal 0-130 [facility] Comment on above: Performed By: #### L 100.0100, L500.4100, L501.9910, L500.4050 #### [facility] [address] [place], [address] Cholesterol in VLDL [Mass/Vol] 20 mg/dL Normal 5-40 [facility] Comment on above: Performed By: #### L 100.0100, L500.4100, L501.9910, L500.4050 #### [facility] [address] [place], [address] Triglyceride [Mass/Vol] 102 mg/dL Normal [facility] Comment on above: Result Comment: The drugs N-Acetylcysteine and Metamizole may falsely depress this assay. Serum Triglycerides Reference Interval Normal <150 mg/dL Borderline high 150 - 199 mg/dL High 200 - 499 mg/dL Very High > or = 500 mg/dL Performed By: #### L 100.0100, L500.4100, L501.9910, L500.4050 #### [facility] [address] [place], [address] No Panel InformationOrdered By: Alfonso Baptiste on 05-11-2023 Estimated GFR (MDRD) Amer 64 mL/min >60 [facility] Comment on above: GFR Calc Estimated GFR (MDRD) Non-Af Amer 53 mL/min >60 [facility] Comment on above: Non- GFR Calc Prostate Specific Antigen Screen 4.47 ng/mL 0.00-4.00 [facility] Comment on above: This test was perfor med using the TPSA assay method for theedulio chemistry system. Values obtained with differentassay methods cannot be used interchangably.When changing PSA assays in the course of monitoring apatient, additional sequential testing should be carriedout to confirm baseline values. VLDL Cholesterol 20 mg/dL 5-40 [facility] PSA,Total - Annual Screenon 05-11-2023 PSA,TOT SCREEN 4.47 ng/mL High 0.00-4.00 [facility] Comment on above: Result Comment: This test was performed using the TPSA assay method for the edulio chemistry system. Values obtained with different assay methods cannot be used interchangably. When changing PSA assays in the course of monitoring a patient, additional sequential testing should be carried out to confirm baseline values. Performed By: #### L 100.0100, L500.4100, L501.9910, L500.4050 #### [facility] [address] [place], [address] RBC Auto (Bld) [#/Vol]Ordere d By: Alfonso Baptiste on 05-11-2023 RBC (Bld) [#/Vol] 4.24 10*6/uL 4.6-6.2 [facility] Serum or plasma calcium kirsty urement (mass/volume)Ordered By: Alfonso Baptiste on 05-11-2023 Calcium [Mass/Vol] 8.8 mg/dL 8.5-10.1 [facility] Serum or plasma creatinine m easurement (mass/volume)Ordered By: Alfonso Baptiste on 05-11-2023 Creatinine [Mass/Vol] 1.41 mg/dL 0.70-1.30 [facility] Comment on above: The validity of the calculated GFR & GFRAA in patients over 70 years has not been determined. Clinical correlation is essential. Serum or plasma urea nitroge n measurement (mass/volume)Ordered By: Alfonso Baptiste on 05-11-2023 Urea nitrogen [Mass/Vol] 20 mg/dL 7-18 [facility] Thin prep Papanicolaou smear with manual screeningOrdered By: Alfonso Baptiste on 05-11-2023 Thin prep Papanicolaou smear with manual screening 4.0 g/dL 3.2-5.0 [facility] Thin prep Papanicolaou smear with manual screening 27 U/L 15-37 [facility] Thin prep Papanicolaou smear with manual screening 6 5-15 [facility] No Panel InformationOrdered By: Alfonso Baptiste on 12-19-2022 Free Prostate Specific Antigen 0.75 ng/mL N/A [facility] Comment on above: Aileen ECLIA methodol ogy. Percent Free Prostate Specific Ag 18.3 % . [facility] Comment on above: The table below list s the probability of prostate cancer formen with non-suspicious LIU results and total PSA between4 and 10 ng/mL, by patient age (Louie et al, CATHERINE 1998,279:1542). % Free PSA 50-64 yr 65-75 yr 0.00-10.00% 56% 55% 10.01-15.00% 24% 35% 15.01-20.00% 17% 23% 20.01-25.00% 10% 20% >25.00% 5% 9%Please note: Louie et al did not make specific recommendations regarding the use of percent free PSA for any other population of men. Prostate Specific Antigen Comment . [facility] Comment on above: The percent free PSA is performed on a reflex basis onlywhen the total PSA is between 4.0 and 10.0 ng/mL.Performed at: [address] [id number] Director: Robbie Mullgian PhD, Phone: [phone] Prostate Specific Antigen Total 4.1 ng/mL 0.0-4.0 [facility] Comment on above: [employer]trot ECLIA methodol ogy.According to the [place] [employer], Serum PSAshould decrease and remain at undetectable levels afterradical prostatectomy. The AUA defines biochemicalrecurrence as an initial PSA value 0.2 ng/mL or greaterfollowed by a subsequent confirmatory PSA value 0.2 ng/mLor greater. Values obtained with different assay methods orkits cannot be used interchangeably. Results cannot beinterpreted as absolute evidence of the presence or absenceof malignant disease. Absolute lymphocyte countOrd ered By: Alfonso Baptiste on 04-11-2022 Lymphocytes Auto (Unsp spec) [#/Vol] 2.62 10*3/uL 0.83-4.51 [facility] Basophil percentageOrdered B y: Alfonso Baptiste on 04-11-2022 Basophils/100 WBC (Bld) 0.3 % 0-1 [facility] Bilirubin [Mass/Vol] 1.00 mg/dL 0.20-1.00 [facility] Comment on above: For patients on eltr ombopag therapy, use of [facility]ension [facility] TBIL is not recommended. Chloride [Moles/Vol] 103 mmol/L 98-107 [facility] Cholesterol [Mass/Vol] 108 mg/dL <200 [facility] Comment on above: <200 mg/dL Desirable 200-240 mg/dL Borderline >240 mg/dL High Risk Eosinophils/100 WBC (Bld) 1.3 % 0-5 [facility] Glucose [Mass/Vol] 112 mg/dL 74-106 [facility] Comment on above: Fasting Glucose resu lt from 100 to 125 mg/dL suggests IMPAIRED HOMEOSTASIS per A.D.A. criteria. Neutrophils (Bld) [#/Vol] 3.0 10*3/uL 2.0-7.7 [facility] Neutrophils/100 WBC (Bld) 47.8 % 47-70 [facility] Potassium [Moles/Vol] 3.9 mmol/L 3.5-5.1 [facility] Protein [Mass/Vol] 7.4 g/dL 6.4-8.2 [facility] Sodium [Moles/Vol] 138 mmol/L 136-145 [facility] Triglyceride [Mass/Vol] 183 mg/dL <199 [facility] Comment on above: The drugs N-Acetylcy steine and Metamizole may falsely depress this assay.Serum Triglycerides Reference Interval Normal <150 mg/dL Borderline high 150 - 199 mg/dL High 200 - 499 mg/dL Very High > or = 500 mg/dL WBC (Bld) [#/Vol] 6.3 10*3/uL 4.4-11.0 [facility] Blood erythrocytes count (nu mber/volume)Ordered By: Alfonso Baptiste on 04-11-2022 RBC (Bld) [#/Vol] 4.28 10*6/uL 4.6-6.2 [facility] Blood hemoglobin measurement (mass/volume)Ordered By: Alfonso Baptiste on 04-11-2022 Hemoglobin (Bld) [Mass/Vol] 13.5 g/dL 13.0-16.5 [facility] Blood lymphocytes/100 leukoc ytesOrdered By: Alfonso Baptiste on 04-11-2022 Lymphocytes/100 WBC (Bld) 41.9 % 19-41 [facility] Blood monocytes/100 leukocyt esOrdered By: Alfonso Baptiste on 04-11-2022 Monocytes/100 WBC (Bld) 8.5 % 0-10 [facility] Blood platelet mean volumeOr dered By: Alfonso Baptiste on 04-11-2022 Platelet mean volume (Bld) [Entitic vol] 11.7 fL 6.2-12.0 [facility] Determination of erythrocyte mean corpuscular volume (MCV)Ordered By: Alfonso Baptiste on 04-11-2022 MCV (RBC) [Entitic vol] 94.2 fL 80-94 [facility] Hematocrit Auto (Bld) [Volum e fraction]Ordered By: Alfonso Baptiste on 04-11-2022 Hematocrit (Bld) [Volume fraction] 40.3 % 40-54 [facility] - Chemistry and C hemistry - challengeOrdered By: Alfonso Baptiste on 04-11-2022 ALP [Catalytic activity/Vol] 78 U/L 45-117 [facility] ALT [Catalytic activity/Vol] 47 U/L 16-61 [facility] CO2 [Moles/Vol] 29.0 mmol/L 21.0-32.0 [facility] Globulin (S) [Mass/Vol] 3.4 g/dL 2.2-4.2 [facility] Urea nitrogen/Creatinine [Mass ratio] 13.4 mg/mg 10-20 [facility] - Hematology and Cell countsOrdered By: Alfonso Baptiste on 04-11-2022 Erythrocyte distribution width (RBC) [Entitic vol] 42.7 fL 35.1-43.9 [facility] Erythrocyte distribution width (RBC) [Ratio] 12.3 % 11.6-14.6 [facility] Immature granulocytes/100 WBC (Bld) 0.200 % 0.0-0.9 [facility] Comment on above: IG% - Immature Granu locytes (promyelocytes, myelocytes and metamyelocytes) > 1% indicates that a LEFT SHIFT is Present. MCH (RBC) [Entitic mass] 31.5 pg 27.0-32.0 [facility] Nucleated RBC/100 WBC (Bld) [Ratio] 0 % 0-5 [facility] MCHC Auto (RBC) [Mass/Vol]Or dered By: Alfonso Baptiste on 04-11-2022 MCHC (RBC) [Mass/Vol] 33.5 g/dL 32-36 [facility] No Panel InformationOrdered By: Alfonso Baptiste on 04-11-2022 Estimated GFR (MDRD) Amer 72 mL/min >60 [facility] Comment on above: GFR Calc Estimated GFR (MDRD) Non-Af Amer 60 mL/min >60 [facility] Comment on above: Non- GFR Calc Prostate Specific Antigen Screen 7.88 ng/mL 0.00-4.00 [facility] Comment on above: This test was perfor med using the TPSA assay method for theedulio chemistry system. Values obtained with differentassay methods cannot be used interchangably.When changing PSA assays in the course of monitoring apatient, additional sequential testing should be carriedout to confirm baseline values. Platelets bldOrdered By: Lavon Baptiste on 04-11-2022 Platelets (Bld) [#/Vol] 181 10*3/uL 150-450 [facility] Serum or plasma albumin kirsty urement (mass/volume)Ordered By: Alfonso Baptiste on 04-11-2022 Albumin [Mass/Vol] 4.0 g/dL 3.2-5.0 [facility] Serum or plasma albumin/glob ulin mass ratioOrdered By: Alfonso Baptiste on 04-11-2022 Albumin/Globulin [Mass ratio] 1.2 {ratio} 0.9-2.4 [facility] Serum or plasma calcium kirsty urement (mass/volume)Ordered By: Alfonso Baptiste on 04-11-2022 Calcium [Mass/Vol] 8.9 mg/dL 8.5-10.1 [facility] Serum or plasma cholesterol in HDL measurement (mass/volume)Ordered By: Alfonso Baptiste on 04-11-2022 Cholesterol in HDL [Mass/Vol] 30 mg/dL >40 [facility] Comment on above: The drugs N-Acetylcy steine and Metamizole may falsely depress this assay. Reference Range HDL <40 mg/dL Low HDL Cholesterol HDL >or= 60 mg/dL High HDL Cholesterol Serum or plasma cholesterol in VLDL measurement (mass/volume)Ordered By: Alfonso Baptiste on 04-11-2022 Cholesterol in VLDL [Mass/Vol] 37 mg/dL 5-40 [facility] Serum or plasma creatinine m easurement (mass/volume)Ordered By: Alfonso Baptiste on 04-11-2022 Creatinine [Mass/Vol] 1.27 mg/dL 0.70-1.30 [facility] Comment on above: The validity of the calculated GFR & GFRAA in patients over 70 years has not been determined. Clinical correlation is essential. Serum or plasma low density lipoprotein (LDL) cholesterol measurement (mass/volume)Ordered By: Alfonso Baptiste on 04-11-2022 Cholesterol in LDL [Mass/Vol] 41 mg/dL 0-130 [facility] Serum or plasma urea nitroge n measurement (mass/volume)Ordered By: Alfonso Baptiste on 04-11-2022 Urea nitrogen [Mass/Vol] 17 mg/dL 7-18 [facility] Thin prep Papanicolaou smear with manual screeningOrdered By: Alfonso Baptiste on 04-11-2022 Thin prep Papanicolaou smear with manual screening 28 U/L 15-37 [facility] Thin prep Papanicolaou smear with manual screening 6 5-15 [facility] No Panel InformationOrdered By: Alfonso Baptiste on 01-06-2022 Prostate Specific Antigen Total 6.58 ng/mL 0.0-4.0 [facility] Comment on above: This test was perfor med using the TPSA assay method for theVopium chemistry system. Values obtained with differentassay methods cannot be used interchangably.When changing PSA assays in the course of monitoring apatient, additional sequential testing should be carriedout to confirm baseline values. Basophil percentageon 2021 Creatinine [Mass/Vol] 0.6 mg/dL 0.70-1.30 [facility] Work Phone: No Panel Informationon 05-24 Bedside Estimated GFR (eGFR) > 60.0000 mL/min >60 [facility] Work Phone: Absolute lymphocyte counton 04-19-2021 Lymphocytes Auto (Unsp spec) [#/Vol] 2.52 10*3/uL 0.83-4.51 [facility] Work Phone: [phone] Basophil percentageon 2021 Basophils/100 WBC (Bld) 0.6 % 0-1 [facility] Work Phone: [phone] Bilirubin [Mass/Vol] 0.90 mg/dL 0.20-1.00 [facility] Work Phone: Comment on above: For patients on eltr ombopag therapy, use of [facility] TBIL is not recommended. Chloride [Moles/Vol] 103 mmol/L 98-107 [facility] Work Phone: Cholesterol [Mass/Vol] 144 mg/dL <200 [facility] Work Phone: [phone] Comment on above: <200 mg/dL Desirable 200-240 mg/dL Borderline >240 mg/dL High Risk Eosinophils/100 WBC (Bld) 1.6 % 0-5 [facility] Work Phone: [phone] Glucose [Mass/Vol] 89 mg/dL 74-106 [facility] Work Phone: [phone] Neutrophils (Bld) [#/Vol] 3.3 10*3/uL 2.0-7.7 [facility] Work Phone: [phone] Neutrophils/100 WBC (Bld) 51.0 % 47-70 [facility] Work Phone: [phone] Potassium [Moles/Vol] 4.1 mmol/L 3.5-5.1 [facility] Work Phone: [phone] Protein [Mass/Vol] 7.4 g/dL 6.4-8.2 [facility] Work Phone: [phone] Sodium [Moles/Vol] 138 mmol/L 136-145 [facility] Work Phone: Triglyceride [Mass/Vol] 98 mg/dL [facility] Work Phone: Comment on above: The drugs N-Acetylcy steine and Metamizole may falsely depress this assay.Serum Triglycerides Reference Interval Normal <150 mg/dL Borderline high 150 - 199 mg/dL High 200 - 499 mg/dL Very High > or = 500 mg/dL WBC (Bld) [#/Vol] 6.4 10*3/uL 4.4-11.0 [facility] Work Phone: Blood erythrocytes count (nu mber/volume)on 04-19-2021 RBC (Bld) [#/Vol] 4.28 10*6/uL 4.6-6.2 [facility] Work Phone: Blood hemoglobin measurement (mass/volume)on 04-19-2021 Hemoglobin (Bld) [Mass/Vol] 13.4 g/dL 13.0-16.5 [facility] Work Phone: Blood lymphocytes/100 leukoc yteson 04-19-2021 Lymphocytes/100 WBC (Bld) 39.3 % 19-41 [facility] Work Phone: Blood monocytes/100 leukocyt eson 04-19-2021 Monocytes/100 WBC (Bld) 7.3 % 0-10 [facility] Work Phone: Blood platelet mean volumeon 04-19-2021 Platelet mean volume (Bld) [Entitic vol] 11.0 fL 6.2-12.0 [facility] Work Phone: Determination of erythrocyte mean corpuscular volume (MCV)on 04-19-2021 MCV (RBC) [Entitic vol] 93.9 fL 80-94 [facility] Work Phone: Hematocrit Auto (Bld) [Volum e fraction]on 04-19-2021 Hematocrit (Bld) [Volume fraction] 40.2 % 40-54 [facility] Work Phone: Laboratory - Chemistry and C hemistry - challengeon 04-19-2021 ALP [Catalytic activity/Vol] 79 U/L 45-117 [facility] Work Phone: ALT [Catalytic activity/Vol] 96 U/L 16-61 [facility] Work Phone: CO2 [Moles/Vol] 28.0 mmol/L 21.0-32.0 [facility] Work Phone: [phone] Globulin (S) [Mass/Vol] 3.3 g/dL 2.2-4.2 [facility] Work Phone: [phone] Urea nitrogen/Creatinine [Mass ratio] 15.2 mg/mg 10-20 [facility] Work Phone: Laboratory - Hematology and Cell countson 04-19-2021 Erythrocyte distribution width (RBC) [Entitic vol] 44.5 fL 35.1-43.9 [facility] Work Phone: [phone] Erythrocyte distribution width (RBC) [Ratio] 12.9 % 11.6-14.6 [facility] Work Phone: [phone] Immature granulocytes/100 WBC (Bld) 0.200 % 0.0-0.9 [facility] Work Phone: [phone] Comment on above: IG% - Immature Granu locytes (promyelocytes, myelocytes and metamyelocytes) > 1% indicates that a LEFT SHIFT is Present. MCH (RBC) [Entitic mass] 31.3 pg 27.0-32.0 [facility] Work Phone: [phone] Nucleated RBC/100 WBC (Bld) [Ratio] 0 % 0-5 [facility] Work Phone: [phone] MCHC Auto (RBC) [Mass/Vol]on 04-19-2021 MCHC (RBC) [Mass/Vol] 33.3 g/dL 32-36 [facility] Work Phone: No Panel Informationon 04-19 Estimated GFR (MDRD) Amer 90 mL/min >60 [facility] Work Phone: Comment on above: GFR Calc Estimated GFR (MDRD) Non-Af Amer 74 mL/min >60 [facility] Work Phone: Comment on above: Non- GFR Calc Prostate Specific Antigen Total 12.90 ng/mL 0.0-4.0 [facility] Work Phone: Comment on above: This test was perfor med using the TPSA assay method for theedulio chemistry system. Values obtained with differentassay methods cannot be used interchangably.When changing PSA assays in the course of monitoring apatient, additional sequential testing should be carriedout to confirm baseline values. Platelets bldon 04-19-2021 Platelets (Bld) [#/Vol] 198 10*3/uL 150-450 [facility] Work Phone: Serum or plasma albumin kirsty urement (mass/volume)on 04-19-2021 Albumin [Mass/Vol] 4.1 g/dL 3.2-5.0 [facility] Work Phone: Serum or plasma albumin/glob ulin mass ratioon 04-19-2021 Albumin/Globulin [Mass ratio] 1.2 {ratio} 0.9-2.4 [facility] Work Phone: Serum or plasma calcium kirsty urement (mass/volume)on 04-19-2021 Calcium [Mass/Vol] 9.5 mg/dL 8.5-10.1 [facility] Work Phone: Serum or plasma cholesterol in HDL measurement (mass/volume)on 04-19-2021 Cholesterol in HDL [Mass/Vol] 46 mg/dL [facility] Work Phone: Comment on above: The drugs N-Acetylcy steine and Metamizole may falsely depress this assay. Reference Range HDL <40 mg/dL Low HDL Cholesterol HDL >or= 60 mg/dL High HDL Cholesterol Serum or plasma cholesterol in VLDL measurement (mass/volume)on 04-19-2021 Cholesterol in VLDL [Mass/Vol] 20 mg/dL 5-40 [facility] Work Phone: Serum or plasma creatinine m easurement (mass/volume)on 04-19-2021 Creatinine [Mass/Vol] 1.05 mg/dL 0.70-1.30 [facility] Work Phone: Comment on above: The validity of the calculated GFR & GFRAA in patients over 70 years has not been determined. Clinical correlation is essential. Serum or plasma low density lipoprotein (LDL) cholesterol measurement (mass/volume)on 04-19-2021 Cholesterol in LDL [Mass/Vol] 78 mg/dL 0-130 [facility] Work Phone: Serum or plasma urea nitroge n measurement (mass/volume)on 04-19-2021 Urea nitrogen [Mass/Vol] 16 mg/dL 7-18 [facility] Work Phone: Thin prep Papanicolaou smear with manual screeningon 04-19-2021 Thin prep Papanicolaou smear with manual screening 51 U/L 15-37 [facility] Work Phone: Thin prep Papanicolaou smear with manual screening 7 5-15 [facility] Work Phone: PROGRESSon 05-24-2017 PROGRESS HNO ID: [id number] Author: Que Cohen-[facility] Service: (none) Author Type: (none) Type: Progress Notes Filed: 05/24/2017 10:13 AM Note Text: Noted Encounter now closed. Normal [facility] CNPTOUTREACHon 05-16-2017 CNPTOUTREACH Patient Outreach (INTMBR) -------FADI POSADAS ([id number]) 1950 MDate Time Provider Department05/16/17 QUE PEDERSON) INTMBR During your visit today, we recorded the following information about you:Que Cohen-[facility] 05/24/2017 10:13 AM Signed PHMN TEAMLET DOCUMENTATIONProvider Action/FYI:Patient has not been seen in office since 11/14/2012. Per PCP remove from PCPlist.PSR Action/FYI:Cornelius has identified patient by name and date of .Team: Dr. Crowley, Diana, MA; Riddhi Kimball RN and TRAV Enrique? Last Office Visit:11/14/2012? Next Office Visit: Visit date not found? Last BP/Labs:Blood Pressure:Last 3 Encounter BP Readings: Date: BP: 11/16/2016 143/83 11/14/2012 176/92 11/30/2011 128/84Lipids:Cholesterol, Total (mg/dL)Date Value08/29/2011 7593002/09/2011 209 HDL Cholesterol (mg/dL)Date Value08/29/2011 39104/12/2010 47 LDL Cholesterol (mg/dL)Date Value08/29/2011 140 LDL Calculated (mg/dL)Date Value02/09/2011 0923605/28/2008 82 Triglyceride (mg/dL)Date Value08/29/2011 9149002/09/2011 92 HGB A1C:No results found for: OGT4LWWE:TSH (uU/mL)Date Value08/29/2011 3. 5.310 )Care Gap: CVD - Needs Lipid panel, has not had one in the last year.No PCP appointment in last yearPlan:Remove PCP name from recordRouting encounter to PCP to approve removal of PCP from record.Que MedranoDepartment [facility]Kip Barry MD 05/24/2017 10:13 AM SignedANDgt;ANDgt;ANDgt; The notes/labs/tests related to this encounter have been reviewed.ANDgt;ANDgt;ANDgt; .I concurQue MedranoDepartment [facility] 05/24/2017 10:13 AM SignedNotedEncounter now closed.Allergies As of Date: 05/16/2017 Noted Allergy ReactionPENICILLINS 08/09/2009Date Reviewed: 11/17/2016Reviewed by: Mayco Kerr) HEATH Martinez - Fully AssessedReason for Visit: PHMN/Care Gap Outreach [3605] Cmt: Remove PCP from record no visit since 11/14/2012Prescriptions as of 05/16/2017 Sig: ASPIRIN 81 MG [...] * Take by mouth daily * OMEGA 5-NHT-UPX-FISH OIL 1,00* Take one by mouth daily * UBIDECARENONE-OMEGA 3-VIT E 5* Take by mouth daily * RESVERATROL 100 MG CAPSULE 37.5mg daily * CALCIUM 500 MG TABLET Take 1 tablet by mouth twice *Problem List As Of Date 05/16/2017 Noted Resolved CAD (Coronary Artery Disease) [I25.10] Hyperlipidemia [E78.5] HTN (Hypertension) [I10] Status:Closed by QUE PHAN on 05/24/17 [facility] PROGRESSon 05-16-2017 PROGRESS HNO ID: [id number] Author: Kip Barry Service: (none) Author Type: Physician Type: Progress Notes Filed: 05/24/2017 10:13 AM Note Text: >>> The notes/labs/tests related to this encounter have been reviewed. >>>. I concur [facility] PROGRESS HNO ID: [id number] thor: Que SherwoodService: (none)Author Type: (none)Type: Progress NotesFiled: 05/24/2017 10:13 AMNote Text: PHMA TEAMLET DOCUMENTATIONProvider Action/FYI:Patient has not been seen in office since 11/14/2012. Per PCP remove fromPCP list.PSR Action/FYI:Cornelius has identified patient by name and date of .Team: Diana Pereira MA; Riddhi Kimball RN and TRAV Enrique? Last Office Visit:11/14/2012? Next Office Visit: Visit date not found? Last BP/Labs:Blood Pressure:Last 3 Encounter BP Readings: Date: BP: 11/16/2016 143/83 11/14/2012 176/92 11/30/2011 128/84Lipids:Cholesterol, Total (mg/dL)Date Value08/29/2011 209 HDL Cholesterol (mg/dL)Date Value08/29/2011 39104/12/2010 47 LDL Cholesterol (mg/dL)Date Value08/29/2011 140 LDL Calculated (mg/dL)Date Value02/09/2011 0206205/28/2008 82 Triglyceride (mg/dL)Date Value08/29/2011 1631702/09/2011 92 HGB A1C:No results found for: TTT5VQEW:TSH (uU/mL)Date Value08/29/2011 3. 5.310 )Care Gap: CVD - Needs Lipid panel, has not had one in the last year.No PCP appointment in last yearPlan:Remove PCP name from recordRouting encounter to PCP to approve removal of PCP from record.Que Pederson Nr-Entry Level Assistant Manager Normal [facility] CBC AND DIFFERENTIALon 01-16 % AUTOMATED IMMATURE GRAN 0.3 % Normal 0.0 - 0.9 [facility] Comment on above: Result Comment: Perc ent differential counts (%) should be interpreted in the context of the absolute cell counts (cells/L). Performed By: #### G SANDY ####[facility] [place] [address] % NEUTROPHIL 73.1 % Normal 40.0 - 80.0 [facility] Comment on above: Performed By: #### G SANDY ####[facility] [place] [address] Basophils/100 WBC Auto (Bld) 0.01 x10E9/L Normal 0.00 - 0.10 [facility] Comment on above: Performed By: #### G SANDY ####[facility] [place] [address] Basophils/100 WBC Auto (Bld) 0.1 % Normal 0.0 - 2.0 [facility] Comment on above: Performed By: #### G SANDY ####[facility] [place] [address] Eosinophils 0.19 10*3/uL Normal 0.00 - 0.70 [facility] Comment on above: Performed By: #### G SANDY ####[facility] [place] [address] Eosinophils/100 leukocytes 2.2 % Normal 0.0 - 6.0 [facility] Comment on above: Performed By: #### G SANDY ####[facility] [place] [address] Erythrocyte distribution width Auto Ratio (RBC) 14.0 % Normal 11.5 - 14.5 [facility] Comment on above: Performed By: #### G SANDY ####[facility] [place] [address] Erythrocytes (RBC) 3.86 x10E12/L Low 4.50 - 5.90 [facility] Comment on above: Performed By: #### G SANDY ####[facility] [place] [address] Hematocrit (HCT) 33.4 % Low 41.0 - 52.0 [facility] Comment on above: Performed By: #### G SANDY ####[facility] [place] [address] Hemoglobin mass conc (Bld) 10.4 g/dL Low 13.5 - 17.5 [facility] Comment on above: Performed By: #### G SANDY ####[facility] [place] [address] Lymphocytes 1.52 10*3/uL Normal 1.20 - 4.80 [facility] Comment on above: Performed By: #### G SANDY ####[facility] [place] [address] Lymphocytes/100 leukocytes 17.7 % Normal 13.0 - 44.0 [facility] Comment on above: Performed By: #### G SANDY ####[facility] [place] [address] MCHC mass conc (RBC) 31.1 g/dL Low 32.0 - 36.0 [facility] Comment on above: Performed By: #### G SANDY ####[facility] [place] [address] MCV 87 fL Normal 80 - 100 [facility] Comment on above: Performed By: #### Yvette SANDY ####[facility] [place] [address] Monocytes 0.57 10*3/uL Normal 0.10 - 1.00 [facility] Comment on above: Performed By: #### G SANDY ####[facility] [place] [address] Monocytes/100 leukocytes 6.6 % Normal 2.0 - 10.0 [facility] Comment on above: Performed By: #### G SANDY ####[facility] [place] [address] Neutrophils 6.28 10*3/uL Normal 1.20 - 7.70 [facility] Comment on above: Performed By: #### G SANDY ####[facility] [place] [address] Nucleated erythrocytes 0.0 /100 WBC Normal 0.0-0.0 [facility] Comment on above: Performed By: #### G SANDY ####[facility] [place] [address] Platelets 274 10*3/uL Normal 150 - 450 [facility] Comment on above: Performed By: #### G SANDY ####[facility] [place] [address] WBC (Leukocytes) 8.6 10*3/uL Normal 4.4 - 11.3 [facility] Comment on above: Performed By: #### G SANDY ####[facility] [place] [address] COAGULATION SCREENon 017 aPTT 26 s Normal 25 - 36 [facility] Comment on above: Result Comment: THE APTT IS NO LONGER USED FOR MONITORING UNFRACTIONATED HEPARIN THERAPY. FOR MONITORING HEPARIN THERAPY, USE THE HEPARIN ASSAY. Performed By: #### C BC ####[facility] [place] [address] INR Coag RelTime (PPP) 1.1 {INR} Normal 0.9 - 1.1 [facility] Comment on above: Performed By: #### C BC ####[facility] [place] [address] Prothrombin time (PT) Coag time (PPP) 11.9 s Normal 9.8 - 12.7 [facility] Comment on above: Performed By: #### C BC ####[facility] [place] [address] Discharge Summaryon 01-17-20 Discharge Summary Send Summary:Dischar ge Summary Providers:Provider Role Provider Name? 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, Paroxysmal atrial fibrillation,Procedures: Date: 12-Jan-2017 15:20:00Procedure Name: Right subclavian CVCCondition at Discharge: SatisfactoryDisposition at Discharge: Rehab Facility or UnitVital Signs: T P R BP WmU1Hthyl 36.6 71 16 134/69 96%Date/Time 01/16 4:00 01/16 6:00 01/16 6:00 01/16 6:00 216:00Range (36.4C - 37.1C ) (60 - 73 ) (10 - 19 ) (117 - 166 )/(69 - 90 ) (96%- 99% )Highest temp of 37.1 C was recorded at 01/15 20:00Physical Exam:Constitutional: AAOx3, NADRespiratory/Thorax: CTABCardiovascular: RRR, no m/r/gNeurological: Awake, AANDOx3, mild R ptosis, hoarse voice, strength 5/5throughout, sensation intact to light touch throughout, mild RUE/RLE ataxiaHospital Course:Mr. Fadi Posadas is 66 yo M with PMHx of CAD s/p 3 vessel CABG 10/27/16, HTN,HLD, Afib/Aflutter on Xarelto s/p successful cardioversion 10/2016, h/o R CRAOresidual R field cut, ex-smoker (quit 30 years prior) [facility] to cerebellar infarct with cerebral edema andmass effect effacing the 4th ventricle. MRI showed acute R cerebellar infarct,MRA showed severe atherosclerotic disease of posterior circulation. R vert andbasilar absent and minimal L vert artery on 01/03. Repeat MRI 01/11 largerinfarct also including R ICP and R lateral medulla.Patient's anticoagulation was held due to large infarct and risk of hemorrhagictransformation, will need to readdress as an outpatient after a couple weeks.For now patient will be treated with ASA 81mg and atorva 40mg. Patient was alsorestarted on his home lisinopril, amlodipine, and clonidine; however, as itcannot be crushed and placed through NG tube, his extended release diltiazemwas held and will be restarted when he passes swallow eval. PT/OT recommendedacute rehab. Patient did not pass swallow evaluation by FACILITIES OFFICER (including FEES),though was very close to passing, so no PEG tube indicated at this time. Willdischarge to rehab with dobhoff in place and FACILITIES OFFICER will continue to re-evaluate.Patient also required verduzco for urine retention due to increased posteriorcirculation swelling; recommending verduzco be left in place until 01/19/17 and atrial of void be attempted. If patient does not pass, can either re-insertfoley or intermittent straight cath based off patient preference. Patient wasdischarged to rehab in stable condition.Discharge NIHSS:Level of Consciousness: 0 = alertLOC Question: 0 = both correctLOC Commands: 0 = obeys bothBest Gaze: 0 = normalVisual Field: 0 = no visual lossFacial Paresis: 0 = normalLeft Upper Extremity: 0 = no drift; 10 secondsRight Upper Extremity: 0 = no drift; 10 secondsDysarthria: 0 = normalLeft Lower Extremity: 0 = no drift; 5 secondsRight Lower Extremity: 0 = no drift; 5 secondsBest Language: 0 = no aphasiaLimb Ataxia: 2 = present 2 limbsSensory: 0 = absentNeglect: 0 = noneNIHSS Score: 2Discharge Information:and Continuing Care:Discharge Instructions:Activity: activity as tolerated. Weight-bearing Instructions: weight-bearing as tolerated.Nutrition/Diet: nothing by mouth Tube Feeding Product: Isosource 1.5 David Feeding Route: NG Frequency of Feeding: continuous Rate Per Hour: 55 ml/hr Comments: Free water flushes 250 ml four times a dayDrain/Tube Care: Type: NG (Nasogastric)Catheter Care: Type: indwelling Catheter Care Frequency: As needed Catheter Change: Please remove verduzco for trial of void 01/19/2017and, if patient does not spontaneously void, either re-insert verduzco orintermittent straight cath by patient preference.Rehab Services: Occupational Therapy [facility]: [facility] 2 times/day Physical Therapy Orders: Eval and Treat [facility] 2 times/day Speech Therapy Orders: Eval and Treat ([facility]2 times/dayInfectious Disease: PPD Status: not given MRSA: no VRE: no C. Diff: no Other Resistant Organism: no Isolation Type: noneCare Recommendation: I recommend that INPATIENT care is required at:: Acute rehab Estimated Stay: Convalescent stay < 30 daysFollow Up Appointments:Follow-Up Appointment 01: Physician/Dept/Service: Dr Nicole Campo, Neurology Scheduled Date/Time: 15-Mar-2017 09:00 Location: [facility] [address] [address] [place] [address] Mgjncudmg Medications: Home Medication aspirin 81 mg oral tablet, chewable - 1 tab(s) by nasogastric tube once a day lisinopril 20 mg oral tablet - 1 tab(s) by nasogastric tube once a day cloNIDine 0.2 mg oral tablet - 1 tab(s) by nasogastric tube 2 times a day traZODone - 50 milligram(s) by nasogastric tube once a day (at bedtime) atorvastatin - 40 milligram(s) by nasogastric tube once a day metoprolol tartrate 25 mg oral tablet - 1 tab(s) by nasogastric tube 2 times aday amLODIPine 10 mg oral tablet - 1 tab(s) by nasogastric tube once a day Cardizem CD - 120 milligram(s) orally once a day - to be started when able totake PO medications Senokot 8.6 mg oral tablet - 1 tab(s) by nasogastric tube once a day (atbedtime) Vitamin C - 500 milligram(s) by nasogastric tube 2 times a day multivitamin with minerals - 1 tab(s) by nasogastric tube once a day [place]-3 - 1 tab(s) by nasogastric tube 2 times a day potassium chloride - 10 milliequivalent(s) by nasogastric tube once a day PRN Medicationacetaminophen 325 mg oral tablet - 2 tab(s) by nasogastric tube every 6 hours,As Needed for painIssues to Discuss at Follow-up / Goals for Continuing Care:Patient's anticoagulation for atrial fibrillation will need to be restartedafter discharge when deemed safe from a hemorrhagic transformation perspective.Lab Results - Pending: NoneRadiology Results - Pending: NoneSignature/Cosignature/A ttestation:Attending Attestation I saw and evaluated the patient. I personally obtainedthe newby and critical portions of the history and physical exam or wasphysically present for newby and critical portions performed by theresident/fellow. I reviewed the resident/fellow?s documentation and discussedthe patient with the resident/fellow. I agree with the resident/fellow?smedical decision making as documented in the resident/fellow?s note with theexception/addition of the following:I personally evaluated the patient (as noted in the above attestation) [id number]/ Additional FindingsDischarge Diagnoses:R PICA territory infarction, recurrent, due to right vertebral- basilar arteryocclusion with large PCoA and retrograde flow down basilar artery, withstenosis LV (imaging 01/03/17)Encephalopathy and urinary retention due to cytotoxic edema, brain compression,and hydrocephalus- managed with hypertonic saline therapy, remained stable notrequiring surgical intervention.Ataxia, dysphagia- dobhoff placed, did not pass FEES, followup with ST toadvance diet.Urinary retention due to hydrocephalus- wean off verduzco as ableAF- xarelto stopped, recommend for ~2wks until major risk of hemorrhagictransformation resolves and CT stable.Plan as outlined. Discharge management > 30 minutes.Electronic Signatures:Jeison Allen (Resident)) (Signed 16-Jan-2017 13:44) Authored: Send Summary, Summary Content, Ongoing Care,Signature/Cosignature/ AttestationSNicole mantilla) (Signed 16-Jan-2017 16:09) Authored: Summary Content, Ongoing Care, Signature/Cosignature/Attes tatjessie Co-Signer: Send Summary, Summary Content, Ongoing Care,Signature/Cosignature/ AttestationLast Updated: 16-Jan-2017 16:09 by Nicole Campo)References:1. Data Referenced From History and Physical - Neuro 01/12/2017 12:01 AM Normal [facility] MAGNESIUMon 01-16-2017 Magnesium 2.26 mg/dL Normal 1.60 - 2.40 [facility] Comment on above: Performed By: #### C BC ####[facility] [place] [address] RENAL FUNCTION PANELon 01-16 Albumin 3.1 g/dL Low 3.4 - 5.0 [facility] Comment on above: Performed By: #### C BC ####[facility] [place] [address] Anion gap 10 mmol/L Normal 10 - 20 [facility] Comment on above: Performed By: #### C BC ####[facility] [place] [address] Bicarbonate (HCO3) 31 mmol/L Normal 21 - 32 [facility] Comment on above: Performed By: #### C BC ####[facility] [place] [address] Calcium 9.1 mg/dL Normal 8.6 - 10.6 [facility] Comment on above: Performed By: #### C BC ####[facility] [place] [address] Chloride 104 mmol/L Normal 98 - 107 [facility] Comment on above: Performed By: #### C BC ####[facility] [place] [address] Creatinine 0.96 mg/dL Normal 0.50 - 1.30 [facility] Comment on above: Performed By: #### C BC ####[facility] [place] [address] eGFR (non-black) mL/min/{1.73_m2} Normal >60 [facility] Comment on above: Performed By: #### C BC ####[facility] [place] [address] Result Comment: CALC ULATIONS OF ESTIMATED GFR ARE PERFORMED USING THE MDRD STUDY EQUATION FOR THE IDMS-TRACEABLE CREATININE METHODS. CLIN CHEM 2007;53:766-72 Glucose mass conc 127 mg/dL High 74 - 99 [facility] Comment on above: Performed By: #### C BC ####[facility] [place] [address] Phosphate 3.9 mg/dL Normal 2.5 - 4.9 [facility] Comment on above: Result Comment: The performance characteristics of phosphorus testing in heparinized plasma have been validated by the individual laboratory site where testing is performed. Testing on heparinized plasma is not approved by the FDA; however, such approval is not necessary. Performed By: #### C BC ####[facility] [place] [address] Potassium molar conc 3.6 mmol/L Normal 3.5 - 5.3 [facility] Comment on above: Performed By: #### C BC ####[facility] [place] [address] Sodium 141 mmol/L Normal 136 - 145 [facility] Comment on above: Performed By: #### C BC ####[facility] [place] [address] Urea nitrogen 28 mg/dL High 6 - 23 [facility] Comment on above: Performed By: #### C BC ####[facility] [place] [address] CALCIUM, IONIZEDon 7 CALCIUM,IONIZED 1.26 mmol/L Normal 1.10 - 1.33 [facility] Comment on above: Result Comment: The performance characteristics of ionized calcium tested in heparinized plasma or serum have been validated by the individual laboratory site where testing is performed. Testing on heparinized plasma or serum is not approved by the FDA; however, such approval is not necessary. Performed By: #### G SANDY ####[facility] [place] [address] CBC AND DIFFERENTIALon 01-15 % AUTOMATED IMMATURE GRAN 0.3 % Normal 0.0 - 0.9 [facility] Comment on above: Result Comment: Perc ent differential counts (%) should be interpreted in the context of the absolute cell counts (cells/L). Performed By: #### G SANDY ####[facility] [place] [address] % NEUTROPHIL 69.6 % Normal 40.0 - 80.0 [facility] Comment on above: Performed By: #### G SANDY ####[facility] [place] [address] Basophils/100 WBC Auto (Bld) 0.01 x10E9/L Normal 0.00 - 0.10 [facility] Comment on above: Performed By: #### G SANDY ####[facility] [place] [address] Basophils/100 WBC Auto (Bld) 0.1 % Normal 0.0 - 2.0 [facility] Comment on above: Performed By: #### G SANDY ####[facility] [place] [address] Eosinophils 0.12 10*3/uL Normal 0.00 - 0.70 [facility] Comment on above: Performed By: #### G SANDY ####[facility] [place] [address] Eosinophils/100 leukocytes 1.2 % Normal 0.0 - 6.0 [facility] Comment on above: Performed By: #### G SANDY ####[facility] [place] [address] Erythrocyte distribution width Auto Ratio (RBC) 14.0 % Normal 11.5 - 14.5 [facility] Comment on above: Performed By: #### G SANDY ####[facility] [place] [address] Erythrocytes (RBC) 3.90 x10E12/L Low 4.50 - 5.90 [facility] Comment on above: Performed By: #### G SANDY ####[facility] [place] [address] Hematocrit (HCT) 33.9 % Low 41.0 - 52.0 [facility] Comment on above: Performed By: #### G SANDY ####[facility] [place] [address] Hemoglobin mass conc (Bld) 10.7 g/dL Low 13.5 - 17.5 [facility] Comment on above: Performed By: #### G SANDY ####[facility] [place] [address] Lymphocytes 2.24 10*3/uL Normal 1.20 - 4.80 [facility] Comment on above: Performed By: #### G SANDY ####[facility] [place] [address] Lymphocytes/100 leukocytes 22.0 % Normal 13.0 - 44.0 [facility] Comment on above: Performed By: #### Yvette SANDY ####[facility] [place] [address] MCHC mass conc (RBC) 31.6 g/dL Low 32.0 - 36.0 [facility] Comment on above: Performed By: #### Yvette SANDY ####[facility] [place] [address] MCV 87 fL Normal 80 - 100 [facility] Comment on above: Performed By: #### G SANDY ####[facility] [place] [address] Monocytes 0.69 10*3/uL Normal 0.10 - 1.00 [facility] Comment on above: Performed By: #### G SADNY ####[facility] [place] [address] Monocytes/100 leukocytes 6.8 % Normal 2.0 - 10.0 [facility] Comment on above: Performed By: #### Yvette SANDY ####[facility] [place] [address] Neutrophils 7.09 10*3/uL Normal 1.20 - 7.70 [facility] Comment on above: Performed By: #### Yvette SANDY ####[facility] [place] [address] Nucleated erythrocytes 0.0 /100 WBC Normal 0.0-0.0 [facility] Comment on above: Performed By: #### Yvette SANDY ####[facility] [place] [address] Platelets 293 10*3/uL Normal 150 - 450 [facility] Comment on above: Performed By: #### G SANDY ####[facility] [place] [address] WBC (Leukocytes) 10.2 10*3/uL Normal 4.4 - 11.3 [facility] Comment on above: Performed By: #### Yvette SANDY ####[facility] [place] [address] COAGULATION SCREENon 017 aPTT 25 s Normal 25 - 36 [facility] Comment on above: Result Comment: THE APTT IS NO LONGER USED FOR MONITORING UNFRACTIONATED HEPARIN THERAPY. FOR MONITORING HEPARIN THERAPY, USE THE HEPARIN ASSAY. Performed By: #### G SANDY ####[facility] [place] [address] INR Coag RelTime (PPP) 1.0 {INR} Normal 0.9 - 1.1 [facility] Comment on above: Performed By: #### G SANDY ####[facility] [place] [address] Prothrombin time (PT) Coag time (PPP) 11.6 s Normal 9.8 - 12.7 [facility] Comment on above: Performed By: #### G SANDY ####[facility] [place] [address] MAGNESIUMon 01-15-2017 Magnesium 2.20 mg/dL Normal 1.60 - 2.40 [facility] Comment on above: Performed By: #### G SANDY ####[facility] [place] [address] RENAL FUNCTION PANELon 01-15 Albumin 3.6 g/dL Normal 3.4 - 5.0 [facility] Comment on above: Performed By: #### G SANDY ####[facility] [place] [address] Anion gap 12 mmol/L Normal 10 - 20 [facility] Comment on above: Performed By: #### G SANDY ####[facility] [place] [address] Bicarbonate (HCO3) 29 mmol/L Normal 21 - 32 [facility] Comment on above: Performed By: #### G SANDY ####[facility] [place] [address] Calcium 9.3 mg/dL Normal 8.6 - 10.6 [facility] Comment on above: Performed By: #### G SANDY ####[facility] [place] [address] Chloride 101 mmol/L Normal 98 - 107 [facility] Comment on above: Performed By: #### G SANDY ####[facility] [place] [address] Creatinine 0.97 mg/dL Normal 0.50 - 1.30 [facility] Comment on above: Performed By: #### G SANDY ####[facility] [place] [address] eGFR (non-black) mL/min/{1.73_m2} Normal >60 [facility] Comment on above: Performed By: #### G SANDY ####[facility] [place] [address] Result Comment: CALC ULATIONS OF ESTIMATED GFR ARE PERFORMED USING THE MDRD STUDY EQUATION FOR THE IDMS-TRACEABLE CREATININE METHODS. CLIN CHEM 2007;53:766-72 Glucose mass conc 121 mg/dL High 74 - 99 [facility] Comment on above: Performed By: #### G SANDY ####[facility] [place] [address] Phosphate 4.4 mg/dL Normal 2.5 - 4.9 [facility] Comment on above: Result Comment: The performance characteristics of phosphorus testing in heparinized plasma have been validated by the individual laboratory site where testing is performed. Testing on heparinized plasma is not approved by the FDA; however, such approval is not necessary. Performed By: #### G SANDY ####[facility] [place] [address] Potassium molar conc 3.4 mmol/L Low 3.5 - 5.3 [facility] Comment on above: Performed By: #### G SANDY ####[facility] [place] [address] Sodium 139 mmol/L Normal 136 - 145 [facility] Comment on above: Performed By: #### G SANDY ####[facility] [place] [address] Urea nitrogen 21 mg/dL Normal 6 - 23 [facility] Comment on above: Performed By: #### G SANDY ####[facility] [place] [address] CALCIUM, IONIZEDon 7 CALCIUM,IONIZED 1.21 mmol/L Normal 1.10 - 1.33 [facility] Comment on above: Result Comment: The performance characteristics of ionized calcium tested in heparinized plasma or serum have been validated by the individual laboratory site where testing is performed. Testing on heparinized plasma or serum is not approved by the FDA; however, such approval is not necessary. Performed By: #### U A ####[facility] [place] [address] CBC AND DIFFERENTIALon 01-14 % AUTOMATED IMMATURE GRAN 0.5 % Normal 0.0 - 0.9 [facility] Comment on above: Result Comment: Perc ent differential counts (%) should be interpreted in the context of the absolute cell counts (cells/L). Performed By: #### U A ####[facility] [place] [address] % NEUTROPHIL 68.6 % Normal 40.0 - 80.0 [facility] Comment on above: Performed By: #### U A ####[facility] [place] [address] Basophils/100 WBC Auto (Bld) 0.1 % Normal 0.0 - 2.0 [facility] Comment on above: Performed By: #### U A ####[facility] [place] [address] Basophils/100 WBC Auto (Bld) 0.01 x10E9/L Normal 0.00 - 0.10 [facility] Comment on above: Performed By: #### U A ####[facility] [place] [address] Eosinophils 0.03 10*3/uL Normal 0.00 - 0.70 [facility] Comment on above: Performed By: #### U A ####[facility] [place] [address] Eosinophils/100 leukocytes 0.3 % Normal 0.0 - 6.0 [facility] Comment on above: Performed By: #### U A ####[facility] [place] [address] Erythrocyte distribution width Auto Ratio (RBC) 14.4 % Normal 11.5 - 14.5 [facility] Comment on above: Performed By: #### U A ####[facility] [place] [address] Erythrocytes (RBC) 3.44 x10E12/L Low 4.50 - 5.90 [facility] Comment on above: Performed By: #### U A ####[facility] [place] [address] Hematocrit (HCT) 31.0 % Low 41.0 - 52.0 [facility] Comment on above: Performed By: #### U A ####[facility] [place] [address] Hemoglobin mass conc (Bld) 9.4 g/dL Low 13.5 - 17.5 [facility] Comment on above: Performed By: #### U A ####[facility] [place] [address] Lymphocytes 2.25 10*3/uL Normal 1.20 - 4.80 [facility] Comment on above: Performed By: #### U A ####[facility] [place] [address] Lymphocytes/100 leukocytes 23.5 % Normal 13.0 - 44.0 [facility] Comment on above: Performed By: #### U A ####[facility] [place] [address] MCHC mass conc (RBC) 30.3 g/dL Low 32.0 - 36.0 [facility] Comment on above: Performed By: #### U A ####[facility] [place] [address] MCV 90 fL Normal 80 - 100 [facility] Comment on above: Performed By: #### U A ####[facility] [place] [address] Monocytes 0.67 10*3/uL Normal 0.10 - 1.00 [facility] Comment on above: Performed By: #### U A ####[facility] [place] [address] Monocytes/100 leukocytes 7.0 % Normal 2.0 - 10.0 [facility] Comment on above: Performed By: #### U A ####[facility] [place] [address] Neutrophils 6.57 10*3/uL Normal 1.20 - 7.70 [facility] Comment on above: Performed By: #### U A ####[facility] [place] [address] Nucleated erythrocytes 0.0 /100 WBC Normal 0.0-0.0 [facility] Comment on above: Performed By: #### U A ####[facility] [place] [address] Platelets 276 10*3/uL Normal 150 - 450 [facility] Comment on above: Performed By: #### U A ####[facility] [place] [address] WBC (Leukocytes) 9.6 10*3/uL Normal 4.4 - 11.3 [facility] Comment on above: Performed By: #### U A ####[facility] [place] [address] COAGULATION SCREENon 017 aPTT 24 s Low 25 - 36 [facility] Comment on above: Result Comment: THE APTT IS NO LONGER USED FOR MONITORING UNFRACTIONATED HEPARIN THERAPY. FOR MONITORING HEPARIN THERAPY, USE THE HEPARIN ASSAY. Performed By: #### G SANDY ####[facility] [place] [address] INR Coag RelTime (PPP) 1.1 {INR} Normal 0.9 - 1.1 [facility] Comment on above: Performed By: #### G SANDY ####[facility] [place] [address] Prothrombin time (PT) Coag time (PPP) 12.1 s Normal 9.8 - 12.7 [facility] Comment on above: Performed By: #### G SANDY ####[facility] [place] [address] ELECTROLYTE, URINE SPOTon CHLORIDE,URINE SPOT 242 mmol/L Normal [facility] Comment on above: Performed By: #### G SANDY ####[facility] [place] [address] CHLORIDE/CREAT RATIO 1126 mmol/g Creat Normal [facility] Comment on above: Performed By: #### G SANDY ####[facility] [place] [address] CREATININE,URINE 21.5 mg/dL Normal [facility] Comment on above: Performed By: #### G SANDY ####[facility] [place] [address] POT/CREAT RATIO 60 mmol/g Creat Normal [facility] Comment on above: Performed By: #### G SANDY ####[facility] [place] [address] POTASSIUM,URINE SPOT 13 mmol/L Normal [facility] Comment on above: Performed By: #### G SANDY ####[facility] [place] [address] SODIUM,URINE SPOT 244 mmol/L Normal [facility] Comment on above: Performed By: #### G SANDY ####[facility] [place] [address] SODIUM/CREAT RATIO 1135 mmol/g Creat Normal [facility] Comment on above: Performed By: #### G SANDY ####[facility] [place] [address] UREA NITROGEN,URINE 173 mg/dL Normal [facility] Comment on above: Performed By: #### G SANDY ####[facility] [place] [address] UREA NITROGEN/CREAT RATIO 8.0 g/g Creat Normal [facility] Comment on above: Performed By: #### G SANDY ####[facility] [place] [address] OSMOLALITY,URINE SPOT 540 mOsm/kg Normal 200 - 1200 [facility] Comment on above: Performed By: #### G SANDY ####[facility] [place] [address] OSMOLALITY,URINE SPOT 667 mOsm/kg Normal 200 - 1200 [facility] Comment on above: Performed By: #### U A ####[facility] [place] [address] CHLORIDE,URINE SPOT 266 mmol/L Normal [facility] Comment on above: Performed By: #### U A ####[facility] [place] [address] CHLORIDE/CREAT RATIO 466 mmol/g Creat Normal [facility] Comment on above: Performed By: #### U A ####[facility] [place] [address] CREATININE,URINE 57.1 mg/dL Normal [facility] Comment on above: Performed By: #### U A ####[facility] [place] [address] POT/CREAT RATIO 51 mmol/g Creat Normal [facility] Comment on above: Performed By: #### U A ####[facility] [place] [address] POTASSIUM,URINE SPOT 29 mmol/L Normal [facility] Comment on above: Performed By: #### U A ####[facility] [place] [address] SODIUM,URINE SPOT 254 mmol/L Normal [facility] Comment on above: Performed By: #### U A ####[facility] [place] [address] SODIUM/CREAT RATIO 445 mmol/g Creat Normal [facility] Comment on above: Performed By: #### U A ####[facility] [place] [address] UREA NITROGEN,URINE 350 mg/dL Normal [facility] Comment on above: Performed By: #### U A ####[facility] [place] [address] UREA NITROGEN/CREAT RATIO 6.1 g/g Creat Normal [facility] Comment on above: Performed By: #### U A ####[facility] [place] [address] GLUCOSE-POCTon 01-14-2017 Glucose mass conc 109 mg/dL High 74 - 99 [facility] Comment on above: Performed By: #### G SANDY ####[facility] [place] [address] Glucose mass conc 113 mg/dL High 74 - 99 [facility] Comment on above: Performed By: #### G SANDY ####[facility] [place] [address] Glucose mass conc 111 mg/dL High 74 - 99 [facility] Comment on above: Performed By: #### U A ####[facility] [place] [address] MAGNESIUMon 01-14-2017 Magnesium 1.99 mg/dL Normal 1.60 - 2.40 [facility] Comment on above: Performed By: #### G SANDY ####[facility] [place] [address] HEAD WO CONTRASTon NR CT HEAD WO CONTRAST ent Name: ZUHAIRDARCY FADI STUDY:NR CT HEAD WO CONTRAST; 01/14/2017 4:35 am INDICATION:Signs/Symptoms: R PICA infarct, effacement of 4th ventricle, f/uhydrocephalus. COMPARISON: 01/13/2017, 01/12/2017 ORDERING CLINICIAN:IESHA العلي TECHNIQUE:Axial noncontrast CT images of the head. FINDINGS:BRAIN PARENCHYMA: Re- demonstrated decreased attenuation involvingthe right cerebellar hemisphere predominantly the mid to lowersegments which extends to the cortex in demonstrates associated masseffect with effacement of sulci and partial effacement of the right,posterior aspect of the 4th ventricle, which is not significantlychanged in appearance from prior imaging. Re- demonstrated increasedattenuation along the cerebellar tentorium. Generalized parenchymalvolume loss. Scattered nonspecific white matter changes likelyrepresent sequela of chronic microvascular ischemia. HEMORRHAGE: No acute intracranial hemorrhage. VENTRICLES and EXTRA-AXIAL SPACES: Ventricular enlargement concordantwith parenchymal volume loss. No extra-axial fluid collectionidentified.. EXTRACRANIAL SOFT TISSUES: Within normal limits. PARANASAL SINUSES/MASTOIDS: The visualized paranasal sinuses andmastoid air cells are aerated. Partially visualized nasogastric tube. CALVARIUM: No depressed skull fracture. No destructive osseous lesion. OTHER FINDINGS: None. 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 There is generalized parenchymal volume loss and ventricularenlargement. Superimposed obstructive hydrocephalus cannot beentirely excluded however ventricular enlargement is notsignificantly changed since recent prior imaging. Electronically signed by: JANIA GRAY, DO Normal [facility] OSMOLALITY, SERUMon 01-15-20 17 OSMOLALITY, SERUM 312 mOsm/kg H2O High 280 - 300 [facility] Comment on above: Performed By: #### G SANDY ####[facility] [place] [address] OSMOLALITY, SERUM 308 mOsm/kg H2O High 280 - 300 [facility] Comment on above: Performed By: #### G SANDY ####[facility] [place] [address] RENAL FUNCTION PANELon 01-14 Albumin 3.2 g/dL Low 3.4 - 5.0 [facility] Comment on above: Performed By: #### G SANDY ####[facility] [place] [address] Anion gap 11 mmol/L Normal - [facility] Comment on above: Performed By: #### G SANDY ####[facility] [place] [address] Bicarbonate (HCO3) 27 mmol/L Normal 21 - 32 [facility] Comment on above: Performed By: #### G SANDY ####[facility] [place] [address] Calcium 8.7 mg/dL Normal 8.6 - 10.6 [facility] Comment on above: Performed By: #### G SANDY ####[facility] [place] [address] Chloride 115 mmol/L High 98 - 107 [facility] Comment on above: Performed By: #### G SANDY ####[facility] [place] [address] Creatinine 0.85 mg/dL Normal 0.50 - 1.30 [facility] Comment on above: Performed By: #### G SANDY ####[facility] [place] [address] eGFR (non-black) mL/min/{1.73_m2} Normal >60 [facility] Comment on above: Performed By: #### G SANDY ####[facility] [place] [address] Result Comment: CALC ULATIONS OF ESTIMATED GFR ARE PERFORMED USING THE MDRD STUDY EQUATION FOR THE IDMS-TRACEABLE CREATININE METHODS. CLIN CHEM 2007;53:766-72 Glucose mass conc 107 mg/dL High 74 - 99 [facility] Comment on above: Performed By: #### G SANDY ####[facility] [place] [address] Phosphate 2.9 mg/dL Normal 2.5 - 4.9 [facility] Comment on above: Result Comment: The performance characteristics of phosphorus testing in heparinized plasma have been validated by the individual laboratory site where testing is performed. Testing on heparinized plasma is not approved by the FDA; however, such approval is not necessary. Performed By: #### G SANDY ####[facility] [place] [address] Potassium molar conc 4.1 mmol/L Normal 3.5 - 5.3 [facility] Comment on above: Performed By: #### G SANYD ####[facility] [place] [address] Sodium 149 mmol/L High 136 - 145 [facility] Comment on above: Performed By: #### G SANDY ####[facility] [place] [address] Urea nitrogen 15 mg/dL Normal 6 - 23 [facility] Comment on above: Performed By: #### G SANDY ####[facility] [place] [address] SODIUMon 01-14-2017 Sodium 143 mmol/L Normal 136 - 145 [facility] Comment on above: Performed By: #### G SANDY ####[facility] [place] [address] Sodium 144 mmol/L Normal 136 - 145 [facility] Comment on above: Performed By: #### G SANDY ####[facility] [place] [address] Sodium 148 mmol/L High 136 - 145 [facility] Comment on above: Performed By: #### G SANDY ####[facility] [place] [address] Sodium 147 mmol/L High 136 - 145 [facility] Comment on above: Performed By: #### G SANDY ####[facility] [place] [address] UA MICROSCOPICon 01-14-2017 Erythrocytes (RBC) 13 /HPF Abnormal 0-5 [facility] Comment on above: Performed By: #### U A ####[facility] [place] [address] Urine, mucus presence in sediment 1+ /LPF Normal [facility] Comment on above: Performed By: #### U A ####[facility] [place] [address] WBC (Leukocytes) 1 /HPF Normal 0-5 [facility] Comment on above: Performed By: #### U A ####[facility] [place] [address] URINALYSISon 01-14-2017 Bilirubin (total) Negative Normal NEGATIVE [facility] Comment on above: Performed By: #### U A ####[facility] [place] [address] BLOOD SMALL (1+) Abnormal NEGATIVE [facility] Comment on above: Performed By: #### U A ####[facility] [place] [address] Glucose mass conc Negative Normal NEGATIVE [facility] Comment on above: Performed By: #### U A ####[facility] [place] [address] pH of blood 6.0 [pH] Normal 5.0 - 8.0 [facility] Comment on above: Performed By: #### U A ####[facility] [place] [address] Protein Negative Normal NEGATIVE [facility] Comment on above: Performed By: #### U A ####[facility] [place] [address] Urine, appearance CLEAR Normal CLEAR [facility] Comment on above: Performed By: #### U A ####[facility] [place] [address] Urine, color STRAW Normal STRAW,YELLO W [facility] Comment on above: Performed By: #### U A ####[facility] [place] [address] Urine, ketones presence Negative Normal NEGATIVE [facility] Comment on above: Performed By: #### U A ####[facility] [place] [address] Urine, leukocyte esterase presence Negative Normal NEGATIVE [facility] Comment on above: Performed By: #### U A ####[facility] [place] [address] Urine, nitrite presence Negative Normal NEGATIVE [facility] Comment on above: Performed By: #### U A ####[facility] [place] [address] Urine, specific gravity 1.013 Normal 1.005 - 1.035 [facility] Comment on above: Performed By: #### U A ####[facility] [place] [address] Urine, urobilinogen <2.0 Normal 0.0 - 1.9 [facility] Comment on above: Performed By: #### U A ####[facility] [id number] [place] [address] CALCIUM, IONIZEDon 7 CALCIUM,IONIZED 1.24 mmol/L Normal 1.10 - 1.33 [facility] Comment on above: Result Comment: The performance characteristics of ionized calcium tested in heparinized plasma or serum have been validated by the individual laboratory site where testing is performed. Testing on heparinized plasma or serum is not approved by the FDA; however, such approval is not necessary. Performed By: #### R ENAL ####[facility] [id number] [place] [address] CBC AND DIFFERENTIALon 01-13 % AUTOMATED IMMATURE GRAN 0.7 % Normal 0.0 - 0.9 [facility] Comment on above: Result Comment: Perc ent differential counts (%) should be interpreted in the context of the absolute cell counts (cells/L). Performed By: #### M G ####[facility] [place] [address] % NEUTROPHIL 85.5 % Normal 40.0 - 80.0 [facility] Comment on above: Performed By: #### M G ####[facility] [place] [address] Basophils/100 WBC Auto (Bld) 0.1 % Normal 0.0 - 2.0 [facility] Comment on above: Performed By: #### M G ####[facility] [place] [address] Basophils/100 WBC Auto (Bld) 0.01 x10E9/L Normal 0.00 - 0.10 [facility] Comment on above: Performed By: #### M G ####[facility] [place] [address] Eosinophils 0.00 10*3/uL Normal 0.00 - 0.70 [facility] Comment on above: Performed By: #### M G ####[facility] [place] [address] Eosinophils/100 leukocytes 0.0 % Normal 0.0 - 6.0 [facility] Comment on above: Performed By: #### M G ####[facility] [place] [address] Erythrocyte distribution width Auto Ratio (RBC) 14.4 % Normal 11.5 - 14.5 [facility] Comment on above: Performed By: #### M G ####[facility] [place] [address] Erythrocytes (RBC) 3.37 x10E12/L Low 4.50 - 5.90 [facility] Comment on above: Performed By: #### M G ####[facility] [place] [address] Hematocrit (HCT) 28.4 % Low 41.0 - 52.0 [facility] Comment on above: Performed By: #### M G ####[facility] [place] [address] Hemoglobin mass conc (Bld) 9.1 g/dL Low 13.5 - 17.5 [facility] Comment on above: Performed By: #### M G ####[facility] [place] [address] Lymphocytes 1.33 10*3/uL Normal 1.20 - 4.80 [facility] Comment on above: Performed By: #### M G ####[facility] [place] [address] Lymphocytes/100 leukocytes 9.1 % Low 13.0 - 44.0 [facility] Comment on above: Performed By: #### M G ####[facility] [place] [address] MCHC mass conc (RBC) 32.0 g/dL Normal 32.0 - 36.0 [facility] Comment on above: Performed By: #### M G ####[facility] [place] [address] MCV 84 fL Normal 80 - 100 [facility] Comment on above: Performed By: #### M G ####[facility] [place] [address] Monocytes 0.67 10*3/uL Normal 0.10 - 1.00 [facility] Comment on above: Performed By: #### M G ####[facility] [place] [address] Monocytes/100 leukocytes 4.6 % Normal 2.0 - 10.0 [facility] Comment on above: Performed By: #### M G ####[facility] [place] [address] Neutrophils 12.50 10*3/uL High 1.20 - 7.70 [facility] Comment on above: Performed By: #### M G ####[facility] [place] [address] Nucleated erythrocytes 0.0 /100 WBC Normal 0.0-0.0 [facility] Comment on above: Performed By: #### M G ####[facility] [place] [address] Platelets 325 10*3/uL Normal 150 - 450 [facility] Comment on above: Performed By: #### M G ####[facility] [place] [address] WBC (Leukocytes) 14.6 10*3/uL High 4.4 - 11.3 [facility] Comment on above: Performed By: #### M G ####[facility] [place] [address] COAGULATION SCREENon 017 aPTT 25 s Normal 25 - 36 [facility] Comment on above: Result Comment: THE APTT IS NO LONGER USED FOR MONITORING UNFRACTIONATED HEPARIN THERAPY. FOR MONITORING HEPARIN THERAPY, USE THE HEPARIN ASSAY. Performed By: #### R ENAL ####[facility] [place] [address] INR Coag RelTime (PPP) 1.2 {INR} High 0.9 - 1.1 [facility] Comment on above: Performed By: #### R ENAL ####[facility] [place] [address] Prothrombin time (PT) Coag time (PPP) 13.0 s High 9.8 - 12.7 [facility] Comment on above: Performed By: #### R ENAL ####[facility] [place] [address] EMR ADDONon 01-13-2017 ADDON CONFIRMATION REQUEST REC'D Normal [facility] Comment on above: Performed By: #### C OAGS ####[facility] [place] [address] GLUCOSE-POCTon 01-13-2017 Glucose mass conc 104 mg/dL High 74 - 99 [facility] Comment on above: Performed By: #### U A ####[facility] [place] [address] Glucose mass conc 99 mg/dL Normal 74 - 99 [facility] Comment on above: Performed By: #### U A ####[facility] [place] [address] Glucose mass conc 99 mg/dL Normal 74 - 99 [facility] Comment on above: Performed By: #### C OAGS ####[facility] [place] [address] Glucose mass conc 117 mg/dL High 74 - 99 [facility] Comment on above: Performed By: #### R ENAL ####[facility] [place] [address] Glucose mass conc 141 mg/dL High 74 - 99 [facility] Comment on above: Performed By: #### R ENAL ####[facility] [place] [address] Glucose mass conc 128 mg/dL High 74 - 99 [facility] Comment on above: Performed By: #### M G ####[facility] [place] [address] MAGNESIUMon 01-13-2017 Magnesium 1.90 mg/dL Normal 1.60 - 2.40 [facility] Comment on above: Performed By: #### R ENAL ####[facility] [place] [address] HEAD WO CONTRASTon NR CT HEAD WO CONTRAST ent Name: FADI POSADAS STUDY:NR CT HEAD WO CONTRAST; 01/13/2017 4:01 am INDICATION:Signs/Symptoms: R full PICA stroke w/ hydrocephalus, f/u scan. COMPARISON:January 12. ORDERING CLINICIAN:IESHA العلي TECHNIQUE:*Noncontrast enhanced CT brain FINDINGS:Redemonstration of evolving infarction in the right cerebellarhemisphere without associated hemorrhage. 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 Mild masseffect upon the 4th ventricle*Unchanged ventricular dilatation cannot be further characterized.Obstructive hydrocephalus cannot be completely excluded.*[facility] [place] signed by: MEENU IRELAND MD Normal [facility] OSMOLALITY, SERUMon 01-14-20 17 OSMOLALITY, SERUM 299 mOsm/kg H2O Normal 280 - 300 [facility] Comment on above: Performed By: #### U A ####[facility] [place] [address] OSMOLALITY, SERUM 308 mOsm/kg H2O High 280 - 300 [facility] Comment on above: Performed By: #### C OAGS ####[facility] [id number] [place] [address] OSMOLALITY, SERUM 311 mOsm/kg H2O High 280 - 300 [facility] Comment on above: Performed By: #### C OAGS ####[facility] [place] [address] OSMOLALITY, SERUM 314 mOsm/kg H2O High 280 - 300 [facility] Comment on above: Performed By: #### R ENAL ####[facility] [place] [address] OSMOLALITY, SERUM 308 mOsm/kg H2O High 280 - 300 [facility] Comment on above: Performed By: #### R ENAL ####[facility] [place] [address] OSMOLALITY, SERUM 308 mOsm/kg H2O High 280 - 300 [facility] Comment on above: Performed By: #### M G ####[facility] [place] [address] RENAL FUNCTION PANELon 01-13 Albumin 3.1 g/dL Low 3.4 - 5.0 [facility] Comment on above: Performed By: #### R ENAL ####[facility] [place] [address] Anion gap 14 mmol/L Normal 10 - 20 [facility] Comment on above: Performed By: #### R ENAL ####[facility] [place] [address] Bicarbonate (HCO3) 25 mmol/L Normal 21 - 32 [facility] Comment on above: Performed By: #### R ENAL ####[facility] [place] [address] Calcium 8.9 mg/dL Normal 8.6 - 10.6 [facility] Comment on above: Performed By: #### R ENAL ####[facility] [place] [address] Chloride 113 mmol/L High 98 - 107 [facility] Comment on above: Performed By: #### R ENAL ####[facility] [place] [address] Creatinine 0.97 mg/dL Normal 0.50 - 1.30 [facility] Comment on above: Performed By: #### R ENAL ####[facility] [place] [address] eGFR (non-black) mL/min/{1.73_m2} Normal >60 [facility] Comment on above: Performed By: #### R ENAL ####[facility] [place] [address] Result Comment: CALC ULATIONS OF ESTIMATED GFR ARE PERFORMED USING THE MDRD STUDY EQUATION FOR THE IDMS-TRACEABLE CREATININE METHODS. CLIN CHEM 2007;53:766-72 Glucose mass conc 120 mg/dL High 74 - 99 [facility] Comment on above: Performed By: #### R ENAL ####[facility] [place] [address] Phosphate 3.5 mg/dL Normal 2.5 - 4.9 [facility] Comment on above: Result Comment: The performance characteristics of phosphorus testing in heparinized plasma have been validated by the individual laboratory site where testing is performed. Testing on heparinized plasma is not approved by the FDA; however, such approval is not necessary. Performed By: #### R ENAL ####[facility] [place] [address] Potassium molar conc 4.6 mmol/L Normal 3.5 - 5.3 [facility] Comment on above: Performed By: #### R ENAL ####[facility] [place] [address] Sodium 147 mmol/L High 136 - 145 [facility] Comment on above: Performed By: #### R ENAL ####[facility] [place] [address] Urea nitrogen 24 mg/dL High 6 - 23 [facility] Comment on above: Performed By: #### R ENAL ####[facility] [place] [address] SODIUMon 01-13-2017 Sodium 146 mmol/L High 136 - 145 [facility] Comment on above: Performed By: #### U A ####[facility] [place] [address] Sodium 145 mmol/L Normal 136 - 145 [facility] Comment on above: Performed By: #### C OAGS ####[facility] [place] [address] Sodium 146 mmol/L High 136 - 145 [facility] Comment on above: Performed By: #### C OAGS ####[facility] [place] [address] Sodium 147 mmol/L High 136 - 145 [facility] Comment on above: Performed By: #### R ENAL ####[facility] [place] [address] Sodium 146 mmol/L High 136 - 145 [facility] Comment on above: Performed By: #### M G ####[facility] [place] [address] TH ABDOMEN AP VIEWon 017 TH ABDOMEN AP VIEW Name: FADI POSADAS STUDY:ABDOMEN AP VIEW; 01/13/2017 4:00 pm INDICATION:Signs/Symptoms: check KUB. COMPARISON:None ORDERING CLINICIAN:IESHA العلي FINDINGS:Dobhoff tube overlies the proximal body of stomach advancement isrecommended. Nonobstructive bowel gas pattern. Limited evaluation ofpneumoperitoneum on supine imaging, however no gross evidence of freeair is noted. Visualized lungs are clear. Osseous structures demonstrate no acute bony changes. IMPRESSION:1. Dobhoff tube overlies the proximal body of stomach.Electronically signed by: Subha HALL MD Normal [facility] TROPONIN Ion 01-13-2017 Troponin I.cardiac mass conc ng/mL Normal 0.00 - 0.03 [facility] Comment on above: Result Comment: LESS THAN 0.04 NG/ML: NEGATIVEREPEAT TESTING IN FOUR TO SIX HOURSIF CLINICALLY INDICATED.0.04 - 0.5 NG/ML: CONSISTENT WITH POSSIBLECARDIAC DAMAGE AND POSSIBLE INCREASEDCLINICAL RISK.SERIAL MEASUREMENTS MAY HELP ASSESS EXTENT OFMYOCARDIAL DAMAGE.>0.5 NG/ML: CONSISTENT WITH CARDIAC DAMAGE,INCREASED CLINICAL RISK AND MYOCARDIALINFARCTION. SERIAL MEASUREMENTS MAY HELPASSESS EXTENT OF MYOCARDIAL DAMAGE..Note: Troponin I testing is performed using differenttesting methodology at [facility] than at [facility]. Direct result comparisons should onlybe made within the same method.. Patients receiving more than 5 mg/day of biotin may have interference in test results. A sample should be taken no sooner than eight hours after previous dose. Contact [phone] for additional information. Performed By: #### C OAGS ####[facility] [place] [address] Troponin I.cardiac mass conc ng/mL Normal 0.00 - 0.03 [facility] Comment on above: Result Comment: LESS THAN 0.04 NG/ML: NEGATIVEREPEAT TESTING IN FOUR TO SIX HOURSIF CLINICALLY INDICATED.0.04 - 0.5 NG/ML: CONSISTENT WITH POSSIBLECARDIAC DAMAGE AND POSSIBLE INCREASEDCLINICAL RISK.SERIAL MEASUREMENTS MAY HELP ASSESS EXTENT OFMYOCARDIAL DAMAGE.>0.5 NG/ML: CONSISTENT WITH CARDIAC DAMAGE,INCREASED CLINICAL RISK AND MYOCARDIALINFARCTION. SERIAL MEASUREMENTS MAY HELPASSESS EXTENT OF MYOCARDIAL DAMAGE..Note: Troponin I testing is performed using differenttesting methodology at [facility] than at [facility]. Direct result comparisons should onlybe made within the same method.. Patients receiving more than 5 mg/day of biotin may have interference in test results. A sample should be taken no sooner than eight hours after previous dose. Contact [phone] for additional information. Performed By: #### C OAGS ####[facility] [place] [address] Troponin I.cardiac mass conc ng/mL Normal 0.00 - 0.03 [facility] Comment on above: Result Comment: LESS THAN 0.04 NG/ML: NEGATIVEREPEAT TESTING IN FOUR TO SIX HOURSIF CLINICALLY INDICATED.0.04 - 0.5 NG/ML: CONSISTENT WITH POSSIBLECARDIAC DAMAGE AND POSSIBLE INCREASEDCLINICAL RISK.SERIAL MEASUREMENTS MAY HELP ASSESS EXTENT OFMYOCARDIAL DAMAGE.>0.5 NG/ML: CONSISTENT WITH CARDIAC DAMAGE,INCREASED CLINICAL RISK AND MYOCARDIALINFARCTION. SERIAL MEASUREMENTS MAY HELPASSESS EXTENT OF MYOCARDIAL DAMAGE..Note: Troponin I testing is performed using differenttesting methodology at [facility] than at [facility]. Direct result comparisons should onlybe made within the same method.. Patients receiving more than 5 mg/day of biotin may have interference in test results. A sample should be taken no sooner than eight hours after previous dose. Contact [phone] for additional information. Performed By: #### C OAGS ####[facility] [place] [address] CALCIUM, IONIZEDon 7 CALCIUM,IONIZED 1.28 mmol/L Normal 1.10 - 1.33 [facility] Comment on above: Result Comment: The performance characteristics of ionized calcium tested in heparinized plasma or serum have been validated by the individual laboratory site where testing is performed. Testing on heparinized plasma or serum is not approved by the FDA; however, such approval is not necessary. Performed By: #### I ONC1 ####[place] [id number] [place] [address] CBCon 01-12-2017 Erythrocyte distribution width Auto Ratio (RBC) 13.7 % Normal 11.5 - 14.5 [facility] Comment on above: Performed By: #### C BC ####[place] [id number] [place] [address] Erythrocytes (RBC) 3.75 x10E12/L Low 4.50 - 5.90 [facility] Comment on above: Performed By: #### C BC ####[facility] [place] [address] Hematocrit (HCT) 31.3 % Low 41.0 - 52.0 [facility] Comment on above: Performed By: #### C BC ####[facility] [place] [address] Hemoglobin mass conc (Bld) 10.4 g/dL Low 13.5 - 17.5 [facility] Comment on above: Performed By: #### C BC ####[facility] [place] [address] MCHC mass conc (RBC) 33.2 g/dL Normal 32.0 - 36.0 [facility] Comment on above: Performed By: #### C BC ####[facility] [place] [address] MCV 83 fL Normal 80 - 100 [facility] Comment on above: Performed By: #### C BC ####[facility] [place] [address] Nucleated erythrocytes 0.0 /100 WBC Normal 0.0-0.0 [facility] Comment on above: Performed By: #### C BC ####[facility] [place] [address] Platelets 357 10*3/uL Normal 150 - 450 [facility] Comment on above: Performed By: #### C BC ####[facility] [place] [address] WBC (Leukocytes) 13.9 10*3/uL High 4.4 - 11.3 [facility] Comment on above: Performed By: #### C BC ####[facility] [place] [address] COAGULATION SCREENon 017 aPTT 30 s Normal 25 - 36 [facility] Comment on above: Result Comment: THE APTT IS NO LONGER USED FOR MONITORING UNFRACTIONATED HEPARIN THERAPY. FOR MONITORING HEPARIN THERAPY, USE THE HEPARIN ASSAY. Performed By: #### C OAGS ####[facility] [place] [address] INR Coag RelTime (PPP) 1.2 {INR} High 0.9 - 1.1 [facility] Comment on above: Performed By: #### C OAGS ####[facility] [place] [address] Prothrombin time (PT) Coag time (PPP) 13.4 s High 9.8 - 12.7 [facility] Comment on above: Performed By: #### C OAGS ####[facility] [place] [address] GLUCOSE-POCTon 01-12-2017 Glucose mass conc 144 mg/dL High 74 - 99 [facility] Comment on above: Performed By: #### M G ####[facility] [place] [address] Glucose mass conc 144 mg/dL High 74 - 99 [facility] Comment on above: Performed By: #### M G ####[facility] [place] [address] Glucose mass conc 155 mg/dL High 74 - 99 [facility] Comment on above: Performed By: #### I ONC1 ####[facility] [place] [address] Glucose mass conc 134 mg/dL High 74 - 99 [facility] Comment on above: Performed By: #### I ONC1 ####[facility] [place] [address] Glucose mass conc 188 mg/dL High 74 - 99 [facility] Comment on above: Performed By: #### G SANDY ####[facility] [place] [address] Glucose mass conc 156 mg/dL High 74 - 99 [facility] Comment on above: Performed By: #### G SANDY ####[facility] [place] [address] MAGNESIUMon 01-12-2017 Magnesium 1.72 mg/dL Normal 1.60 - 2.40 [facility] Comment on above: Performed By: #### I ONC1 ####[facility] [place] [address] Magnesium 1.85 mg/dL Normal 1.60 - 2.40 [facility] Comment on above: Performed By: #### M G ####[facility] [place] [address] HEAD WO CONTRASTon NR CT HEAD WO CONTRAST ent Name: FADI POSADAS STUDY:CT HEAD WO CONTRAST; 01/12/2017 1:39 am INDICATION:Signs/Symptoms: R cerebellar infarct with effacement. COMPARISON:None. ORDERING CLINICIAN:MERLIN MACHADO TECHNIQUE:Noncontrast axial CT scan of head was performed. Angled reformats inbrain and bone windows were generated. The images were reviewed inbone, brain, blood and soft tissue windows. FINDINGS:There is abnormal diminished attenuation within the right cerebellarhemisphere with loss of guillaume/white matter differentiation. Thecerebellar tonsils extend at least to the level of the foramenmagnum. There is associated mass effect with partial effacement ofthe 4th ventricle and impression on the cervicomedullary junction.There is prominence of ventricles and sulci compatible with diffuseparenchymal volume loss. However, the degree of enlargement of thelateral and 3rd ventricles is disproportionate with the size of theadjacent sulci and the 4th ventricle is partially effaced. No highattenuation material suggestive of acute intracranial hemorrhage isidentified. There is no evidence of supratentorial midline shift. The visualized paranasal sinuses and mastoid air cells are clear. IMPRESSION:Findings compatible with subacute ischemic injury involving the rightcerebellar hemisphere. There is associated partial effacement of the4th ventricle and hydrocephalus. Results were discussed by resident physician Dr. Saad Gregorywith Dr. Timmons on January 12, 2017 at 2:31 a.m..Electronically signed by: LEISA THOMAS, DO Normal [facility] OSMOLALITY, SERUMon 01-13-20 17 OSMOLALITY, SERUM 309 mOsm/kg H2O High 280 - 300 [facility] Comment on above: Performed By: #### M G ####[facility] [place] [address] OSMOLALITY, SERUM 301 mOsm/kg H2O High 280 - 300 [facility] Comment on above: Performed By: #### M G ####[facility] [place] [address] OSMOLALITY, SERUM 291 mOsm/kg H2O Normal 280 - 300 [facility] Comment on above: Performed By: #### I ONC1 ####[facility] [place] [address] OSMOLALITY, SERUM 293 mOsm/kg H2O Normal 280 - 300 [facility] Comment on above: Performed By: #### I ONC1 ####[facility] [place] [address] RENAL FUNCTION PANELon 01-12 Albumin 3.4 g/dL Normal 3.4 - 5.0 [facility] Comment on above: Performed By: #### I ONC1 ####[facility] [place] [address] Anion gap 14 mmol/L Normal 10 - 20 [facility] Comment on above: Performed By: #### I ONC1 ####[facility] [place] [address] Bicarbonate (HCO3) 27 mmol/L Normal 21 - 32 [facility] Comment on above: Performed By: #### I ONC1 ####[facility] [place] [address] Calcium 9.5 mg/dL Normal 8.6 - 10.6 [facility] Comment on above: Performed By: #### I ONC1 ####[facility] [place] [address] Chloride 102 mmol/L Normal 98 - 107 [facility] Comment on above: Performed By: #### I ONC1 ####[facility] [place] [address] Creatinine 1.07 mg/dL Normal 0.50 - 1.30 [facility] Comment on above: Performed By: #### I ONC1 ####[facility] [place] [address] eGFR (non-black) mL/min/{1.73_m2} Normal >60 [facility] Comment on above: Result Comment: CALC ULATIONS OF ESTIMATED GFR ARE PERFORMED USING THE MDRD STUDY EQUATION FOR THE IDMS-TRACEABLE CREATININE METHODS. CLIN CHEM 2007;53:766-72 Performed By: #### I ONC1 ####[facility] [place] [address] Glucose mass conc 157 mg/dL High 74 - 99 [facility] Comment on above: Performed By: #### I ONC1 ####[facility] [place] [address] Phosphate 4.4 mg/dL Normal 2.5 - 4.9 [facility] Comment on above: Result Comment: The performance characteristics of phosphorus testing in heparinized plasma have been validated by the individual laboratory site where testing is performed. Testing on heparinized plasma is not approved by the FDA; however, such approval is not necessary. Performed By: #### I ONC1 ####[facility] [place] [address] Potassium molar conc 4.7 mmol/L Normal 3.5 - 5.3 [facility] Comment on above: Performed By: #### I ONC1 ####[facility] [place] [address] Sodium 138 mmol/L Normal 136 - 145 [facility] Comment on above: Performed By: #### I ONC1 ####[facility] [place] [address] Urea nitrogen 21 mg/dL Normal 6 - 23 [facility] Comment on above: Performed By: #### I ONC1 ####[facility] [place] [address] Albumin 3.8 g/dL Normal 3.4 - 5.0 [facility] Comment on above: Performed By: #### R ENAL ####[facility] [place] [address] Anion gap 14 mmol/L Normal 10 - 20 [facility] Comment on above: Performed By: #### R ENAL ####[facility] [place] [address] Bicarbonate (HCO3) 28 mmol/L Normal 21 - 32 [facility] Comment on above: Performed By: #### R ENAL ####[facility] [place] [address] Calcium 9.9 mg/dL Normal 8.6 - 10.6 [facility] Comment on above: Performed By: #### R ENAL ####[facility] [place] [address] Chloride 99 mmol/L Normal 98 - 107 [facility] Comment on above: Performed By: #### R ENAL ####[facility] [place] [address] Creatinine 0.96 mg/dL Normal 0.50 - 1.30 [facility] Comment on above: Performed By: #### R ENAL ####[facility] [place] [address] eGFR (non-black) mL/min/{1.73_m2} Normal >60 [facility] Comment on above: Result Comment: CALC ULATIONS OF ESTIMATED GFR ARE PERFORMED USING THE MDRD STUDY EQUATION FOR THE IDMS-TRACEABLE CREATININE METHODS. CLIN CHEM 2007;53:766-72 Performed By: #### R ENAL ####[facility] [place] [address] Glucose mass conc 149 mg/dL High 74 - 99 [facility] Comment on above: Performed By: #### R ENAL ####[facility] [place] [address] Phosphate 2.7 mg/dL Normal 2.5 - 4.9 [facility] Comment on above: Result Comment: The performance characteristics of phosphorus testing in heparinized plasma have been validated by the individual laboratory site where testing is performed. Testing on heparinized plasma is not approved by the FDA; however, such approval is not necessary. Performed By: #### R ENAL ####[facility] [place] [address] Potassium molar conc 4.5 mmol/L Normal 3.5 - 5.3 [facility] Comment on above: Performed By: #### R ENAL ####[facility] [place] [address] Sodium 136 mmol/L Normal 136 - 145 [facility] Comment on above: Performed By: #### R ENAL ####[facility] [place] [address] Urea nitrogen 16 mg/dL Normal 6 - 23 [facility] Comment on above: Performed By: #### R ENAL ####[facility] [place] [address] SODIUMon 01-12-2017 Sodium 145 mmol/L Normal 136 - 145 [facility] Comment on above: Performed By: #### M G ####[facility] [place] [address] Sodium 141 mmol/L Normal 136 - 145 [facility] Comment on above: Performed By: #### I ONC1 ####[facility] [place] [address] Sodium 139 mmol/L Normal 136 - 145 [facility] Comment on above: Performed By: #### I ONC1 ####[facility] [place] [address] TH CHEST 1 VIEWon 01-12-2017 TH CHEST 1 VIEW Name: FADI POSADAS STUDY:TH CHEST 1 VIEW; 01/12/2017 4:25 pm INDICATION:Signs/Symptoms: hematoma near right CVC. COMPARISON:Chest radiograph from 01/12/2017 at 12:41 p.m. ORDERING CLINICIAN:IESHA العلي FINDINGS:Patient status post median sternotomy. Right subclavian centralvenous catheter terminating in the cavoatrial junction. CARDIOMEDIASTINAL SILHOUETTE:Cardiomediastina l silhouette is normal in size and configuration. LUNGS:There is no consolidation, sizeable pleural effusion or pneumothorax. ABDOMEN:No remarkable upper abdominal findings. BONES:No acute osseous changes. IMPRESSION:1. There is a consolidation, sizeable pleural effusion orpneumothorax.2. Stable multiple devices as described above.I personally reviewed the images/study and I agree with the findingsas stated. This study was interpreted at [place], [place].Electronically signed by: Subha HALL MD Normal [facility] TH CHEST 1 VIEW Name: FADI POSADAS STUDY:TH CHEST 1 VIEW; 01/12/2017 12:40 pm INDICATION:Signs/Symptoms: central line placement. COMPARISON:None. ORDERING CLINICIAN:LEISA RAY FINDINGS:Patient status post median sternotomy. There is a right subclaviancentral venous catheter terminating in the cavoatrial junction. CARDIOMEDIASTINAL SILHOUETTE:Cardiomediastina l silhouette is normal and stable in size andconfiguration. LUNGS:There is no consolidation, sizeable pleural effusion or pneumothorax. ABDOMEN:No remarkable upper abdominal findings. BONES:No acute osseous changes. IMPRESSION:1. Is right subclavian central venous catheter terminating in thecavoatrial junction.2. There is no consolidation, sizeable pleural effusion orpneumothorax.I personally reviewed the images/study and I agree with the findingsas stated. This study was interpreted at [facility], [place], [place].Electronically signed by: Subha HALL MD Normal [facility] URINALYSISon 01-12-2017 Bilirubin (total) Negative Normal NEGATIVE [facility] Comment on above: Performed By: #### U A ####[place] [id number] [place] [address] BLOOD Negative Normal NEGATIVE [facility] Comment on above: Performed By: #### U A ####[place] [id number] [place] [address] Glucose mass conc 50 (TRACE) Abnormal NEGATIVE [facility] Comment on above: Performed By: #### U A ####[facility] [place] [address] pH of blood 6.0 [pH] Normal 5.0 - 8.0 [facility] Comment on above: Performed By: #### U A ####[facility] [place] [address] Protein Negative Normal NEGATIVE [facility] Comment on above: Performed By: #### U A ####[facility] [place] [address] Urine, appearance CLEAR Normal CLEAR [facility] Comment on above: Performed By: #### U A ####[facility] [place] [address] Urine, color YELLOW Normal STRAW,YELLO W [facility] Comment on above: Performed By: #### U A ####[facility] [place] [address] Urine, ketones presence Negative Normal NEGATIVE [facility] Comment on above: Performed By: #### U A ####[facility] [place] [address] Urine, leukocyte esterase presence Negative Normal NEGATIVE [facility] Comment on above: Performed By: #### U A ####[facility] [place] [address] Urine, nitrite presence Negative Normal NEGATIVE [facility] Comment on above: Performed By: #### U A ####[facility] [place] [address] Urine, specific gravity 1.020 Normal 1.005 - 1.035 [facility] Comment on above: Performed By: #### U A ####[facility] [place] [address] Urine, urobilinogen <2.0 Normal 0.0 - 1.9 [facility] Comment on above: Performed By: #### U A ####[place] [id number] [place] [address] CALCIUM, IONIZEDon 7 CALCIUM,IONIZED 1.33 mmol/L Normal 1.10 - 1.33 [facility] Comment on above: Result Comment: The performance characteristics of ionized calcium tested in heparinized plasma or serum have been validated by the individual laboratory site where testing is performed. Testing on heparinized plasma or serum is not approved by the FDA; however, such approval is not necessary. Performed By: #### I ONC1 ####[facility] [place] [address] CBC AND DIFFERENTIALon 01-11 % AUTOMATED IMMATURE GRAN 0.5 % Normal 0.0 - 0.9 [facility] Comment on above: Result Comment: Perc ent differential counts (%) should be interpreted in the context of the absolute cell counts (cells/L). Performed By: #### C BCDF ####[facility] [place] [address] % NEUTROPHIL 89.3 % Normal 40.0 - 80.0 [facility] Comment on above: Performed By: #### C BCDF ####[facility] [place] [address] Basophils/100 WBC Auto (Bld) 0.1 % Normal 0.0 - 2.0 [facility] Comment on above: Performed By: #### C BCDF ####[facility] [place] [address] Basophils/100 WBC Auto (Bld) 0.01 x10E9/L Normal 0.00 - 0.10 [facility] Comment on above: Performed By: #### C BCDF ####[facility] [place] [address] Eosinophils 0.00 10*3/uL Normal 0.00 - 0.70 [facility] Comment on above: Performed By: #### C BCDF ####[facility] [place] [address] Eosinophils/100 leukocytes 0.0 % Normal 0.0 - 6.0 [facility] Comment on above: Performed By: #### C BCDF ####[facility] [place] [address] Erythrocyte distribution width Auto Ratio (RBC) 13.7 % Normal 11.5 - 14.5 [facility] Comment on above: Performed By: #### C BCDF ####[facility] [place] [address] Erythrocytes (RBC) 4.12 x10E12/L Low 4.50 - 5.90 [facility] Comment on above: Performed By: #### C BCDF ####[facility] [place] [address] Hematocrit (HCT) 34.4 % Low 41.0 - 52.0 [facility] Comment on above: Performed By: #### C BCDF ####[facility] [place] [address] Hemoglobin mass conc (Bld) 11.6 g/dL Low 13.5 - 17.5 [facility] Comment on above: Performed By: #### C BCDF ####[facility] [place] [address] Lymphocytes 0.90 10*3/uL Low 1.20 - 4.80 [facility] Comment on above: Performed By: #### C BCDF ####[facility] [place] [address] Lymphocytes/100 leukocytes 9.6 % Low 13.0 - 44.0 [facility] Comment on above: Performed By: #### C BCDF ####[facility] [place] [address] MCHC mass conc (RBC) 33.7 g/dL Normal 32.0 - 36.0 [facility] Comment on above: Performed By: #### C BCDF ####[facility] [place] [address] MCV 83 fL Normal 80 - 100 [facility] Comment on above: Performed By: #### C BCDF ####[facility] [place] [address] Monocytes 0.05 10*3/uL Low 0.10 - 1.00 [facility] Comment on above: Performed By: #### C BCDF ####[facility] [place] [address] Monocytes/100 leukocytes 0.5 % Low 2.0 - 10.0 [facility] Comment on above: Performed By: #### C BCDF ####[facility] [place] [address] Neutrophils 8.32 10*3/uL High 1.20 - 7.70 [facility] Comment on above: Performed By: #### C BCDF ####[facility] [place] [address] Nucleated erythrocytes 0.0 /100 WBC Normal 0.0-0.0 [facility] Comment on above: Performed By: #### C BCDF ####[facility] [place] [address] Platelets 372 10*3/uL Normal 150 - 450 [facility] Comment on above: Performed By: #### C BCDF ####[facility] [place] [address] WBC (Leukocytes) 9.3 10*3/uL Normal 4.4 - 11.3 [facility] Comment on above: Performed By: #### C BCDF ####[facility] [place] [address] STAPH/MRSA SCREENon 01-12-20 STAPH/MRSA SCREEN PATIENT: Domi POSADAS LOCATION: [facility]#: [id number] : 52 AGE: SEX: M ORDERED BY: MATIAS MACHADO: ANTERIOR NARES COLLECTED: 01/11/17 21:22ANTIBIOTICS AT [facility] RECEIVED : 01/11/17 21:56SITE: Left R E S U L T S STAPH/MRSA SCREEN FINAL 01/13/17 11:33 NO Staphylococcus aureus ISOLATED. Normal [facility] Comment on above: Performed By: #### C OAGS ####[facility] [place] [address] ANES Lindsey 11-17-2016 ANES POST HNO ID: [id number] thor: Jose R Garciaervice: AnesthesiologyAuthor Type: AnesthesiologistType: Anesthesia PostOpFiled: 11/17/2016 12:35 PMNote Text:POST ANESTHESIA EVALUATION NOTESERVICE DATE: 11/17/2016SERVICE TIME: 12.43DOB: 1950Vitals: 11/18/1711Temp: 36.8 ?C (98.2 ?F) 36.4 ?C (97.5 ?F) 11/18/1711P: 172/92 133/69 142/82 11/18/1711Pulse: 108 67 69 11/18/1711Resp: 16 14 16 09/22/075349 09/22/347083 09/22/755683BvB3: 97% 99% 100%Validated Vital Signs: YesPOST ANES STATUS: No apparent anesthetic complications. The patient isappropriately hydrated with stable respiratory and cardiovascular status.Patient has safe and adequate airway control. The patient has appropriatepain relief and no significant post operative nausea or vomiting. Thepatient has achieved baseline mental status.Further assessment by Anesthesia Service: NoneOther Remarks:SIGNATURE: Jose R Avalos MD PATIENT NAME: Fadi CrandallTE: November 17, 2016 : 12:34 PM PAGER/CONTACT #: anesthesia [facility] ANES PREOPon 11-17-2016 ANES PREOP HNO ID: [id number] thor: Jose R Garciaervice: AnesthesiologyAuthor Type: AnesthesiologistType: Anesthesia PreOpFiled: 11/17/2016 12:34 PMNote Text: ANESTHESIOLOGY DAY OF SURGERY NOTESERVICE DATE: 11/17/2016SERVICE TIME: 11.00DOB: [birth year]Procedure(s) (LRB):CARDIOVERSION EXTERNAL ELECTIVE (N/A)Surgeon(s):Padilla BelleuEstimated body mass index is 24.66 kg/(m2) as calculated from thefollowing: Height as of this encounter: 175.3 cm (5' 9). Weight as of this encounter: 75.8 kg (167 lb).Most recent hematocrit and potassium results:Hematocrit 40.1 02/09/2011Potassium 4.3 08/29/2011NES DOS/PREOP NOTE:Vitals: 111 11/18/17115BP: 172/92 133/69 142/82Pulse: 108 67 69Resp: 16 14 16Temp: 36.8 ?C (98.2 ?F) 36.4 ?C (97.5 ?F)TempSrc: Temporal Artery Temporal ArterySpO2: 97% 99% 100%Weight: 75.8 kg (167 lb)Height: 175.3 cm (5' 9)ACTIVE PROBLEM LISTCad (Coronary Artery Disease)HyperlipidemiaHtn (Hypertension)PAST MEDICAL HISTORYDiagnosis Date- CAD (coronary artery disease)- HTN (hypertension)- HyperlipidemiaPAST SURGICAL HISTORYProcedure Laterality Date- NONE 6/14/2010No family history on file.Social History:Social HistorySubstance Use Topics- Smoking status: Former Smoker Types: Cigars Quit date: 09/19/2011- Smokeless tobacco: Not on file- Alcohol use Not on fileNo current facility-administered medications on file prior to encounter.Current Outpatient Prescriptions on File Prior to Encounter:lisinopril 40 mg tablet Take 2 tablets by mouth once daily.cloNIDine 0.2 mg tablet Take 1 tablet by mouth twice daily.metoprolol succinate XL, long acting, (TOPROL XL) 100 mg Tb24 Take 2tablets by mouth once daily. (Patient taking differently: Take 25 mg bymouth twice daily.)ascorbic acid (VITAMIN C) 500 mg tablet Take 1 tablet by mouth once daily.resveratrol 100 mg Cap 37.5mg dailyCholecalciferol, Vitamin D3, (VITAMIN D) 1,000 unit Cap Take 1 capsule bymouth once daily.B Complex-Folic Acid (B COMPLEX 100) 0.4 mg Tab Take by mouth stxenCmjbs-4-CZT-EPA-Fish Oil 1,000 (120-180) mg Cap Take one by mouth dailyUbidecarenone-[place] 3-Vit E (COQ-10 AND FISH OIL) 50-300-30 mg-mg-unit CapTake by mouth dailycalcium, elemental, Tab Take 1 tablet by mouth twice daily. Take 500 (or600) mg tablet twice daily.Current Facility-Administered Medications:0.9% NaCl 2-10 mL 2-10 mL INTRAVENOUS q 12 H Padilla Deyavarapu 5 mLat 11/17/16 1130lactated ringers infusion 30 mL/hr INTRAVENOUS CONTINUOUS Deborah (Office Sweeper)Karenergies:ALLER Jb Reactions- PenicillinsDOS EXAM: Adequate NPO status: YesAnesthetic risks, benefits, alternatives, personnel and consent discussed:YesPatient agrees to proceed: YesPrevious Anesthesia: No history of adverse event.Airway Assessment: MP 2; Neck ROM: Full ROM without neurologic symptoms;Airway Evaluation: No significant abnormalitiesSymptoms of Sleep Apnea: NoneDentition: Poor dentitionAdditional Physical Exam:Lungs: Patient health status unchanged since recent history and physical.See history and physical for exam findings.Lungs clear to auscultation. Good diaphragmatic excursion.Cardiac: Patient health status unchanged since recent history andphysical. See history and physical for exam findings.normal S1 and S2; no rubs, no murmurs, and no gallopsAdditional Pertinent Findings: N/ABlood Products: Not anticipated for this procedure.Anesthetic Plan: MAC with SedationPain Management Plan: Parenteral or OralASA Class: 3Other Medical Problems: NoneChronic Beta Tavon medication administered within 24 hours: N/AI have interviewed and examined the patient. I have reviewed the medicalrecord and/or the pre-anesthesia evaluation, pertinent labs, and testresults.Significant changes in the patient's condition since the History andPhysical, not otherwise documented in primary service progress notes: [facility] contains updated information obtained within 48 hours ofSurgery/Procedure.SIGNATU RE: Jose R Avalos MD PATIENT NAME: Fadi CrandallTE: November 17, 2016 : 12:33 PM CSN: [id number] [facility] HISTORY PHYSICALon HISTORY PHYSICAL HNO ID: [id number] thor: Padilla Frost RamanavarapuService: Cardiovascular DiseaseAuthor Type: PhysicianType: HANDPFiled: 11/17/2016 9:40 AMNote Text:HISTORY AND PHYSICAL EXAMINATIONPATIENT NAME: Fadi PosadasMRN: [id number] DATE: 11/17/2016SERVICE TIME: 9:36 [facility] PHYSICIAN: Kip Barry [facility]ITALPRASANNA COMPLAINT: DyspneaASSESSMENT AND PLAN:Atrial flutter with rapid ventricular rateCAD and status post CABGHypertensionStatus post cardioversion for flutter following CABGCV today'Might need ablation if he continues to stay in flutterHPI: This is a 66 year old male with history of CAD, CABG,HTN,AF andcardioversion for atrial flutter following open heart surgery stillremains short of breath and he was found to be in atrial flutter withrapid ventricular rate at Dr Leone's Office yesterday. He is brought intoday for elective cardioversion. No chest pain or orthopnea or edema oflegs. He has been compliant with his meds and caffeine.PAST MEDICAL HISTORY:PAST MEDICAL HISTORYDiagnosis Date- CAD (coronary artery disease)- HTN (hypertension)- HyperlipidemiaPAST SURGICAL HISTORY:PAST SURGICAL HISTORYProcedure Laterality Date- NONE 08/09/2009FAMILY HISTORY: No family history on file.SOCIAL HISTORY:Social HistorySubstance Use Topics- Smoking status: Former Smoker Types: Cigars Quit date: 09/19/2011- Smokeless tobacco: Not on file- Alcohol use Not on fileMEDICATIONS:Prior to Admission Medications:No prescriptions prior to admission.ALLERGIES:ALLERGI ESAllergen Reactions- PenicillinsCOMPLETE REVIEW OF SYSTEMS:REVIEW OF SYSTEMSGENERAL: No weight loss, malaise or feversHEENT: Negative for frequent or significant headaches, No changes inhearing or vision, no nose bleeds or other nasal problemsNECK: Negative for lumps, goiter, pain and significant neck swellingRESPIRATORY: Negative for cough, hemoptysis, wheezing, COPD, dyspnea orshortness of breathCARDIOVASCULAR: Remains short of breath and has palpitationsGI: No nausea, vomiting, or diarrheaGU: No history of dysuria, frequency or incontinenceMUSCULOSKELETAL : Negative for joint pain or swelling, back pain or musclepainSKIN: Negative for lesions, rash, and itchingPSYCH: Negative for sleep disturbance, mood disorder and recentpsychosocial stressors.HEMATOLOGY/LYMPHO LOGY Negative for prolonged bleeding, bruising easily orswollen nodesENDOCRINE: Negative for cold or heat intolerance, polyuria, polydipsia andgoiterNEURO: No history of headaches, syncope, paralysis, seizures or tremorsPHYSICAL EXAM:No data found.There is no height or weight on file to calculate BMI.GENERAL: Alert, no distress, cooperativeSKIN: Skin color, texture, turgor normal. No rashes or lesions.HEAD/SINUSES: No significant findingsEYES: PERRLA, EOMIEARS: External ears normal, canals clearNOSE: Nares normal. Septum midline.OROPHARYNX: Lips, mucosa, and tongue normal. Teeth and gums normal.Oropharynx normal.NECK: No jugulovenous distention, No carotid bruits, Carotid pulse normalcontour, SuppleLUNGS: Lungs clear to auscultation, Good diaphragmatic excursionCARDIAC: Normal S1 and S2; no rubs, murmurs, or gallopsABDOMEN: Abdomen soft, non-tender, BS normal, No masses or organomegalyEXTREMITIES: Extremities normal, no deformities, edema, clubbing or skindiscoloration. Good capillary refill., No ulcersNEURO: Gait normal. Reflexes normal and symmetric. Sensation grosslyintact, Cranial nerves II-XII intactPULSES: 2+ radial, 2+ carotidDATA: Radiology: Laboratory: Other:SIGNATURE: Padilla Frost Satish MDDATE: November 17, 2016TIME: 9:35 AM [facility] NURSING PROGon 11-17-2016 NURSING PROG HNO ID: [id number] thor: Mayco WeaverRn) LAZARO Martinezervice: NursingAuthor Type: Registered NurseType: Nursing Progress NoteFiled: 11/17/2016 2:24 PMNote Text:[address] Saba. Confirmed amiodarone dosage. Patient is to [id number] mg twice a day for 2 weeks. Metoprolol 50mg daily. Then follow up withDr Saba in 2 weeks.verbal and written instructions given to patient andwife. Teach back method used.HR regular. [facility] NURSING PROG HNO ID: [id number] thor: Sherine Kerr) LAZARO Goffervice: NursingAuthor Type: Registered NurseType: Nursing Progress NoteFiled: 11/17/2016 12:13 PMNote Text:Pt arousable to verbal stimuli, denies any pain, VSS. Monitor shows sinusbrady/sinus rhythm. Dr. Saba speaking with patient at bedside [facility] PROCEDUREon 11-17-2016 PROCEDURE HNO ID: [id number] thor: Padilla BelleuService: Cardiovascular DiseaseAuthor Type: PhysicianType: ProceduresFiled: 11/17/2016 12:06 PMNote Text:BRIEF OPERATIVE NOTE - CARDIOVERSIONPatient Name: Fadi PosadasMRN: [id number] Date: 11/17/2016INDICATION: Atrial fibrillationSEDATION: PropafolJOULES: 225PT/INR: EliquisFINDINGS: Converted to sinusCOMPLICATIONS: NoneCONDITION: GoodFOLLOW UP: Two weeksSignature: Padilla Covarrubias MDDate: November 17, 2016Time: 11:45 AM [facility] HOSPon 11-16-2016 HOSP Patient:Iliana Posadas onMRN: Height:5' 9(1.753 m)Weight:No patient weight recorded within the last 30 days.Outpatient Medications as of 11/17/16:lisinopril 40 mg tabletcloNIDine 0.2 mg tabletmetoprolol succinate XL, long acting, (TOPROL XL) 100 mg [id number] sustained release (NIASPAN) 500 mg tabletascorbic acid (VITAMIN C) 500 mg tabletaspirin (LOUIE ASPIRIN) 325 mg tabletCholecalciferol, Vitamin D3, (VITAMIN D) 1,000 unit CapB Complex-Folic Acid (B COMPLEX 100) 0.4 mg KtdQhiny-7-OBL-EPA-Fish Oil 1,000 (120-180) mg CapUbidecarenone-[place] 3-Vit E (COQ-10 AND FISH OIL) 50-300-30 mg-mg-unit Capresveratrol 100 mg Capcalcium, elemental, TabAdmission/Clinic Administered Medications as of 11/17/16:Patient has no admission medications.Problem List:CAD (coronary artery disease) [I25.10]Hyperlipidemia [E78.5]HTN (hypertension) [I10]Allergies:Allergies have not been reviewed in the past 30 days.Lab ValuesNo results within the last 30 days for the following basenames: K,HCTNo progress notes entered within the past 30 days [facility] Vital Signs Date Time Vital Sign Value Performing Clinician Leif henderson 04-18-2024 15:13-0500 Body height 175.26 cm lAfonso BRANDT Work Phone: [facility] 04-18-2024 15:13-0500 Body mass index (BMI) [Ratio] 25.5 kg/m2 Alfonso STANLEYC Work Phone: [facility] 04-18-2024 15:13-0500 Body temperature 97.5 [degF] Alfonso STANLEYC Work Phone: [facility] 04-18-2024 15:13-0500 Body weight 78.47 kg Alfonso STANLEYC Work Phone: [facility] 04-18-2024 15:13-0500 Diastolic blood pressure 78 mm[Hg] Alfonso STANLEYC Work Phone: [facility] 04-18-2024 15:13-0500 Heart rate 77 /min Alfonso Baptiste [employer]AL W[employer]E TREATMENT TECHNICIAN-C Work Phone: [facility] 04-18-2024 15:13-0500 Respiratory rate 18 /min Alfonsoapril BoogieBaptiste INDUSTRIAL WASTE TREATMENT TECHNICIAN-C Work Phone: [facility] 04-18-2024 15:13-0500 SaO2% (BldA) [Mass fraction] 98 % Alfonsoapril BoogieBaptiste INDUSTRIAL WASTE TREATMENT TECHNICIAN-C Work Phone: [facility] 04-18-2024 15:13-0500 Systolic blood pressure 130 mm[Hg] Alfonso Villa INDUSTRIAL WASTE TREATMENT TECHNICIAN-C Work Phone: [facility] 05-11-2023 15:13-0400 Body height 175.26 cm [facility] 05-11-2023 15:13-0400 Body mass index (BMI) [Ratio] 26.1 kg/m2 [facility] 05-11-2023 15:13-0400 Body temperature 97.5 [degF] [facility] 05-11-2023 15:13-0400 Body weight 80.28 kg [facility] 05-11-2023 15:13-0400 Diastolic blood pressure 80 mm[Hg] [facility] 05-11-2023 15:13-0400 Heart rate 87 /min [facility] 05-11-2023 15:13-0400 Respiratory rate 18 /min [facility] 05-11-2023 15:13-0400 SaO2% (BldA) [Mass fraction] 97 % [facility] 05-11-2023 15:13-0400 Systolic blood pressure 142 mm[Hg] [facility] 12-19-2022 15:10-0400 Body height 175.26 cm [facility] 04-11-2022 16:37-0500 Body height 175.26 cm [facility] 04-11-2022 16:37-0500 Body mass index (BMI) [Ratio] 25.2 kg/m2 [facility] 04-11-2022 16:37-0500 Body temperature 97.2 [degF] [facility] 04-11-2022 16:37-0500 Body weight 77.56 kg [facility] 04-11-2022 16:37-0500 Diastolic blood pressure 60 mm[Hg] [facility] 04-11-2022 16:37-0500 Heart rate 97 /min [facility] 04-11-2022 16:37-0500 Respiratory rate 18 /min [facility] 04-11-2022 16:37-0500 SaO2% (BldA) [Mass fraction] 97 % [facility] 04-11-2022 16:37-0500 Systolic blood pressure 130 mm[Hg] [facility] 04-19-2021 15:09-0500 Body height 175.26 cm [facility] Work Phone: 04-19-2021 15:09-0500 Body mass index (BMI) [Ratio] 26.1 kg/m2 [facility] Work Phone: 04-19-2021 15:09-0500 Body temperature 97.3 [degF] [facility] Work Phone: 04-19-2021 15:09-0500 Body weight 80.28 kg [facility] Work Phone: 04-19-2021 15:09-0500 Diastolic blood pressure 90 mm[Hg] [facility] Work Phone: 04-19-2021 15:09-0500 Heart rate 85 /min [facility] Work Phone: 04-19-2021 15:09-0500 Respiratory rate 18 /min [facility] Work Phone: 04-19-2021 15:09-0500 SaO2% (BldA) [Mass fraction] 98 % [facility] Work Phone: 04-19-2021 15:09-0500 Systolic blood pressure 140 mm[Hg] [facility] Work Phone: Encounters Encounter Date Encounter Type Care Provider Facility Start: 06-05-2024 End: 06-05-2024 ambulatory ALFONSO BAPTISTE Facility:[facility] Start: 04-18-2024 End: 04-18-2024 ambulatory Alfonso Baptiste IND[employer] W[employer]E TREATMENT TECHNICIAN-C Work Phone: [facility] Work Phone: Start: 04-18-2024 End: 04-18-2024 Patient encounter procedure Alfonso Baptiste IND[employer] WASTE TREATMENT TECHNICIAN-C -Laboratory, Specimen Work Phone: Start: 04-18-2024 End: 04-18-2024 ambulatory Alfonsoapril Baptiste INDUSTRIAL WASTE TREATMENT TECHNICIAN Facility:[facility] Start: 12-10-2023 End: 12-10-2023 ambulatory ALFONSOApril BAPTISTE Facility:[facility] Start: 10-01-2023 End: 10-01-2023 ambulatory Alfonsoapril Baptiste INDUSTRIAL WASTE TREATMENT TECHNICIAN Facility:[facility] Start: 05-11-2023 End: 05-11-2023 ambulatory [facility] Work Phone: Start: 05-11-2023 End: 05-11-2023 Patient encounter procedure [facility]-Laboratory, Specimen Work Phone: Start: 05-11-2023 End: 05-11-2023 ambulatory Alfonsoapril Baptiste INDUSTRIAL WASTE TREATMENT TECHNICIAN Facility:[facility] Start: 12-19-2022 End: 12-19-2022 ambulatory [facility] Work Phone: Start: 12-19-2022 End: 12-19-2022 Patient encounter procedure [facility]-Laboratory, Specimen Work Phone: Start: 04-11-2022 End: 04-11-2022 ambulatory [facility] Work Phone: Start: 04-11-2022 End: 04-11-2022 Patient encounter procedure [facility]-Laboratory, Specimen Start: 01-06-2022 End: 01-06-2022 Patient encounter procedure [facility]-Laboratory, Specimen Start: 06-27-2021 End: 06-27-2021 Patient encounter procedure [facility]-Laboratory, Specimen Start: 05-24-2021 End: 05-24-2021 Patient encounter procedure [facility]-MRI - [facility] Start: 04-19-2021 End: 04-19-2021 Patient encounter procedure [facility]-Laboratory, Specimen Start: 01-11-2017 End: 01-16-2017 Evaluation and management of inpatient Nicole Ruthann Sila Facility:[facility] Start: 11-17-2016 End: 11-17-2016 Ambulatory [facility] Procedures Date Procedure Procedure Detail Performing Clinician Start: 05-24-2021 MRI of pelvis with contrast Start: 01-13-2017 Introduction of Nutr itional Substance into Upper GI, Via Natural or Artificial Opening Nicole Sila Start: 01-12-2017 Insertion of Infusio n Device into Right Subclavian Vein, Percutaneous Approach Nicole Sila Payers Date Payer Category Payer Medicare [id number] 2023 Self-pay [id number] 2008 Medicare 2008 Unknown 1950 Unknown [id number] 2.16.8 [id number] 1950 Unknown [id number] 2.16.8 [id number] 1950 Unknown [id number] 2.16.8 [id number] Medicare [id number] Private Health Insurance [id number] Unknown [id number] Unknown [id number] 2.16.8 [id number] Unknown [id number] 2.16.8 [id number] Unknown [id number] 2.16.8 [id number] Unknown [id number] Social History Date Type Detail Facility Start: 06-08-2020 End: 06-08-2020 Tobacco smoking status NHIS Unknown if ever smoked [facility] Start: 1950 Sex Assigned At Male [facility] Start: 06-08-2020 Tobacco smoking stat us NHIS Smokes tobacco daily (finding) [facility] Start: 05-01-2024 Sex Male (finding) [facility] Evaluation note 04-18-2024 Note Date & Type Note Facility 04-18-2024 Evaluation note Diagnosis Onset Date Resolution Anemia acute April 18, 2024 2:55pm BPH (benign prostatic hyperplasia) acute April 18, 025 2:55pm Hyperlipemia acute March 2:55pm Hypertension chronic March 2:55pm [facility] Work Phone: Evaluation note Note Date & Type Note Facility Evaluation note Diagnosis Onset Date Anemia acute Hyperlipemia acute Hypertension [facility] Work Phone: Evaluation note Note Date & Type Note Facility Evaluation note Diagnosis Onset Date BPH (benign prostatic hyperplasia) acute Elevated PSA, greater than o r equal to 20 ng/ml acute Anemia acute Elevated PSA, greater than o r equal to 20 ng/ml acute Hyperlipemia acute Hypertension [facility] Work Phone: Evaluation note Note Date & Type Note Facility Evaluation note Diagnosis Onset Date BPH (benign prostatic hyperplasia) acute Elevated PSA measurement acu te [facility] Work Phone: Evaluation note Note Date & Type Note Facility Evaluation note Diagnosis Onset Date Abnormal liver enzymes acute Anemia acute Elevated PSA measurement acu te Hyperlipemia acute Hypertension [facility] Work Phone: Reason for referral (narrative) Note Date & Type Note Facility Reason for referral (narrative) No reason for referral information available [facility] Work Phone: Summary Purpose Family History No Family History Records FoundNo Family History Records FoundNo Family History Records FoundNo Family History Records FoundNo Family History Records Found Advance Directives No Advanced Directives Records FoundNo Advanced Directives Records FoundNo Advanced Directives Records FoundNo Advanced Directives Records FoundNo Advanced Directives Records Found Chief Complaint and Reason for Visit Chief Complaint medication refills Elevated prostate specific antigen [PSA] Reason for Visit Anemia Hyperlipemia Hypertension Chief Complaint PSA) medication refills Reason for Visit BPH (benign prostati c hyperplasia) Elevated PSA, greater than or equal to 20 ng/ml Anemia Elevated PSA, greater than or equal to 20 ng/ml Hyperlipemia Hypertension Chief Complaint labs to be drawn PSA Reason for Visit BPH (benign prostati c hyperplasia) Elevated PSA measurement Chief Complaint medication refills/L abs Reason for Visit Abnormal liver enzym es Anemia Elevated PSA measurement Hyperlipemia Hypertension Chief Complaint Admit Date medication refills April 18, 2024 2:55pm LABWORK April 18, 2024 10:53pm Reason for Visit Admit Date Anemia April 18, 2024 2:55pm BPH (benign prostatic hyperplasia) Febru manuel 2024 2:55pm Hyperlipemia April 18, 2024 2:55pm Hypertension April 18, 2024 2:55pm Additional Source Comments (unrecognized sect ion and content) No Status Records FoundNo Status Records FoundNo Status Records FoundNo Status Records FoundNo Status Records Found INFORMATION SOURCE (unrecogn ized section and content) DATE CREATED AUTHOR 08/21/2017 [facility] DATE CREATED AUTHOR AUTHOR'S ORGANIZ ATION 08/22/2017 [facility] DATE CREATED AUTHOR AUTHOR'S ORGANIZ ATION 08/30/2017 [facility] DATE CREATED AUTHOR AUTHOR'S ORGANIZ ATION 05/03/2024 [facility] DATE CREATED AUTHOR AUTHOR'S ORGANIZ ATION 06/11/2024 [place] Goals (unrecognized section and content) Goals may be documented in a n alternate sectionGoals may be documented in an alternate sectionGoals may be documented in an alternate sectionGoals may be documented in an alternate sectionGoals may be documented in an alternate sectionGoals may be documented in an alternate section Care Teams (unrecognized sec tion and content) Team Status: Active Member Role Status Dates Alfonso Baptiste INDUSTRIAL WASTE TREATMENT TECHNICIAN, INDUSTRIAL WASTE TREATMENT TECHNICIAN-C Primary Care Provider Active Team Status: Inactive Member Role Status Dates Alfonso Baptiste NP, INDUSTRIAL WASTE TREATMENT TECHNICIAN-C Primary Care Pr ovider, Attending Provider, Referring Provider Active Team Status: Inactive Member Role Status Dates Alfonso Baptiste NP, INDUSTRIAL WASTE TREATMENT TECHNICIAN-C Primary Care Provider, Attend ing Provider Active Team Status: Inactive Member Role Status Dates Alfonos Baptiste NP, INDUSTRIAL WASTE TREATMENT TECHNICIAN-C Primary Care Provider Active Start: April 18, 2024 End: April 18, 2024 Alfonso Baptiste NP, NP-C Attending Provider Active Start: April 18, 2024 End: April 18, 2024 Alfonso Baptiste NP, NP-C Referring Provider Active Start: April 18, 2024 End: April 18, 2024 FOR RECORDS PERTAINING TO PATIENTS WHO ARE [...] BE BASED ON THE PRIMARY CLINICAL RECORDS. [facility] [employer] provides no warranty or guarantee of the accuracy or completeness of information in this document.
[2024-10-08 22:45] LABS: PSA,Total- Diagnostic 2.99 ng/mL (0.00-4.00)
== END | disposition home or self-care (01) ==
PROVIDERS: PCP Nurse Practitioner; Referring Provider Nurse Practitioner; Visit Provider Nurse Practitioner
DX: R97.20 Elevated prostate specific antigen [PSA] (principal); N40.0 Benign prostatic hyperplasia without lower urinary tract symptoms
CPT/HCPCS: 84153